=== PATIENT | female | born 1975 | race Hispanic/Latino ===

== ENCOUNTER → 2024-05-14 | Outpatient (CLI) | payer OTHER | END | disposition home or self-care (01) | LOC: RAH 09:39 | PROVIDERS: ATTEND Surgery | DX: C20 Malignant neoplasm of rectum (principal); Z93.2 Ileostomy status | CPT/HCPCS: 74270; Q9958 ==

== ENCOUNTER 2024-07-01 06:26 | Day surgery (SDC) | payer OTHER ==
[~2024-07-01] VITALS: Ht 154.9 cm; Wt 87.5 kg
[~2024-07-01 06:26] MED LIST: ACET-2247 PO; APIX5TAB PO; BUSP5TAB3 PO; DIPH1TAB PO; FOLI0.4T6 PO; INSU100C14 SQ; INSU100V37 SQ; MELA5CAP PO; MIDO10TA PO; MULT-1258 PO; ROSU5TAB43 PO; SODI650T PO; ZALE5CAP6 PO
[2024-07-01 07:13] VITALS: BP 98/67; PULSE 72; RESP 16; TEMP 96.5
[2024-07-01] MEDS ORDERED: MIDO10TA PO (07:20)
[2024-07-01] MEDS ORDERED: SERT50TA PO (07:28)
[2024-07-01] MEDS: 0.9%NACL 1000ML 1,000 ML IV ONE (07:41)
[2024-07-01] MEDS ORDERED: proPOFol 10 MG/ML 20ML VIAL IV ONE (07:57)
[2024-07-01] MEDS ORDERED: LIDOCAINE PF 100MG/5ML (2%) SYRINGE 5ML ONE (08:49)
[2024-07-01 09:56] VITALS: BP 108/56; PULSE 62; RESP 16; TEMP 97.9
[2024-07-01 10:11] VITALS: BP 103/54; PULSE 62; RESP 16
[2024-07-01 10:26] VITALS: BP 106/56; PULSE 60; RESP 16; TEMP 97.9
== END 2024-07-01 10:30 | disposition home or self-care (01) ==
LOC: DAH 06:26 → ENDO 06:26
PROVIDERS: ATTEND Surgery
DX: C20 Malignant neoplasm of rectum (principal); K62.4 Stenosis of anus and rectum; R93.3 Abnormal findings on diagnostic imaging of other parts of digestive tract; F41.9 Anxiety disorder, unspecified; F32.A Depression, unspecified; E11.22 Type 2 diabetes mellitus with diabetic chronic kidney disease; N18.9 Chronic kidney disease, unspecified; E78.5 Hyperlipidemia, unspecified; R19.7 Diarrhea, unspecified; Z86.718 Personal history of other venous thrombosis and embolism; Z98.0 Intestinal bypass and anastomosis status; Z79.899 Other long term (current) drug therapy
CPT/HCPCS: 45378; 84132; 82948; 81025; 36415; J7030; J2001; J2704; A4615; A4215 ×2; A4223; A4222; A4221; A4663; A4606; J3490

== ENCOUNTER 2024-10-12 10:00 | Inpatient (IN) | payer OTHER ==
[2024-10-09 13:03] LABS: BASOPHILS # (AUTO) 0.03 K/uL (0.00-0.20); BASOPHILS % (AUTO) 0.4 % (0.0-5.0); EOSINOPHILS # (AUTO) 0.14 K/uL (0.00-0.70); EOSINOPHILS % (AUTO) 1.9 % (0.0-8.0); HEMATOCRIT 32.5 % (36-48); IMMATURE GRANULOCYTE ABSOLUTE 0.01 K/uL (0-1); LYMPHOCYTES # (AUTO) 1.8 K/uL (1.0-4.8); LYMPHOCYTES % (AUTO) 23.9 % (21.0-51.0); MEAN CORPUSCULAR HEMOGLOBIN 28.3 pg (27.0-33.0); MEAN CORPUSCULAR HGB CONC 30.5 g/dL (32.0-36.0); MEAN CORPUSCULAR VOLUME 92.9 fL (79-99); MONOCYTES # (AUTO) 0.3 K/uL (0.1-1.0); MONOCYTES % (AUTO) 4.1 % (3.0-13.0); NEUTROPHILS # (AUTO) 5.2 K/uL (1.8-7.7); NEUTROPHILS % (AUTO) 69.6 % (40.0-77.0); PLATELET COUNT (AUTO) 335 K/uL (130-400); RED CELL DISTRIBUTION WIDTH 17.2 % (11.0-15.5); WHITE BLOOD COUNT (AUTO) 7.5 K/uL (4.8-10.8)
[2024-10-09 13:14] LABS: INR 1.03 (0.85-1.15); PROTHROMBIN TIME 11.1 SEC (9.6-11.6)
[2024-10-09 13:15] LABS: PARTIAL THROMBOPLASTIN TIME 26.7 SEC (26.3-35.5)
[2024-10-09 13:19] LABS: ALBUMIN 3.5 g/dL (3.5-5.0); BILIRUBIN,TOTAL 0.3 mg/dL (0.2-1.0); CREATININE 2.3 mg/dL (0.5-1.0); POTASSIUM 3.9 mmol/L (3.5-5.1); TOTAL PROTEIN, SERUM 8.6 g/dL (6.0-8.3)
[2024-10-09 13:26] VITALS: BP 108/69; PULSE 72; RESP 16; TEMP 97
--- NOTE | 2024-10-10 06:38 | EKG ---
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
[~2024-10-12] VITALS: Ht 154.9 cm; Wt 89.4 kg
[~2024-10-12 10:00] MED LIST changes: -APIX5TAB PO; -DIPH1TAB PO; -FOLI0.4T6 PO; -INSU100C14 SQ; -INSU100V37 SQ; -MIDO10TA PO; +MIDO10TA3 PO; -ROSU5TAB43 PO; +ROSU5TAB51 PO; +SERT50TA PO
[2024-10-12] MEDS ORDERED: INSU100V37 SQ (13:48)
[2024-10-12] MEDS ORDERED: DIPH1TAB PO (13:48)
[2024-10-12] MEDS ORDERED: INSU200I SQ (13:48)
[2024-10-12] MEDS ORDERED: FERR236T3 PO (13:48)
[2024-10-12] MEDS ORDERED: APIX2.5T PO (13:48)
[2024-10-12] MEDS ORDERED: INSU12CA IH (13:50)
--- NOTE | 2024-10-13 16:43 | NUR ---
RE: LABS REPORTED BMP RESULTS TO DR MORENO (PATIENT HAS HX OF CKD STAGE III-IV). NO NEW ORDERS RECEIVED. CBC/BMP RESULTS SENT TO AREN/DR MOORE. PER MD AREN IS IN SURGERY. WILL ASSESS PATIENT ON DOS AND GIVE ANY NEW ORDERS THEN.
[2024-10-14] VITALS (29 sets, daily range): BP systolic 97–121; BP diastolic 51–61; PULSE 70–88; RESP 13–20; TEMP 97–98.6
[2024-10-14] MEDS: INVANZ 1GM+NS 50ML IVPB 50 ML IV ONE (06:30)
[2024-10-14] MEDS ORDERED: LIDOCAINE PF 100MG/5ML (2%) SYRINGE 5ML ONE (06:47)
[2024-10-14] MEDS ORDERED: proPOFol 10 MG/ML 20ML VIAL IV ONE (06:47)
[2024-10-14] MEDS ORDERED: MIDAZOLAM HCL 1 MG/ML 2ML VIAL ONE (06:48)
[2024-10-14] MEDS ORDERED: FENTanyl CITRate PF 50 MCG/1 ML 2ML VIAL ONE ×2 (06:48→11:02)
[2024-10-14] MEDS ORDERED: rocuRONium bROMide 10MG/1ML 5ML VL ONE ×2 (06:48→09:05)
[2024-10-14] MEDS ORDERED: dexmedeTOMIDine HCL 200 MCG/2 ML VIAL IV ONE (07:11)
[2024-10-14] MEDS ORDERED: ketaMINE HCL 100 MG/ML 5ML VIAL IJ ONE (07:12)
[2024-10-14] MEDS ORDERED: phenylEPHRINE HCL 10 MG/ML 1ML VIAL IV ONE ×3 (08:36→09:38)
[2024-10-14] MEDS ORDERED: dexaMETHasone SOD PHOSPHATE 10MG/ML 1ML VIAL ONE (08:50)
[2024-10-14] MEDS ORDERED: ondanSETRON 4MG INJ ONE (08:50)
[2024-10-14] MEDS ORDERED: DiphenhydrAMINE HCL 50 MG/ML VIAL ONE (08:52)
[2024-10-14] MEDS ORDERED: ketOROlac 30MG VIAL (30MG/ML) ONE (08:52)
[2024-10-14] MEDS: 0.9%NACL 1000ML 1,000 ML IV ONE (09:00)
[2024-10-14] MEDS: LIDOCAINE 1%-EPI 1:100,000 20 ML VIAL ONE (09:08)
[2024-10-14] MEDS: BUPIvacaine/PF 0.5% 30ML VIAL ONE (09:08)
[2024-10-14] MEDS ORDERED: ePHEDrine SULFate 50 MG/ML AMPULE ONE (09:12)
[2024-10-14] MEDS ORDERED: GLYCOPYRROLATE 0.2 MG/ML 5 ML VIAL ONE (11:47)
[2024-10-14] MEDS ORDERED: NEOSTIGMINE METHYLSULFATE 1MG/ML IV ONE (11:48)
[2024-10-14] MEDS: INSULIN humuLIN R 100 UNIT/ML 3ML ONE (12:30)
[2024-10-14] MEDS: MEPERIDINE-PF 25 MG/ML SYG ONE (12:38)
[2024-10-14] MEDS ORDERED: D5W-1/2 NS/20MEQ KCL 1,000 ML IV SCH (13:00)
[2024-10-14] MEDS ORDERED: INSULIN humuLIN R 100 UNIT/ML 3ML SQ PRN (13:00)
--- NOTE | 2024-10-14 13:08 | OP ---
Operative Note: DATE OF PROCEDURE: 10/14/24 SURGEON: BECKY MOORE MD STATISTICAL REPORTING ANALYST: [None] ANESTHESIA: [General endotracheal anesthesia] ANESTHESIOLOGIST/CADDIE SUPERVISOR: [] PREOPERATIVE DIAGNOSIS: [Ileostomy status. Chronic kidney injury. Morbid obesity. History of rectal cancer. Rectal vaginal fistula.] POSTOPERATIVE DIAGNOSIS: [Ileostomy status. Chronic kidney injury. Morbid obesity. History of rectal cancer. Rectal vaginal fistula.] SYNOPSIS: [Loop transverse colostomy creation.] PROCEDURE: [1. Robotic assisted closure of ileostomy with small bowel resection. 2. Robotic creation of transverse colostomy. ] ESTIMATED BLOOD LOSS: [30 mL] INDICATIONS: [The patient is a very pleasant 49-year-old female who presents to the office with an ileostomy. She has a rectal vaginal fistula that has not healed. She had a colo-anal anastomosis performed in the past. She also now comes in with chronic kidney injury. She was offered closure of ileostomy with creation of colostomy. This is in the attempt of helping her with her kidney injury. The complications, risks, alternatives and benefits were discussed with the patient and family in detail. Risks include infection, bleeding, injury to surrounding structures, need for further surgery, leak from anastomosis, poor bowel function and need for further procedures. Her and her family's questions were answered to their satisfaction and they all wished to proceed with the operation.] DESCRIPTION OF PROCEDURE: [The patient brought to the operating theater and placed supine on the operating table. After appropriate general endotracheal anesthesia administered and IV antibiotics given the patient was placed in the low lithotomy position. Abdomen was prepped and draped in appropriate sterile surgical fashion. Local anesthetic was injected around the ileostomy. A dissection was created between the skin of the ileostomy in a circular fashion. This was taken all the way down to the fascia. The ileostomy was dissected free from the surrounding soft tissue and fascia. The ileostomy was then amputated with small bowel using a REYES 75 stapler. The mesentery was ligated using ties. A [id number] anastomosis was created between the small bowel using a REYES 75 stapler. The entero enterotomy was closed using a tl 60 stapler. The edges were reinforced with 3-0 Vicryl suture. Excellent hemostasis was achieved. The bowel was returned to the abdominal cavity and the David protractor was placed. A camera was then placed with this after insufflation of the abdomen. Five of the trocars were placed under direct visualization. The robot was docked in the sterile usual fashion. Attention was drawn to the pelvis were the colon was dissected free from surrounding tissues in the pelvis. It was noted to be densely adhered in the pelvis and there was concern for bleeding. The patient is a [employer] and so the decision was made to not continue with the pelvic dissection out of concern for pelvic bleeding. Given this a transverse colostomy was created in the left upper quadrant. This was a loop colostomy. The colon could not be brought up for an end colostomy given the shortened and thickened mesentery. The patient has morbid obesity which precludes an end stoma and this area. This was matured using chromic suture. The skin incisions were closed before maturation. The fascia for the site of the ileostomy closure was closed using 1. PDS in a running fashion. The skin was closed in this area with a pursestring and a wick was placed. All the wounds were irrigated. Local anesthetic was injected. The patient tolerated the procedure very well. There were no complications after the end of the procedure. Instrument, sponge and needle count were reported as correct x2 by nursing staff. Excellent hemostasis was achieved and there were no complications.] BECKY MOORE MD Oct 14, 2024 13:08
[2024-10-14] MEDS: INDOCYANINE GREEN 25 MG VIAL IJ ONE (15:17)
[2024-10-14] MEDS: SCOPOLAMINE HYDROBROMIDE 1 EACH ADH..PATCH TD ONE (15:17)
[2024-10-14] MEDS: acetaMINOPHEN 100 ML ONE (15:17)
[2024-10-14] MEDS: SUGAMMADEX SODIUM 200 MG/2 ML VIAL IV ONE (15:17)
--- NOTE | 2024-10-14 16:41 | CONS ---
[facility] CONSULTATION NOTE Date of Service: Oct 14, 2024 Reason for Consultation: [ Medical management ] HISTORY OF PRESENT ILLNESS: Date of service: 10/14/2024 This is a 49-year-old female with past medical history of hypertension, hype rlipidemia, diabetes mellitus type 2, obesity, CKD stage 4 who presented to the hospital secondary to ileostomy status. 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 She had a colo anal anastomosis performed in the past. She was evaluated by colorectal surgeon and offered closure of ileostomy with creation of colostomy. Patient agreed to the procedure. Patient underwent robotic assisted closure of ileostomy with small bowel resection and robotic creation of transverse colostomy. Postprocedure patient is currently sleeping at bedside. She does open her eyes and follow questions. Patient's family is present at bedside. Patient is unable to recall the medications she takes at home and family we will be trying to obtain her home medications. She currently denies any chest pain, shortness of breath, nausea, vomiting. She complains of mild discomfort in the abdominal wall postprocedure. Patient follows with Nephrology in [place]. REVIEW OF SYSTEMS CONSTITUTIONAL: Denies fevers, chills, or night sweats. No unintentional weight loss reported. NEUROLOGICAL: Denies headache, amaurosis fugax, motor weakness, sensory deficit, vertigo/spinning sensation, gait abnormalities, or tremors. ENT: No hearing loss, otalgia, otorrhea, rhinitis, rhinorrhea, hoarseness, or sore throat. CARDIOVASCULAR: Denies any exertional angina, dyspnea on exertion, orthopnea, paroxysmal nocturnal dyspnea, palpitations, life-threatening arrhythmias, claudication. PULMONARY: Denies any shortness of breath, cough, phlegm/sputum, hemoptysis, pleuritic chest pain. SLEEP: Denies morning headaches, daytime somnolence or napping. Denies difficulty falling asleep, staying asleep, waking from sleep. Denies knowledge of snoring. GASTROINTESTINAL: Denies any type of dysphagia to either liquids or solids. Denies nausea, vomiting, pyrosis, early satiety, abdominal pain, diarrhea, constipation, or changes in stool consistency or caliber. Denies coffee-ground emesis, hematemesis, hematochezia, or melanotic stools. GENITOURINARY: Denies frequency, urgency, nocturia, hematuria or incontinence (Storage/Irritative symptoms.) Low urinary stream, straining to void, urinary intermittency or hesitancy, splitting of the voiding stream, terminal dribbling. ENDOCRINOLOGIC: Denies polyuria, polydipsia, polyphagia or heat/cold intolerances. HEMATOLOGIC: Denies thrombophilia/previous clots, or coagulopathy/bleeding disorders. ONCOLOGIC: Denies personal history of malignancy. DERMATOLOGIC: Denies rashes or pruritus. PSYCHIATRIC: Denies any suicidal or homicidal ideation. Denies hallucinations. PAST MEDICAL HISTORY: Hypertension, hyperlipidemia, diabetes mellitus type 2, obesity, CKD stage 4 PAST SURGICAL HISTORY: History of ileostomy, history of colo anal anastomosis PAST SOCIAL HISTORY: Denied smoking, alcohol, drug FAMILY HISTORY: Denied any pertinent family history Coded Allergies: Penicillins (Unverified Allergy, Unknown, hives, 06/30/24) PHYSICAL EXAM GENERAL APPEARANCE: The patient is awake, alert, and oriented, in no acute cardiopulmonary distress. Patient sleeping at bedside but is able to follow conversations. Patient is obese NEUROLOGICAL: Cranial nerves II-XII grossly intact. Motor is 5/5 in bilateral upper and lower extremities proximal to distal. No sensory deficits. HEENT: Face is symmetric. Pupils are equal and reactive. Extraocular movements are intact. NECK: Supple. No JVD. No thyromegaly. No submental, submandibular, pre- /postauricular, occipital or supraclavicular lymphadenopathy. CHEST: Normal chest expansion. No Telemetry. LUNGS: Absence of any rales, rhonchi or any wheezing. CARDIOVASCULAR: Regular. S1 and S2 normal. No appreciable rubs, murmurs or gallops. ABDOMEN: Soft, nontender, and nondistended. There is no rebound, voluntary guarding, or rigidity. : Deferred. No Armijo. EXTREMITIES: Non-edematous and not cyanotic. No clubbing. Good capillary re fill. SKIN: No skin breakdown. Vital Sign (Last 24 Hours) 10/14/24 10/14/24 13:02 14:30 Temp 97.3 Pulse 75 Resp 18 B/P (MAP) 105/51 Pulse Ox 98 O2 Delivery Room Air O2 Flow Rate 2.0 LABS: Laboratory: Test 10/14/24 16:04 10/14/24 06:54 Range/Units Whole Blood Glucose 362 H 70-110 MG/DL Urine HCG, Qualitative NEGATIVE NEGATIVE DIAGNOSTICS / RADIOLOGY: [ ] ASSESSMENT: Ileostomy status status post robotic assisted ileostomy closure with small bowel resection and robotic creation of transverse colostomy History of CKD stage 4 Diabetes mellitus type 2 with associated hyperglycemia Hypertension Obesity BMI 37.0 Hyperlipidemia PLAN: - continue with admission and medical-surgical unit -we will switch patient from D5 half NS secondary to hyperglycemia to normal saline. Patient will be started on Lantus 14 units at bedside and sliding scale insulin. Have requested nursing to obtain patient's accurate list of medications so it can be reconciled -continue with postoperative recommendations per surgery. -we will defer to surgery regarding pain management. -closely monitor creatinine. -further orders per hospitalization course. MIRANDA Kingsley MD, MD Oct 14, 2024 16:41
[2024-10-14] MEDS ORDERED: DEXTROSE 50%-WATER 50 ML DISP.SYRIN IV PRN (17:00)
[2024-10-14] MEDS: 0.9%NACL 1000ML 1,000 ML IV SCH (17:00)
[2024-10-14] MEDS ORDERED: GLUCAGON 1MG KIT 1 MG ML IM PRN (17:00)
[2024-10-14] MEDS: FAMOTIDINE 20MG VIAL IV SCH (20:55)
[2024-10-14] MEDS: morPHINE 4 MG SYG IV PRN (20:55)
[2024-10-14] MEDS: INSULIN humuLIN R 100 UNIT/ML 3ML SQ SCH (20:58)
[2024-10-14] MEDS: INSULIN GLARgine 100 UNITS/ML 10 ML VIAL SQ SCH (20:59)
[2024-10-15] VITALS (8 sets, daily range): BP systolic 95–135; BP diastolic 51–65; PULSE 75–99; RESP 18–20; TEMP 97.7–98.7; O2SAT 97–98
--- NOTE | 2024-10-15 05:00 | NUR ---
BLADDER TRAINING STARTS AT THIS TIME, CALL LIGHT WITHIN REACH WILL CONT TO MONITOR
[2024-10-15 05:26] LABS: BASOPHILS # (AUTO) 0.02 K/uL (0.00-0.20); BASOPHILS % (AUTO) 0.2 % (0.0-5.0); HEMATOCRIT 27.9 % (36-48); IMMATURE GRANULOCYTE ABSOLUTE 0.04 K/uL (0-1); LYMPHOCYTES # (AUTO) 1.2 K/uL (1.0-4.8); LYMPHOCYTES % (AUTO) 10.9 % (21.0-51.0); MEAN CORPUSCULAR HEMOGLOBIN 28.8 pg (27.0-33.0); MEAN CORPUSCULAR HGB CONC 30.5 g/dL (32.0-36.0); MEAN CORPUSCULAR VOLUME 94.6 fL (79-99); MONOCYTES # (AUTO) 0.6 K/uL (0.1-1.0); MONOCYTES % (AUTO) 5.6 % (3.0-13.0); NEUTROPHILS # (AUTO) 8.8 K/uL (1.8-7.7); NEUTROPHILS % (AUTO) 82.9 % (40.0-77.0); PLATELET COUNT (AUTO) 295 K/uL (130-400); RED BLOOD CELL COUNT(AUTO) 2.95 MIL/uL (4.00-5.50); RED CELL DISTRIBUTION WIDTH 17.5 % (11.0-15.5); WHITE BLOOD COUNT (AUTO) 10.6 K/uL (4.8-10.8)
[2024-10-15 05:39] LABS: CREATININE 2.4 mg/dL (0.5-1.0)
[2024-10-15 05:52] LABS: HEMOGLOBIN A1C 8.6 % (4.0-6.0)
--- NOTE | 2024-10-15 07:04 | PN ---
[facility] PROGRESS NOTE Date of Visit: Oct 15, 2024 Time of Visit: 07:02 Events / Notes: [49 YO with hx of rectal cancer s/p lar with diverting ileostomy and rectovaginal fistula who underwent a closure of ileostomy with small bowel resection and creation of colostomy. She is doing well this morning. VSS. She has tolerated small amount of clear fluids. BBS clear. Abdomen is soft and not distended. Mild tenderness present. Active BS. Ileostomy incision dressing D& I. Colostomy with small amount of serous watery output. Armijo cath with cyu. Oriented to poc. Encouraged ambulation and I/s exercises. Patient agreed. ] Review of Systems: CONSTITUTIONAL: No malaise or change in sensation of wellbeing. ENMT: No rhinorrhea, otorrhea, sinus pain, ear ache. CARDIOVASCULAR: No angina, palpitations, orthopnea or paroxysmal dyspnea. RESPIRATORY: No SOB. GASTROINTESTINAL: No abdominal pain, nausea, vomiting, diarrhea, hematemesis, melena or change in the patient's habitual bowel movements consistency/number. GENITOURINARY: No dysuria, hematuria or change in bladder continence. MUSCULOSKELETAL: No new muscle pain or decrease in muscular strength. No new joint swelling, redness or tenderness. SKIN: No new rash. Physical Exam: GEN: Awake, alert, oriented in person, time and place, and in no acute distress. HEENT: No rhinorrhea. Oral pharyngeal mucosa is pink, moist and within normal limits. CHEST: Inspection, palpation of the chest were unremarkable. Lung auscultation revealed normal breath sounds bilaterally. CARDIAC: Heart sounds are regular. ABD: Soft, non-tender and not distended. No peritoneal signs on palpation. No organomegaly. Normal bowel sounds. Colostomy with small amount of serous output. Ileostomy incision dressing D&I EXT: No cyanosis or clubbing. No edema. SKIN: Intact. No rashes. JOINTS: No evidence of synovitis or acute arthritis. NEURO: Alert and oriented to name, place and person. Cranial nerve examination is unremarkable. No focal motor deficits. Normal speech.Strength is normal. Vital Signs (last 8hr) Date Time Temp Pulse Resp B/P (MAP) Pulse Ox O2 Delivery O2 Flow Rate FiO2 10/15/24 04:00 98.8 80 18 100/57 95 Room Air 10/15/24 00:00 98.4 83 18 102/58 96 Room Air Laboratory: [ ] Laboratory: Test 10/15/24 05:37 10/15/24 04:54 10/14/24 20:27 10/14/24 06:54 Range/Units Whole Blood Glucose 208 H 70-110 MG/DL White Blood Count 10.6 4.8-10.8 K/uL Red Blood Count 2.95 L 4.00-5.50 MIL/uL Hemoglobin 8.5 L 12.0-16.0 g/dL Hematocrit 27.9 L 36-48 % Mean Corpuscular Volume 94.6 79-99 fL Mean Corpuscular Hemoglobin 28.8 27.0-33.0 pg Mean Corpuscular Hemoglobin Concent 30.5 L 32.0-36.0 g/dL Red Cell Distribution Width 17.5 H 11.0-15.5 % Platelet Count 295 130-400 K/uL Mean Platelet Volume 9.4 7.5-10.5 fL Immature Granulocyte % (Auto) 0.4 0-1 % Neutrophils (%) (Auto) 82.9 H 40.0-77.0 % Lymphocytes (%) (Auto) 10.9 L 21.0-51.0 % Monocytes (%) (Auto) 5.6 3.0-13.0 % Eosinophils (%) (Auto) 0.0 0.0-8.0 % Basophils (%) (Auto) 0.2 0.0-5.0 % Neutrophils # (Auto) 8.8 H 1.8-7.7 K/uL Lymphocytes # (Auto) 1.2 1.0-4.8 K/uL Monocytes # (Auto) 0.6 0.1-1.0 K/uL Eosinophils # (Auto) 0.00 0.00-0.70 K/uL Basophils # (Auto) 0.02 0.00-0.20 K/uL Absolute Immature Granulocyte (auto 0.04 0-1 K/uL Nucleated Red Blood Cells 0.0 0.0-0.19 % Sodium Level 146 H 136-145 mmol/L Potassium Level 4.0 3.5-5.1 mmol/L Chloride Level 116 H 101-111 mmol/L Carbon Dioxide Level 17 L 21-32 mmol/L Blood Urea Nitrogen 28 H 7-18 mg/dL Creatinine 2.4 H 0.5-1.0 mg/dL Glomerular Filtration Rate Calc 24 >90 mL/min Random Glucose 219 H 70-105 mg/dL Hemoglobin A1c 8.6 H 4.0-6.0 % Estimated Average Glucose (eAG) 200 H 70-126 mg/dL Total Calcium 8.6 8.5-10.1 mg/dL Bedside Glucose Comment Notified Nurse Urine HCG, Qualitative NEGATIVE NEGATIVE Current Medications Medications (Trade) Dose Ordered Sig/Chan Route PRN Reason Start Time Stop Time Status Last Admin Dose Admin Acetaminophen (TYLenol 325MG TAB) 650 mg Q4H PRN PO TEMPERATURE GREATER THAN 101 10/14/24 13:00 11/13/24 12:59 Acetaminophen/ Hydrocodone Bitart (NORco 5/325MG) 1 tab Q4H PRN PO MODERATE PAIN (4-6) 10/14/24 13:00 10/19/24 12:59 Dextrose (D50w) 50 ml AD PRN IV HYPOGLYCEMIA PROTOCOL 10/14/24 17:00 11/13/24 16:59 Famotidine (Pepcid 20mg Vial) 20 mg Q24H IV 10/14/24 21:00 11/13/24 20:59 10/14/24 20:55 20 MG Glucagon (Glucagon 1mg Kit) 1 mg AD PRN IM HYPOGLYCEMIA PROTOCOL 10/14/24 17:00 11/13/24 16:59 Insulin Glargine (LANtus 100 UNITS/ML 10 ML VIAL) 14 units HS SQ 10/14/24 21:00 11/13/24 20:59 10/14/24 20:59 14 UNITS Insulin Human Regular (humuLIN R 100 UNIT/ML 3ML) AD PRN SQ SLIDING SCALE COVERAGE 10/14/24 13:00 10/14/24 16:43 DC Insulin Human Regular (humuLIN R 100 UNIT/ML 3ML) INSULIN SLIDING SCAL... ACHS SQ 10/14/24 21:00 11/13/24 20:59 10/15/24 06:36 6 UNIT Morphine Sulfate (morPHINE 2MG SYG) 2 mg Q3H PRN IV MODERATE PAIN (4-6) IF NPO 10/14/24 13:00 10/21/24 12:59 Morphine Sulfate (morPHINE 4MG SYG) 4 mg Q3H PRN IV SEVERE PAIN (7-10) 10/14/24 13:00 10/21/24 12:59 12/18/24 20:55 4 MG Ondansetron HCl (zoFRAN 4MG INJ) 4 mg Q4H PRN IVP NAUSEA 10/14/24 13:00 11/13/24 12:59 Potassium Chloride/Dextrose/ Sod Cl 1,000 ml @ 75 mls/hr [id number] IV 10/14/24 13:00 10/14/24 16:43 DC Sodium Chloride 1,000 ml @ 75 mls/hr [id number] IV 10/14/24 17:00 11/13/24 16:59 10/14/24 20:59 75 MLS/HR ] Assessment: [[Ileostomy status. Chronic kidney injury. Morbid obesity. History of rectal cancer. Rectal vaginal fistula.] ] Plan: [Advance diet Encourage I/S exercises Encourage ambulation Pain meds as needed Antiemetics prn Plan for disposition in the next 24-48 hours Please call with questions, concerns, and change in clinical status Appreciate hospitalist's assistance in our patient care. ] LALITA LAWS NP Oct 15, 2024 07:04
[2024-10-15] MEDS: INSULIN GLARgine 100 UNITS/ML 10 ML VIAL SQ SCH (09:00)
[2024-10-15] MEDS: INSULIN humuLIN R 100 UNIT/ML 3ML SQ SCH (11:30)
[2024-10-15 11:41] LABS: ABG OXYGEN SATURATION 95.5 % (94.0-98.0); BASE EXCESS,VENOUS BLOOD GAS -10.4 (-2.0-3.0); DEVICE COMMENT LILIA RN V; HCO3,VENOUS BLOOD GAS 14.4 (22.0-29.0); PCO2,VENOUS BLOOD GAS 30 (38-54); PH,VENOUS BLOOD GAS 7.306 (7.320-7.430); PO2,VENOUS BLOOD GAS 83.2 mmHg (23.0-48.0); VENT MODE, BG RA (ROOM AIR)
--- NOTE | 2024-10-15 12:28 | CONS ---
CONSULT NOTE: endocrinology consult Date of Service: Oct 15, 2024 Reason for Consultation: uncontrolled dm-2 chief complaint: s/p ileostomy HISTORY OF PRESENT ILLNESS: This is a 49-year-old female with past medical history of hypertension, hyperlipidemia, diabetes mellitus type 2, obesity, CKD stage 4 who presented to the hospital secondary to ileostomy status. 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 She had a colo anal anastomosis performed in the past. She was evaluated by colorectal surgeon and offered closure of ileostomy with creation of colostomy. Patient underwent robotic assisted closure of ileostomy with small bowel resection and robotic creation of transverse colostomy. Postprocedure patient is currently sleeping at bedside. She does open her eyes and follow questions. Patient's family is present at bedside. She currently denies any chest pain, shortness of breath, nausea, vomiting. She complains of mild discomfort in the abdominal wall postprocedure. Patient follows with Nephrology in [place]. patient has dm-2 for many years and use toujeo 10 units daily, humalog 30 units bid and afrezza insulin 20 units before lunch. hba1c 8.6% and she follows for dm-2 with endocrinology in [place]. REVIEW OF SYSTEMS CONSTITUTIONAL: Denies fevers, chills, or night sweats. No unintentional weight loss reported. NEUROLOGICAL: Denies headache, amaurosis fugax, motor weakness, sensory def icit, vertigo/spinning sensation, gait abnormalities, or tremors. ENT: No hearing loss, otalgia, otorrhea, rhinitis, rhinorrhea, hoarseness, or sore throat. CARDIOVASCULAR: Denies any exertional angina, dyspnea on exertion, orthopnea, paroxysmal nocturnal dyspnea, palpitations, life-threatening arrhythmias, claudication. PULMONARY: Denies any shortness of breath, cough, phlegm/sputum, hemoptysis, pleuritic chest pain. SLEEP: Denies morning headaches, daytime somnolence or napping. Denies difficulty falling asleep, staying asleep, waking from sleep. Denies knowledge of snoring. GASTROINTESTINAL: Denies any type of dysphagia to either liquids or solids. Denies nausea, vomiting, pyrosis, early satiety, abdominal pain, diarrhea, constipation, or changes in stool consistency or caliber. Denies coffee-ground emesis, hematemesis, hematochezia, or melanotic stools. GENITOURINARY: Denies frequency, urgency, nocturia, hematuria or incontinence (Storage/Irritative symptoms.) Low urinary stream, straining to void, urinary intermittency or hesitancy, splitting of the voiding stream, terminal dribbling. ENDOCRINOLOGIC: Denies polyuria, polydipsia, polyphagia or heat/cold intolerances. HEMATOLOGIC: Denies thrombophilia/previous clots, or coagulopathy/bleeding disorders. ONCOLOGIC: Denies personal history of malignancy. DERMATOLOGIC: Denies rashes or pruritus. PSYCHIATRIC: Denies any suicidal or homicidal ideation. Denies hallucinations. PAST MEDICAL HISTORY: Hypertension, hyperlipidemia, diabetes mellitus type 2, obesity, CKD stage 4 PAST SURGICAL HISTORY: History of ileostomy, history of colo anal anastomosis PAST SOCIAL HISTORY: Denied smoking, alcohol, drug FAMILY HISTORY: Denied any pertinent family history Coded Allergies: Penicillins (Unverified Allergy, Unknown, hives, 06/30/24) PHYSICAL EXAM GENERAL APPEARANCE: The patient is awake, alert, and oriented, in no acute cardiopulmonary distress. Patient sleeping at bedside but is able to follow conversations. Patient is obese NEUROLOGICAL: Cranial nerves II-XII grossly intact. Motor is 5/5 in bilateral upper and lower extremities proximal to distal. No sensory deficits. HEENT: Face is symmetric. Pupils are equal and reactive. Extraocular movements are intact. NECK: Supple. No JVD. No thyromegaly. No submental, submandibular, pre- /postauricular, occipital or supraclavicular lymphadenopathy. CHEST: Normal chest expansion. No Telemetry. LUNGS: Absence of any rales, rhonchi or any wheezing. CARDIOVASCULAR: Regular. S1 and S2 normal. No appreciable rubs, murmurs or gallops. ABDOMEN: Soft, nontender, and nondistended. There is no rebound, voluntary guarding, or rigidity. : Deferred. No Armijo. EXTREMITIES: Non-edematous and not cyanotic. No clubbing. Good capillary refill. SKIN: No skin breakdown. ASSESSMENT: Diabetes mellitus type 2 with associated hyperglycemia patient has dm-2 for many years and use toujeo 10 units daily, humalog 30 units bid and afrezza insulin 20 units before lunch. hba1c 8.6% and she follows for dm-2 with endocrinology in [place]. Ileostomy status status post robotic assisted ileostomy closure with small bowel resection and robotic creation of transverse colostomy History of CKD stage 4 Hypertension Obesity BMI 37.0 Hyperlipidemia PLAN: - increase lantus to 25 units tid before meals -start regular insulin 10 units qac before meals continue medium dose ssi check glucose q x 6 hourly follows with endocrinology in [place] thanks for allowing me to participate in patient care and will continue to follow up. Vital Signs 10/14/24 10/14/24 10/15/24 16:00 18:50 11:59 Temp 97.7 Pulse 75 Resp 18 B/P (MAP) 97/51 Pulse Ox 98 O2 Delivery Room Air O2 Flow Rate 0 FiO2 21 Hematology Labs: Test 10/15/24 04:54 Range/Units White Blood Count 10.6 4.8-10.8 K/uL Red Blood Count 2.95 L 4.00-5.50 MIL/uL Hemoglobin 8.5 L 12.0-16.0 g/dL Hematocrit 27.9 L 36-48 % Mean Corpuscular Volume 94.6 79-99 fL Mean Corpuscular Hemoglobin 28.8 27.0-33.0 pg Mean Corpuscular Hemoglobin Concent 30.5 L 32.0-36.0 g/dL Red Cell Distribution Width 17.5 H 11.0-15.5 % Platelet Count 295 130-400 K/uL Mean Platelet Volume 9.4 7.5-10.5 fL Immature Granulocyte % (Auto) 0.4 0-1 % Neutrophils (%) (Auto) 82.9 H 40.0-77.0 % Lymphocytes (%) (Auto) 10.9 L 21.0-51.0 % Monocytes (%) (Auto) 5.6 3.0-13.0 % Eosinophils (%) (Auto) 0.0 0.0-8.0 % Basophils (%) (Auto) 0.2 0.0-5.0 % Neutrophils # (Auto) 8.8 H 1.8-7.7 K/uL Lymphocytes # (Auto) 1.2 1.0-4.8 K/uL Monocytes # (Auto) 0.6 0.1-1.0 K/uL Eosinophils # (Auto) 0.00 0.00-0.70 K/uL Basophils # (Auto) 0.02 0.00-0.20 K/uL Absolute Immature Granulocyte (auto 0.04 0-1 K/uL Nucleated Red Blood Cells 0.0 0.0-0.19 % Chemistry Labs: Test 10/15/24 05:37 10/15/24 04:54 10/14/24 20:27 Range/Units Whole Blood Glucose 208 H 70-110 MG/DL Sodium Level 146 H 136-145 mmol/L Potassium Level 4.0 3.5-5.1 mmol/L Chloride Level 116 H 101-111 mmol/L Carbon Dioxide Level 17 L 21-32 mmol/L Blood Urea Nitrogen 28 H 7-18 mg/dL Creatinine 2.4 H 0.5-1.0 mg/dL Glomerular Filtration Rate Calc 24 >90 mL/min Random Glucose 219 H 70-105 mg/dL Hemoglobin A1c 8.6 H 4.0-6.0 % Estimated Average Glucose (eAG) 200 H 70-126 mg/dL Total Calcium 8.6 8.5-10.1 mg/dL Bedside Glucose Comment Notified Nurse Current Medications Medications (Trade) Dose Ordered Sig/Chan Route Start Time Stop Time Status Last Admin Dose Admin Famotidine (Pepcid 20mg Vial) 20 mg Q24H IV 10/14/24 21:00 11/13/24 20:59 10/14/24 20:55 20 MG Insulin Glargine (LANtus 100 UNITS/ML 10 ML VIAL) 14 units HS SQ 10/14/24 21:00 10/15/24 07:31 DC 10/14/24 20:59 14 UNITS Insulin Glargine (LANtus 100 UNITS/ML 10 ML VIAL) 20 units DAILY SQ 10/15/24 09:00 11/13/24 20:59 Insulin Human Regular (humuLIN R 100 UNIT/ML 3ML) 5 unit TIDAC SQ 10/15/24 11:30 11/14/24 11:29 Insulin Human Regular (humuLIN R 100 UNIT/ML 3ML) INSULIN SLIDING SCAL... ACHS SQ 10/14/24 21:00 11/13/24 20:59 10/15/24 06:36 6 UNIT Potassium Chloride/Dextrose/ Sod Cl 1,000 ml @ 75 mls/hr [id number] IV 10/14/24 13:00 10/14/24 16:43 DC Sodium Bicarbonate (Sodium Bicarbonate) 650 mg TID PO 10/15/24 14:00 11/14/24 13:59 Sodium Chloride 1,000 ml @ 75 mls/hr [id number] IV 10/14/24 17:00 11/13/24 16:59 10/14/24 20:59 75 MLS/HR RUBIO FARRIS MD Oct 15, 2024 12:28
[2024-10-15] MEDS: SODIUM BICARBONATE 650 MG TAB PO SCH (13:12)
[2024-10-15] MEDS: HYDROcodone/APAP 5/325 1 TAB TABLET PO PRN (13:12)
--- NOTE | 2024-10-15 13:19 | PN ---
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 She had coli annual anastomosis perform the past, she was evaluated colorectal surgeon and offered closure of ileostomy with creation of colostomy. She was evaluated this morning and she is in a lot of pain reporting 10/10 from the pain scale. Patient was also looking weak, patient was acidotic and we started her with ampule of bicarb and she will receive p.o. sodium bicarb starting tomorrow.] REVIEW OF SYSTEMS CONSTITUTIONAL: Denies fevers, chills, or night sweats. No unintentional weight loss reported. NEUROLOGICAL: Denies headache, amaurosis fugax, motor weakness, sensory deficit, vertigo/spinning sensation, gait abnormalities, or tremors. ENT: No hearing loss, otalgia, otorrhea, rhinitis, rhinorrhea, hoarseness, or sore throat. CARDIOVASCULAR: Denies any exertional angina, dyspnea on exertion, orthopnea, paroxysmal nocturnal dyspnea, palpitations, life-threatening arrhythmias, claudication. PULMONARY: Denies any shortness of breath, cough, phlegm/sputum, hemoptysis, pleuritic chest pain. SLEEP: Denies morning headaches, daytime somnolence or napping. Denies difficulty falling asleep, staying asleep, waking from sleep. Denies knowledge of snoring. GASTROINTESTINAL: Denies any type of dysphagia to either liquids or solids. Denies nausea, vomiting, pyrosis, early satiety, abdominal pain, diarrhea, constipation, or changes in stool consistency or caliber. Denies coffee-ground emesis, hematemesis, hematochezia, or melanotic stools. GENITOURINARY: Denies frequency, urgency, nocturia, hematuria or incontinence (Storage/Irritative symptoms.) Low urinary stream, straining to void, urinary intermittency or hesitancy, splitting of the voiding stream, terminal dribbling. ENDOCRINOLOGIC: Denies polyuria, polydipsia, polyphagia or heat/cold intolerances. HEMATOLOGIC: Denies thrombophilia/previous clots, or coagulopathy/bleeding disorders. ONCOLOGIC: Denies personal history of malignancy. DERMATOLOGIC: Denies rashes or pruritus. PSYCHIATRIC: Denies any suicidal or homicidal ideation. Denies hallucinations. PHYSICAL EXAM GENERAL APPEARANCE: The patient is awake, alert, and oriented, in no acute cardiopulmonary distress. Patient sleeping at bedside but is able to follow conversations. Patient is obese NEUROLOGICAL: Cranial nerves II-XII grossly intact. Motor is 5/5 in bilateral upper and lower extremities proximal to distal. No sensory deficits. HEENT: Face is symmetric. Pupils are equal and reactive. Extraocular movements are intact. NECK: Supple. No JVD. No thyromegaly. No submental, submandibular, pre- /postauricular, occipital or supraclavicular lymphadenopathy. CHEST: Normal chest expansion. No Telemetry. LUNGS: Absence of any rales, rhonchi or any wheezing. CARDIOVASCULAR: Regular. S1 and S2 normal. No appreciable rubs, murmurs or gallops. ABDOMEN: Soft, nontender, and nondistended. There is no rebound, voluntary guarding, or rigidity. : Deferred. No Armijo. EXTREMITIES: Non-edematous and not cyanotic. No clubbing. Good capillary refill. SKIN: No skin breakdown. Vital Signs (last 8hr) Date Time Temp Pulse Resp B/P (MAP) Pulse Ox O2 Delivery O2 Flow Rate FiO2 10/15/24 11:59 97.7 75 18 97/51 98 Room Air 10/15/24 08:40 98.6 77 18 95/54 98 Room Air LABS: Laboratory: Test 10/15/24 11:39 10/15/24 05:37 10/15/24 04:54 10/14/24 20:27 Range/Units Blood Gas Specimen Type Venous Arterial Blood Oxygen Saturation 95.5 94.0-98.0 % Venous Blood pH 7.306 L 7.320-7.430 Venous Blood pCO2 at Patient Temp 30 L 38-54 Venous Blood pO2 at Patient Temp 83.2 H 23.0-48.0 mmHg Venous Blood HCO3 14.4 L 22.0-29.0 Venous Blood Base Excess -10.4 L -2.0-3.0 Blood Gas Temperature 37.0 35.5-37.0 CELSIUS Blood Gas Vent Mode RA ROOM AIR FiO2 21.0 % Blood Gas Specimen Comment RAQUEL RN V Whole Blood Glucose 208 H 70-110 MG/DL White Blood Count 10.6 4.8-10.8 K/uL Red Blood Count 2.95 L 4.00-5.50 MIL/uL Hemoglobin 8.5 L 12.0-16.0 g/dL Hematocrit 27.9 L 36-48 % Mean Corpuscular Volume 94.6 79-99 fL Mean Corpuscular Hemoglobin 28.8 27.0-33.0 pg Mean Corpuscular Hemoglobin Concent 30.5 L 32.0-36.0 g/dL Red Cell Distribution Width 17.5 H 11.0-15.5 % Platelet Count 295 130-400 K/uL Mean Platelet Volume 9.4 7.5-10.5 fL Immature Granulocyte % (Auto) 0.4 0-1 % Neutrophils (%) (Auto) 82.9 H 40.0-77.0 % Lymphocytes (%) (Auto) 10.9 L 21.0-51.0 % Monocytes (%) (Auto) 5.6 3.0-13.0 % Eosinophils (%) (Auto) 0.0 0.0-8.0 % Basophils (%) (Auto) 0.2 0.0-5.0 % Neutrophils # (Auto) 8.8 H 1.8-7.7 K/uL Lymphocytes # (Auto) 1.2 1.0-4.8 K/uL Monocytes # (Auto) 0.6 0.1-1.0 K/uL Eosinophils # (Auto) 0.00 0.00-0.70 K/uL Basophils # (Auto) 0.02 0.00-0.20 K/uL Absolute Immature Granulocyte (auto 0.04 0-1 K/uL Nucleated Red Blood Cells 0.0 0.0-0.19 % Sodium Level 146 H 136-145 mmol/L Potassium Level 4.0 3.5-5.1 mmol/L Chloride Level 116 H 101-111 mmol/L Carbon Dioxide Level 17 L 21-32 mmol/L Blood Urea Nitrogen 28 H 7-18 mg/dL Creatinine 2.4 H 0.5-1.0 mg/dL Glomerular Filtration Rate Calc 24 >90 mL/min Random Glucose 219 H 70-105 mg/dL Hemoglobin A1c 8.6 H 4.0-6.0 % Estimated Average Glucose (eAG) 200 H 70-126 mg/dL Total Calcium 8.6 8.5-10.1 mg/dL Bedside Glucose Comment Notified Nurse Test 10/14/24 06:54 Range/Units Urine HCG, Qualitative NEGATIVE NEGATIVE Current Medications Medications (Trade) Dose Ordered Sig/Chan Route PRN Reason Start Time Stop Time Status Last Admin Dose Admin Acetaminophen (TYLenol 325MG TAB) 650 mg Q4H PRN PO TEMPERATURE GREATER THAN 101 10/14/24 13:00 11/13/24 12:59 Acetaminophen/ Hydrocodone Bitart (NORco 5/325MG) 1 tab Q4H PRN PO MODERATE PAIN (4-6) 10/14/24 13:00 10/19/24 12:59 10/15/24 13:12 1 TAB Dextrose (D50w) 50 ml AD PRN IV HYPOGLYCEMIA PROTOCOL 10/14/24 17:00 11/13/24 16:59 Famotidine (Pepcid 20mg Vial) 20 mg Q24H IV 10/14/24 21:00 11/13/24 20:59 10/14/24 20:55 20 MG Glucagon (Glucagon 1mg Kit) 1 mg AD PRN IM HYPOGLYCEMIA PROTOCOL 10/14/24 17:00 11/13/24 16:59 Insulin Glargine (LANtus 100 UNITS/ML 10 ML VIAL) 14 units HS SQ 10/14/24 21:00 10/15/24 07:31 DC 10/14/24 20:59 14 UNITS Insulin Glargine (LANtus 100 UNITS/ML 10 ML VIAL) 20 units DAILY SQ 10/15/24 09:00 11/13/24 20:59 Insulin Human Regular (humuLIN R 100 UNIT/ML 3ML) AD PRN SQ SLIDING SCALE COVERAGE 10/14/24 13:00 10/14/24 16:43 DC Insulin Human Regular (humuLIN R 100 UNIT/ML 3ML) 5 unit TIDAC SQ 10/15/24 11:30 11/14/24 11:29 Insulin Human Regular (humuLIN R 100 UNIT/ML 3ML) INSULIN SLIDING SCAL... ACHS SQ 10/14/24 21:00 11/13/24 20:59 10/15/24 06:36 6 UNIT Morphine Sulfate (morPHINE 2MG SYG) 2 mg Q3H PRN IV MODERATE PAIN (4-6) IF NPO 10/14/24 13:00 10/21/24 12:59 Morphine Sulfate (morPHINE 4MG SYG) 4 mg Q3H PRN IV SEVERE PAIN (7-10) 10/14/24 13:00 10/21/24 12:59 10/14/24 20:55 4 MG Ondansetron HCl (zoFRAN 4MG INJ) 4 mg Q4H PRN IVP NAUSEA 10/14/24 13:00 11/13/24 12:59 Potassium Chloride/Dextrose/ Sod Cl 1,000 ml @ 75 mls/hr [id number] IV 10/14/24 13:00 10/14/24 16:43 DC Sodium Bicarbonate (Sodium Bicarbonate) 650 mg TID PO 10/15/24 14:00 11/14/24 13:59 10/15/24 13:12 650 MG Sodium Chloride 1,000 ml @ 75 mls/hr [id number] IV 10/14/24 17:00 11/13/24 16:59 10/14/24 20:59 75 MLS/HR DIAGNOSTICS / RADIOLOGY: [ ] ASSESSMENT: Metabolic acidosis, POA Ileostomy status status post robotic assisted ileostomy closure with small bowel resection and robotic creation of transverse colostomy History of CKD stage 4 Diabetes mellitus type 2 with associated hyperglycemia Hypertension Obesity BMI 37.0 Hyperlipidemia PLAN: - continue with admission and medical-surgical unit -we will switch patient from D5 half NS secondary to hyperglycemia to normal saline. Patient will be started on Lantus 14 units at bedside and sliding scale insulin. Have requested nursing to obtain patient's accurate list of medications so it can be reconciled -continue with postoperative recommendations per surgery. -we will defer to surgery regarding pain management. -closely monitor creatinine. -venous blood gas stat, noted metabolic acidosis. Patient was given ampulla of bicarb and we will start p.o. bicarb in the morning We will repeat labs in the morning Continue with GI and DVT prophylaxis Case was seen and examined with Dr. Elizondo, above plan was formulated ATTESTATION BY PHYSICIAN I have seen and examined the patient. I reviewed the documentation, medical decision making, and treatment plan as noted by the mid-level provider above. I agree with the findings and plan of care. YAS ELIZONDO MD, [facility] Oct 15, 2024 13:19
[2024-10-15] MEDS: SODIUM BICARB 50MEQ 50ML VIAL IV ONE (13:37)
--- NOTE | 2024-10-15 14:53 | NUR ---
Discharge Planning: Pt. states she lives with her spouse Josef Martell. Contact number is . PCP is Dr. Mik Logan and preferred pharmacy is [facility] in [place], [place]. Pt. is employed at [employer]. Independent with all ADL's. No home health, provider services, or DME. DCP is for home. Addendum: 10/15/24 at 1455 by SAKINA BROWN RN Amended: Links added.
--- NOTE | 2024-10-15 21:20 | NUR ---
MEDS SHIFT ASSESSMENT DONE, PLEASE REFER TO CHART. PT CLAIMS OF POST OP ABDOMINAL PAINS. MEDICATED WITH MORPHINE IV FOR PAIN AND DUE MEDS ADMINISTERED, TOLERATED WELL. KEPT RESTED AND COMFORTABLE IN BED. CALL LIGHT WITHIN REACH. FAMILY AT BEDSIDE. WILL RE-ASSESS PT.
[2024-10-16] VITALS (8 sets, daily range): BP systolic 106–116; BP diastolic 56–64; PULSE 61–81; RESP 16–20; TEMP 98.2–99.7; O2SAT 97
[2024-10-16 05:51] LABS: BASOPHILS # (AUTO) 0.02 K/uL (0.00-0.20); BASOPHILS % (AUTO) 0.2 % (0.0-5.0); EOSINOPHILS # (AUTO) 0.04 K/uL (0.00-0.70); EOSINOPHILS % (AUTO) 0.4 % (0.0-8.0); HEMATOCRIT 26.4 % (36-48); IMMATURE GRANULOCYTE ABSOLUTE 0.03 K/uL (0-1); LYMPHOCYTES # (AUTO) 1.4 K/uL (1.0-4.8); LYMPHOCYTES % (AUTO) 15.5 % (21.0-51.0); MEAN CORPUSCULAR HEMOGLOBIN 29.1 pg (27.0-33.0); MEAN CORPUSCULAR HGB CONC 30.3 g/dL (32.0-36.0); MONOCYTES # (AUTO) 0.6 K/uL (0.1-1.0); MONOCYTES % (AUTO) 6.4 % (3.0-13.0); NEUTROPHILS % (AUTO) 77.2 % (40.0-77.0); PLATELET COUNT (AUTO) 262 K/uL (130-400); RED BLOOD CELL COUNT(AUTO) 2.75 MIL/uL (4.00-5.50); RED CELL DISTRIBUTION WIDTH 17.7 % (11.0-15.5); WHITE BLOOD COUNT (AUTO) 9.1 K/uL (4.8-10.8)
[2024-10-16 06:03] LABS: CREATININE 2.2 mg/dL (0.5-1.0); POTASSIUM 3.4 mmol/L (3.5-5.1)
[2024-10-16] MEDS: INSULIN humuLIN R 100 UNIT/ML 3ML SQ SCH (06:20)
--- NOTE | 2024-10-16 06:20 | NUR ---
INSULIN PT WANTED INSULIN BY S/S BUT REFUSED SCHEDULED REGULAR INSULIN DOSE. MEDICATED PT. KEPT RESTED AND COMFORTABLE. FOR MORE CARE.
--- NOTE | 2024-10-16 08:39 | DS ---
Discharge Summary Hospital Course No acute events overnight. Patient tolerating full liquid diet well. Reports a decrease in nausea. BBS are clear. Abdomen is soft and not distended today. She is passing flatus and watery stool via colostomy. She is voiding well and has ambulated. She reports feeling better. Plan for discharge this aftenoon. Home ca re instructions with ER warnings given. Instructions on wound care for ileostomy incision given. She is to f/u at [facility] on 11/06/[address] De La Paz at 10:00am at [facility]. She verbalized understanding and agreement. LALITA LAWS NP Oct 16, 2024 08:39
[2024-10-16] MEDS ORDERED: INSULIN GLARgine 100 UNITS/ML 10 ML VIAL SQ SCH (09:00)
[2024-10-16] MEDS: metoCLOPRAmide 10 MG/2 ML VIAL IVP ONE (09:13)
[2024-10-16] MEDS: dexaMETHasone 4 MG TAB PO ONE (09:13)
[2024-10-16] MEDS: INSULIN GLARgine 100 UNITS/ML 10 ML VIAL SQ SCH (09:25)
--- NOTE | 2024-10-16 11:02 | PN ---
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 She had coli annual anastomosis perform the past, she was evaluated colorectal surgeon and offered closure of ileostomy with creation of colostomy, postop day 2. Patient was evaluated in the room, she is still continues to look weak. We will request venous blood gas, her labs reviewed, hemoglobin is downtrending. We will consult Hematology and Gastroenterology. We will continue to follow. REVIEW OF SYSTEMS CONSTITUTIONAL: Denies fevers, chills, or night sweats. No unintentional weight loss reported. NEUROLOGICAL: Denies headache, amaurosis fugax, motor weakness, sensory deficit, vertigo/spinning sensation, gait abnormalities, or tremors. ENT: No hearing loss, otalgia, otorrhea, rhinitis, rhinorrhea, hoarseness, or sore throat. CARDIOVASCULAR: Denies any exertional angina, dyspnea on exertion, orthopnea, paroxysmal nocturnal dyspnea, palpitations, life-threatening arrhythmias, claudication. PULMONARY: Denies any shortness of breath, cough, phlegm/sputum, hemoptysis, pleuritic chest pain. SLEEP: Denies morning headaches, daytime somnolence or napping. Denies difficulty falling asleep, staying asleep, waking from sleep. Denies knowledge of snoring. GASTROINTESTINAL: Denies any type of dysphagia to either liquids or solids. Denies nausea, vomiting, pyrosis, early satiety, abdominal pain, diarrhea, constipation, or changes in stool consistency or caliber. Denies coffee-ground emesis, hematemesis, hematochezia, or melanotic stools. GENITOURINARY: Denies frequency, urgency, nocturia, hematuria or incontinence (Storage/Irritative symptoms.) Low urinary stream, straining to void, urinary intermittency or hesitancy, splitting of the voiding stream, terminal dribbling. ENDOCRINOLOGIC: Denies polyuria, polydipsia, polyphagia or heat/cold intolerances. HEMATOLOGIC: Denies thrombophilia/previous clots, or coagulopathy/bleeding disorders. ONCOLOGIC: Denies personal history of malignancy. DERMATOLOGIC: Denies rashes or pruritus. PSYCHIATRIC: Denies any suicidal or homicidal ideation. Denies hallucinations. PHYSICAL EXAM GENERAL APPEARANCE: The patient is awake, alert, and oriented, in no acute cardiopulmonary distress. Patient sleeping at bedside but is able to follow conversations. Patient is obese NEUROLOGICAL: Cranial nerves II-XII grossly intact. Motor is 5/5 in bilateral upper and lower extremities proximal to distal. No sensory deficits. HEENT: Face is symmetric. Pupils are equal and reactive. Extraocular movements are intact. NECK: Supple. No JVD. No thyromegaly. No submental, submandibular, pre- /postauricular, occipital or supraclavicular lymphadenopathy. CHEST: Normal chest expansion. No Telemetry. LUNGS: Absence of any rales, rhonchi or any wheezing. CARDIOVASCULAR: Regular. S1 and S2 normal. No appreciable rubs, murmurs or gallops. ABDOMEN: Soft, nontender, and nondistended. There is no rebound, voluntary guarding, or rigidity. : Deferred. No Armijo. EXTREMITIES: Non-edematous and not cyanotic. No clubbing. Good capillary refill. SKIN: No skin breakdown. Vital Signs (last 8hr) Date Time Temp Pulse Resp B/P (MAP) Pulse Ox O2 Delivery O2 Flow Rate FiO2 10/16/24 08:00 98.6 81 18 106/64 96 Room Air 10/16/24 04:00 99.0 78 20 116/62 94 Room Air LABS: Laboratory: Test 10/16/24 05:25 10/15/24 11:39 10/15/24 05:37 10/15/24 04:54 Range/Units White Blood Count 9.1 4.8-10.8 K/uL Red Blood Count 2.75 L 4.00-5.50 MIL/uL Hemoglobin 8.0 L 12.0-16.0 g/dL Hematocrit 26.4 L 36-48 % Mean Corpuscular Volume 96.0 79-99 fL Mean Corpuscular Hemoglobin 29.1 27.0-33.0 pg Mean Corpuscular Hemoglobin Concent 30.3 L 32.0-36.0 g/dL Red Cell Distribution Width 17.7 H 11.0-15.5 % Platelet Count 262 130-400 K/uL Mean Platelet Volume 9.3 7.5-10.5 fL Immature Granulocyte % (Auto) 0.3 0-1 % Neutrophils (%) (Auto) 77.2 H 40.0-77.0 % Lymphocytes (%) (Auto) 15.5 L 21.0-51.0 % Monocytes (%) (Auto) 6.4 3.0-13.0 % Eosinophils (%) (Auto) 0.4 0.0-8.0 % Basophils (%) (Auto) 0.2 0.0-5.0 % Neutrophils # (Auto) 7.0 1.8-7.7 K/uL Lymphocytes # (Auto) 1.4 1.0-4.8 K/uL Monocytes # (Auto) 0.6 0.1-1.0 K/uL Eosinophils # (Auto) 0.04 0.00-0.70 K/uL Basophils # (Auto) 0.02 0.00-0.20 K/uL Absolute Immature Granulocyte (auto 0.03 0-1 K/uL Nucleated Red Blood Cells 0.0 0.0-0.19 % Sodium Level 141 136-145 mmol/L Potassium Level 3.4 L 3.5-5.1 mmol/L Chloride Level 112 H 101-111 mmol/L Carbon Dioxide Level 19 L 21-32 mmol/L Blood Urea Nitrogen 25 H 7-18 mg/dL Creatinine 2.2 H 0.5-1.0 mg/dL Glomerular Filtration Rate Calc 27 >90 mL/min Random Glucose 232 H 70-105 mg/dL Total Calcium 7.9 L 8.5-10.1 mg/dL Blood Gas Specimen Type Venous Arterial Blood Oxygen Saturation 95.5 94.0-98.0 % Venous Blood pH 7.306 L 7.320-7.430 Venous Blood pCO2 at Patient Temp 30 L 38-54 Venous Blood pO2 at Patient Temp 83.2 H 23.0-48.0 mmHg Venous Blood HCO3 14.4 L 22.0-29.0 Venous Blood Base Excess -10.4 L -2.0-3.0 Blood Gas Temperature 37.0 35.5-37.0 CELSIUS Blood Gas Vent Mode RA ROOM AIR FiO2 21.0 % Blood Gas Specimen Comment RAQUEL RN V Whole Blood Glucose 208 H 70-110 MG/DL Hemoglobin A1c 8.6 H 4.0-6.0 % Estimated Average Glucose (eAG) 200 H 70-126 mg/dL Test 10/14/24 20:27 Range/Units Bedside Glucose Comment Notified Nurse Current Medications Medications (Trade) Dose Ordered Sig/Chan Route PRN Reason Start Time Stop Time Status Last Admin Dose Admin Acetaminophen (TYLenol 325MG TAB) 650 mg Q4H PRN PO TEMPERATURE GREATER THAN 101 10/14/24 13:00 11/13/24 12:59 Acetaminophen/ Hydrocodone Bitart (NORco 5/325MG) 1 tab Q4H PRN PO MODERATE PAIN (4-6) 10/14/24 13:00 10/19/24 12:59 10/15/24 13:12 1 TAB Dextrose (D50w) 50 ml AD PRN IV HYPOGLYCEMIA PROTOCOL 10/14/24 17:00 11/13/24 16:59 Famotidine (Pepcid 20mg Vial) 20 mg Q24H IV 10/14/24 21:00 11/13/24 20:59 10/15/24 21:13 20 MG Glucagon (Glucagon 1mg Kit) 1 mg AD PRN IM HYPOGLYCEMIA PROTOCOL 10/14/24 17:00 11/13/24 16:59 Insulin Glargine (LANtus 100 UNITS/ML 10 ML VIAL) 14 units HS SQ 10/14/24 21:00 10/15/24 07:31 DC 10/14/24 20:59 14 UNITS Insulin Glargine (LANtus 100 UNITS/ML 10 ML VIAL) 20 units DAILY SQ 10/15/24 09:00 10/15/24 21:45 DC Insulin Glargine (LANtus 100 UNITS/ML 10 ML VIAL) 25 units DAILY SQ 10/16/24 09:00 10/16/24 06:23 DC Insulin Glargine (LANtus 100 UNITS/ML 10 ML VIAL) 35 units DAILY SQ 10/16/24 09:00 11/15/24 08:59 10/16/24 09:25 35 UNITS Insulin Human Regular (humuLIN R 100 UNIT/ML 3ML) AD PRN SQ SLIDING SCALE COVERAGE 10/14/24 13:00 10/14/24 16:43 DC Insulin Human Regular (humuLIN R 100 UNIT/ML 3ML) 5 unit TIDAC SQ 10/15/24 11:30 10/15/24 21:45 DC 10/15/24 17:23 5 UNIT Insulin Human Regular (humuLIN R 100 UNIT/ML 3ML) 8 unit TIDAC SQ 10/16/24 07:30 11/15/24 07:29 Insulin Human Regular (humuLIN R 100 UNIT/ML 3ML) INSULIN SLIDING SCAL... ACHS SQ 10/14/24 21:00 11/13/24 20:59 10/16/24 06:20 8 UNIT Morphine Sulfate (morPHINE 2MG SYG) 2 mg Q3H PRN IV MODERATE PAIN (4-6) IF NPO 10/14/24 13:00 10/21/24 12:59 Morphine Sulfate (morPHINE 4MG SYG) 4 mg Q3H PRN IV SEVERE PAIN (7-10) 10/14/24 13:00 10/21/24 12:59 10/16/24 05:11 4 MG Ondansetron HCl (zoFRAN 4MG INJ) 4 mg Q4H PRN IVP NAUSEA 10/14/24 13:00 11/13/24 12:59 Potassium Chloride/Dextrose/ Sod Cl 1,000 ml @ 75 mls/hr [id number] IV 10/14/24 13:00 10/14/24 16:43 DC Sodium Bicarbonate (Sodium Bicarbonate) 650 mg TID PO 10/15/24 14:00 11/14/24 13:59 10/16/24 09:13 650 MG Sodium Chloride 1,000 ml @ 75 mls/hr [id number] IV 10/14/24 17:00 11/13/24 16:59 10/16/24 09:25 75 MLS/HR DIAGNOSTICS / RADIOLOGY: [ ] ASSESSMENT: Metabolic acidosis, POA Ileostomy status status post robotic assisted ileostomy closure with small bowel resection and robotic creation of transverse colostomy History of CKD stage 4 Diabetes mellitus type 2 with associated hyperglycemia Hypertension Obesity BMI 37.0 Hyperlipidemia PLAN: - continue with admission and medical-surgical unit -patient continues to look acidotic, we will order stat venous blood gas -her hemoglobin is downtrending, we will continue to monitor, we will do serial CBC -we will consult GI and Hematology for anemia -continue with postoperative recommendations per surgery. -we will defer to surgery regarding pain management. -closely monitor creatinine. We will repeat labs in the morning Continue with GI and DVT prophylaxis Case was seen and examined with Dr. Elizondo, above plan was formulated. Patient was cleared by surgeon. From hospitalist standpoint, patient is not medically clear for discharge. ATTESTATION BY PHYSICIAN I have seen and examined the patient. I reviewed the documentation, medical decision making, and treatment plan as noted by the mid-level provider above. I agree with the findings and plan of care. YAS ELIZONDO MD, [facility] Oct 16, 2024 11:02
[2024-10-16 11:20] LABS: HEMATOCRIT 25.6 % (36-48); MEAN CORPUSCULAR HEMOGLOBIN 28.9 pg (27.0-33.0); MEAN CORPUSCULAR HGB CONC 30.9 g/dL (32.0-36.0); MEAN CORPUSCULAR VOLUME 93.8 fL (79-99); RED BLOOD CELL COUNT(AUTO) 2.73 MIL/uL (4.00-5.50); RED CELL DISTRIBUTION WIDTH 17.9 % (11.0-15.5); WHITE BLOOD COUNT (AUTO) 8.8 K/uL (4.8-10.8)
[2024-10-16 11:21] LABS: ABG OXYGEN SATURATION 52.6 % (94.0-98.0); BASE EXCESS,VENOUS BLOOD GAS -7.2 (-2.0-3.0); HCO3,VENOUS BLOOD GAS 18.4 (22.0-29.0); PCO2,VENOUS BLOOD GAS 38 (38-54); PH,VENOUS BLOOD GAS 7.309 (7.320-7.430); PO2,VENOUS BLOOD GAS 26.5 mmHg (23.0-48.0); VENT MODE, BG RA (ROOM AIR)
[2024-10-16] MEDS: PoTASSium chloRIDE 20MEQ/100ML 100 ML IV ONE (11:23)
[2024-10-16] MEDS: PoTASSium chloRIDE 20MEQ ER 20 MEQ ERTAB PO ONE (12:45)
--- NOTE | 2024-10-16 14:43 | CONS ---
NEPHROLOGY CONSULTATION NOTE Date/Time Patient Seen: Oct 16, 2024 [id number] Reason for Consultation: Renal failure HISTORY OF PRESENT ILLNESS: This is a 49-year-old female with past medical history of hypertension, hyperlipidemia, diabetes mellitus type 2, obesity, CKD stage 4 She presented to the hospital secondary to ileostomy status. 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 She had a colo anal anastomosis performed in the past. She was evaluated by colorectal surgeon and offered closure of ileostomy with creation of colostomy. Patient agreed to the procedure. Patient underwent robotic assisted closure of ileostomy with small bowel resection and robotic creation of transverse colostomy. She was noted with elevated BUN/creatinine. Has been consulted for renal failure. Renal function remains elevated Electrolytes are stable. She was seen in the medical floor REVIEW OF SYSTEMS: GENERAL: Negative for any nausea, vomiting, fevers, chills, or weight loss. NEUROLOGIC: Negative for any blurry vision, blind spots, double vision, facial asymmetry, dysphagia, dysarthria, hemiparesis, hemisensory deficits, vertigo, ataxia. HEENT: Negative for any head trauma, neck trauma, neck stiffness, photophobia, phonophobia, sinusitis, rhinitis. CARDIAC: Negative for any chest pain, dyspnea on exertion, paroxysmal nocturnal dyspnea, peripheral edema. PULMONARY: Negative for any shortness of breath, wheezing, COPD, or TB exposure. GASTROINTESTINAL: Negative for any abdominal pain, nausea, vomiting, bright red blood per rectum, melena. GENITOURINARY: Negative for any dysuria, hematuria, incontinence. INTEGUMENTARY: Negative for any rashes, cuts, insect bites. RHEUMATOLOGIC: Negative for any joint pains, photosensitive rashes, history of vasculitis or kidney problems. HEMATOLOGIC: Negative for any abnormal bruising, frequent infections or bleeding. PAST MEDICAL HISTORY: Hypertension, hyperlipidemia, diabetes mellitus type 2, obesity, CKD stage 4 PAST SURGICAL HISTORY: History of ileostomy, history of colo anal anastomosis PAST SOCIAL HISTORY: Denied smoking, alcohol, drug FAMILY HISTORY: Noncontributory PHYSICAL EXAM: GENERAL: Alert and oriented x 3. No acute distress. Well-nourished. EYES: EOMI. Anicteric. HENT: Moist mucous membranes. No scleral icterus. No cervical lymphadenopathy. LUNGS: Clear to auscultation bilaterally. No accessory muscle use. CARDIOVASCULAR: Regular rate and rhythm. No murmur. No JVD. ABDOMEN: Soft, non-tender and non-distended. No palpable masses. EXTREMITIES: No edema. Non-tender.?SKIN: No rashes or lesions. Warm. NEUROLOGIC: No focal neurological deficits. CN II-XII grossly intact, but not individually tested. PSYCHIATRIC: Cooperative. Appropriate mood and affect. MEDICATIONS: [ ] Current Medications Medications (Trade) Dose Ordered Sig/Chan Route PRN Reason Start Time Stop Time Status Last Admin Dose Admin Acetaminophen (TYLenol 325MG TAB) 650 mg Q4H PRN PO TEMPERATURE GREATER THAN 101 10/14/24 13:00 11/13/24 12:59 Acetaminophen/ Hydrocodone Bitart (NORco 5/325MG) 1 tab Q4H PRN PO MODERATE PAIN (4-6) 10/14/24 13:00 10/19/24 12:59 10/16/24 12:59 1 TAB Dextrose (D50w) 50 ml AD PRN IV HYPOGLYCEMIA PROTOCOL 10/14/24 17:00 11/13/24 16:59 Famotidine (Pepcid 20mg Vial) 20 mg Q24H IV 10/14/24 21:00 11/13/24 20:59 10/15/24 21:13 20 MG Glucagon (Glucagon 1mg Kit) 1 mg AD PRN IM HYPOGLYCEMIA PROTOCOL 10/14/24 17:00 11/13/24 16:59 Insulin Glargine (LANtus 100 UNITS/ML 10 ML VIAL) 14 units HS SQ 10/14/24 21:00 10/15/24 07:31 DC 10/14/24 20:59 14 UNITS Insulin Glargine (LANtus 100 UNITS/ML 10 ML VIAL) 20 units DAILY SQ 10/15/24 09:00 10/15/24 21:45 DC Insulin Glargine (LANtus 100 UNITS/ML 10 ML VIAL) 25 units DAILY SQ 10/16/24 09:00 10/16/24 06:23 DC Insulin Glargine (LANtus 100 UNITS/ML 10 ML VIAL) 35 units DAILY SQ 10/16/24 09:00 11/15/24 08:59 10/16/24 09:25 35 UNITS Insulin Human Regular (humuLIN R 100 UNIT/ML 3ML) AD PRN SQ SLIDING SCALE COVERAGE 10/14/24 13:00 10/14/24 16:43 DC Insulin Human Regular (humuLIN R 100 UNIT/ML 3ML) 5 unit TIDAC SQ 10/15/24 11:30 10/15/24 21:45 DC 10/15/24 17:23 5 UNIT Insulin Human Regular (humuLIN R 100 UNIT/ML 3ML) 8 unit TIDAC SQ 10/16/24 07:30 11/15/24 07:29 10/16/24 12:54 8 UNIT Insulin Human Regular (humuLIN R 100 UNIT/ML 3ML) INSULIN SLIDING SCAL... ACHS SQ 10/14/24 21:00 11/13/24 20:59 10/16/24 12:45 14 UNIT Morphine Sulfate (morPHINE 2MG SYG) 2 mg Q3H PRN IV MODERATE PAIN (4-6) IF NPO 10/14/24 13:00 10/21/24 12:59 Morphine Sulfate (morPHINE 4MG SYG) 4 mg Q3H PRN IV SEVERE PAIN (7-10) 10/14/24 13:00 10/21/24 12:59 10/16/24 05:11 4 MG Ondansetron HCl (zoFRAN 4MG INJ) 4 mg Q4H PRN IVP NAUSEA 10/14/24 13:00 11/13/24 12:59 Potassium Chloride/Dextrose/ Sod Cl 1,000 ml @ 75 mls/hr [id number] IV 10/14/24 13:00 10/14/24 16:43 DC Sodium Bicarbonate (Sodium Bicarbonate) 650 mg TID PO 10/15/24 14:00 11/14/24 13:59 10/16/24 09:13 650 MG Sodium Chloride 1,000 ml @ 75 mls/hr [id number] IV 10/14/24 17:00 11/13/24 16:59 10/16/24 09:25 75 MLS/HR Vital Signs (last 8hr) Date Time Temp Pulse Resp B/P (MAP) Pulse Ox O2 Delivery O2 Flow Rate FiO2 10/16/24 08:00 98.6 81 18 106/64 96 Room Air DIAGNOSTICS / RADIOLOGY: LABORATORY: [ ] Hematology Labs: Test 10/16/24 11:10 10/16/24 05:25 Range/Units White Blood Count 8.8 4.8-10.8 K/uL Red Blood Count 2.73 L 4.00-5.50 MIL/uL Hemoglobin 7.9 L 12.0-16.0 g/dL Hematocrit 25.6 L 36-48 % Mean Corpuscular Volume 93.8 79-99 fL Mean Corpuscular Hemoglobin 28.9 27.0-33.0 pg Mean Corpuscular Hemoglobin Concent 30.9 L 32.0-36.0 g/dL Red Cell Distribution Width 17.9 H 11.0-15.5 % Platelet Count 251 130-400 K/uL Mean Platelet Volume 9.2 7.5-10.5 fL Nucleated Red Blood Cells 0.0 0.0-0.19 % Immature Granulocyte % (Auto) 0.3 0-1 % Neutrophils (%) (Auto) 77.2 H 40.0-77.0 % Lymphocytes (%) (Auto) 15.5 L 21.0-51.0 % Monocytes (%) (Auto) 6.4 3.0-13.0 % Eosinophils (%) (Auto) 0.4 0.0-8.0 % Basophils (%) (Auto) 0.2 0.0-5.0 % Neutrophils # (Auto) 7.0 1.8-7.7 K/uL Lymphocytes # (Auto) 1.4 1.0-4.8 K/uL Monocytes # (Auto) 0.6 0.1-1.0 K/uL Eosinophils # (Auto) 0.04 0.00-0.70 K/uL Basophils # (Auto) 0.02 0.00-0.20 K/uL Absolute Immature Granulocyte (auto 0.03 0-1 K/uL Chemistry Labs: Test 10/16/24 11:10 10/16/24 05:25 10/15/24 05:37 10/15/24 04:54 Range/Units Magnesium Level 1.90 1.80-2.40 mg/dL Sodium Level 141 136-145 mmol/L Potassium Level 3.4 L 3.5-5.1 mmol/L Chloride Level 112 H 101-111 mmol/L Carbon Dioxide Level 19 L 21-32 mmol/L Blood Urea Nitrogen 25 H 7-18 mg/dL Creatinine 2.2 H 0.5-1.0 mg/dL Glomerular Filtration Rate Calc 27 >90 mL/min Random Glucose 232 H 70-105 mg/dL Total Calcium 7.9 L 8.5-10.1 mg/dL Whole Blood Glucose 208 H 70-110 MG/DL Hemoglobin A1c 8.6 H 4.0-6.0 % Estimated Average Glucose (eAG) 200 H 70-126 mg/dL Test 10/14/24 20:27 Range/Units Bedside Glucose Comment Notified Nurse ASSESSMENT: Renal failure Metabolic acidosis Ileostomy status status post robotic assisted ileostomy closure with small bowel resection and robotic creation of transverse colostomy Diabetes mellitus type 2 Hypertension Obesity BMI 37.0 Hyperlipidemia PLAN: Labs, diagnostic, radiologic exams reviewed and interpreted by myself and supervising physician. We have reviewed external records in detail Obtain UA, urine electrolytes, urine creatinine, urine osmolality and complete renal ultrasound Start Nephro-Ramana daily Require close monitoring of renal function and electrolytes Order CBC, CMP, uric acid, TSH, complete iron panel, ferritin and electrolytes in am Continue with antibiotics Renal diabetic diet BiPAP as necessary, for respiratory distress IV pressors as needed Monitor blood pressure adjust medication doses as needed Avoid hypotensive episodes May use Dilaudid 0.5 mg IV every 6 hours as needed for severe pain Monitor blood sugars Strict intake, output, and daily weight should be monitored Please renally adjust medications Avoid nephrotoxic and nonsteroidal drugs Avoid contrast if possible Will continue to monitor renal function, anemia, electrolytes Treatment plan discussed with patient Questions were answered We have discussed with the other team physicians in detail about the care plan We will continue to monitor the patient closely Thank you for allowing us to participate in the care of this patient ATTESTATION BY PHYSICIAN I have seen and examined the patient. I reviewed the documentation, medical decision making, and treatment plan as noted by the mid-level provider above. I agree with the findings and plan of care. JOYCE SANTOS MD, [facility] Oct 16, 2024 14:43
--- NOTE | 2024-10-16 14:48 | HMCIMG ---
US RENAL SONOGRAM HISTORY: Renal failure COMPARISON: None TECHNIQUE: Renal and bladder ultrasound study was performed. FINDINGS: The right kidney measures 9.5 x 4.4 x 4.2 cm. The left kidney measures 8 x 4 x 5.1 cm. There is left renal pelvis fullness. No evidence of hydronephrosis is seen of either kidney. Both kidneys are seen. Bladder is moderately distended. Bladder wall measures 5 mm. Prevoid bladder volume is 702 cc. IMPRESSION: 1. No hydronephrosis is seen. Left renal pelvis fullness is seen.
[2024-10-16] MEDS: SODIUM BICARB 50MEQ 50ML VIAL IV ONE (14:50)
--- NOTE | 2024-10-16 17:07 | NUR ---
note dressing change preformed at this time, pt tolerated dressing change, 2 inches of packing removed, covered by 4x4 and tapped down
[2024-10-16 20:19] LABS: HEMATOCRIT 25.7 % (36-48); MEAN CORPUSCULAR HEMOGLOBIN 28.7 pg (27.0-33.0); MEAN CORPUSCULAR HGB CONC 30.4 g/dL (32.0-36.0); MEAN CORPUSCULAR VOLUME 94.5 fL (79-99); PLATELET COUNT (AUTO) 267 K/uL (130-400); RED BLOOD CELL COUNT(AUTO) 2.72 MIL/uL (4.00-5.50); RED CELL DISTRIBUTION WIDTH 17.4 % (11.0-15.5); WHITE BLOOD COUNT (AUTO) 8.3 K/uL (4.8-10.8)
[2024-10-16 20:52] LABS: APPEARANCE,URINE CLEAR (CLEAR); BILIRUBIN,URINE NEGATIVE (NEGATIVE); COLOR,URINE LIGHT-YELLOW (YELLOW); GLUCOSE, URINE (UA) 150 mg/dL (NEGATIVE); KETONES,URINE NEGATIVE (NEGATIVE); LEUKOCYTE ESTERASE ,URINE 75 Leu/uL (NEGATIVE); NITRATE,URINE NEGATIVE (NEGATIVE); PH,URINE 5.5 (5.0-8.0); PROTEIN,URINE 30 mg/dL (NEGATIVE); UROBILINOGEN,URINE 0.2 mg/dL (0.2-1.0)
[2024-10-16 20:55] LABS: ADD UA MICROSCOPIC YES
[2024-10-16 20:56] LABS: BACTERIA,URINE RARE /HPF (None Seen); CHLORIDE,URINE RANDOM 136 mmol/L (110-250); CREATININE,URINE RANDOM 61.63 mg/dL (30-135); MUCUS,URINE RARE LPF (None Seen); POTASSIUM,URINE RANDOM 17 mmol/L (25-125); SODIUM,URINE RANDOM 98 mmol/l (40-220); SQUAMOUS EPITHELIAL CELL,UR RARE /HPF (0-2); UNCLASSIFIED CRYSTAL 1 /HPF (None Seen)
--- NOTE | 2024-10-16 21:00 | NUR ---
MEDS SHIFT ASSESSMENT DONE, PLEASE REFER TO CHART. DUE MEDS ADMINISTERED, TOLERATED WELL. KEPT RESTED AND COMFORTABLE IN BED. CALL LIGHT WITHIN REACH.
--- NOTE | 2024-10-16 21:09 | CONS ---
HISTORY OF PRESENT ILLNESS: This is a 49-year-old female patient with history of rectal carcinoma, status post neoadjuvant chemotherapy followed by anterior resection on 2019, followed by concurrent chemoradiation therapy. This is a 49-year-old female patient with history of rectal carcinoma diagnosed in 2019. She is status post concurrent chemoradiation therapy followed by surgery. She had developed rectovaginal fistula, requiring to have ileostomy. She had a graft surgery with correction, but developed perforation later. She now has underwent a colostomy, has intermittent rectal bleeding after she was placed on Eliquis due to lower extremity deep venous thrombosis. She also had episodes of UTI and sepsis, requiring to be on dialysis last year. At this point, she does not have any evidence of bleeding. She continues to be off Eliquis after the surgery. PHYSICAL EXAMINATION: VITAL SIGNS: Stable, afebrile. GENERAL: The patient is alert, in no acute distress. HEART: Regular and rhythmic. LUNGS: With diminished breathing sounds in both bases. No crackles. ABDOMEN: Soft, distended with a colostomy bag in place. EXTREMITIES: Mild pedal edema at the ankles bilaterally. LABORATORY DATA: WBC 8.8, hemoglobin 7.9, platelet count 251, MCV 93. Sodium 141, potassium 3.4, BUN 25, creatinine 2.2. ASSESSMENT: * History of rectal carcinoma. * Status post diverting colostomy. * History of vaginal, rectal fistula. * History of gastric bypass surgery. * Chronic renal disease. PLAN: The patient presents with significant anemia secondary to surgical procedure and chronic renal disease. I will give a dose of Ferrlecit IV daily for 3 days. Continue to monitor for any active bleeding. Continue to hold Eliquis until cleared by surgery. Continue to monitor with lab work daily. TID: [id number] RECEIPT: [id number]
--- NOTE | 2024-10-16 21:54 | PN ---
endocrinology progress note Date of Service: Oct 16, 2024 , subjective: glucose are elevated, so insulin adjusted. patient has dm-2 for many years and use toujeo 10 units daily, humalog 30 units bid and afrezza insulin 20 units before lunch. hba1c 8.6% and she follows for dm-2 with endocrinology in [place]. REVIEW OF SYSTEMS CONSTITUTIONAL: Denies fevers, chills, or night sweats. No unintentional weight loss reported. NEUROLOGICAL: Denies headache, amaurosis fugax, motor weakness, sensory deficit, vertigo/spinning sensation, gait abnormalities, or tremors. ENT: No hearing loss, otalgia, otorrhea, rhinitis, rhinorrhea, hoarseness, or sore throat. CARDIOVASCULAR: Denies any exertional angina, dyspnea on exertion, orthopnea, paroxysmal nocturnal dyspnea, palpitations, life-threatening arrhythmias, claudication. PULMONARY: Denies any shortness of breath, cough, phlegm/sputum, hemoptysis, pleuritic chest pain. SLEEP: Denies morning headaches, daytime somnolence or napping. Denies difficulty falling asleep, staying asleep, waking from sleep. Denies knowledge of snoring. GASTROINTESTINAL: Denies any type of dysphagia to either liquids or solids. Denies nausea, vomiting, pyrosis, early satiety, abdominal pain, diarrhea, constipation, or changes in stool consistency or caliber. Denies coffee-ground emesis, hematemesis, hematochezia, or melanotic stools. GENITOURINARY: Denies frequency, urgency, nocturia, hematuria or incontinence (Storage/Irritative symptoms.) Low urinary stream, straining to void, urinary intermittency or hesitancy, splitting of the voiding stream, terminal dribbling. ENDOCRINOLOGIC: Denies polyuria, polydipsia, polyphagia or heat/cold intolerances. HEMATOLOGIC: Denies thrombophilia/previous clots, or coagulopathy/bleeding disorders. ONCOLOGIC: Denies personal history of malignancy. DERMATOLOGIC: Denies rashes or pruritus. PSYCHIATRIC: Denies any suicidal or homicidal ideation. Denies hallucinations. PAST MEDICAL HISTORY: Hypertension, hyperlipidemia, diabetes mellitus type 2, obesity, CKD stage 4 PAST SURGICAL HISTORY: History of ileostomy, history of colo anal anastomosis PAST SOCIAL HISTORY: Denied smoking, alcohol, drug FAMILY HISTORY: Denied any pertinent family history Coded Allergies: Penicillins (Unverified Allergy, Unknown, hives, 06/30/24) ASSESSMENT: Diabetes mellitus type 2 with associated hyperglycemia patient has dm-2 for many years and use toujeo 10 units daily, humalog 30 units bid and afrezza insulin 20 units before lunch. hba1c 8.6% and she follows for dm-2 with endocrinology in [place]. glucose are elevated, so insulin adjusted. Ileostomy status status post robotic assisted ileostomy closure with small bowel resection and robotic creation of transverse colostomy History of CKD stage 4 Hypertension Obesity BMI 37.0 Hyperlipidemia PLAN: - increase lantus to 35 units tid before meals -increase regular insulin to 14 units qac before meals continue medium dose ssi check glucose q x 6 hourly follows with endocrinology in [place] Vitals/Labs Vital Signs Date Time Temp Pulse Resp B/P (MAP) Pulse Ox O2 Delivery O2 Flow Rate FiO2 10/16/24 20:00 98.2 61 20 107/56 97 Room Air 10/16/24 08:00 0 21 Laboratory Tests 10/16/24 05:25 10/16/24 11:10 10/16/24 20:15 Medications Current Medications Ertapenem 50 ml @ 100 mls/hr ONCE ONCE IV; Start 10/14/24 at 06:30; Stop 10/14/24 at 06:59; Status DC Lidocaine HCl 100 mg STK-MED ONCE .ROUTE; Start 10/14/24 at 06:47; Stop 10/14/24 at 06:47; Status DC Propofol 200 mg STK-MED ONCE IV; Start 10/14/24 at 06:47; Stop 10/14/24 at 06:47; Status DC Midazolam HCl 2 mg STK-MED ONCE .ROUTE; Start 10/14/24 at 06:48; Stop 10/14/24 at 06:48; Status DC Rocuronium [place] 50 mg STK-MED ONCE .ROUTE; Start 10/14/24 at 06:48; Stop 10/14/24 at 06:48; Status DC Fentanyl Citrate 100 mcg STK-MED ONCE .ROUTE; Start 10/14/24 at 06:48; Stop 10/14/24 at 06:48; Status DC Sodium Chloride 1,000 ml @ As Directed STK-MED ONCE IV Last administered on 10/14/24at 09:00; Start 10/14/24 at 06:53; Stop 10/14/24 at 06:53; Status DC Dexmedetomidine HCl 200 mcg STK-MED ONCE IV; Start 10/14/24 at 07:11; Stop 10/14/24 at 07:12; Status DC Ketamine HCl 500 mg STK-MED ONCE IJ; Start 10/14/24 at 07:12; Stop 10/14/24 at 07:12; Status DC Scopolamine HBr 1 patch STK-MED ONCE TD; Start 10/14/24 at 07:19; Stop 10/14/24 at 07:19; Status DC Acetaminophen 100 ml @ As Directed STK-MED ONCE .ROUTE; Start 10/14/24 at 07:19; Stop 10/14/24 at 07:20; Status DC Lidocaine/ Epinephrine 20 ml STK-MED ONCE .ROUTE Last administered on 10/14/24at 09:08; Start 10/14/24 at 07:29; Stop 10/14/24 at 07:29; Status DC Bupivacaine HCl 5 mg STK-MED ONCE .ROUTE Last administered on 10/14/24at 09:08; Start 10/14/24 at 07:30; Stop 10/14/24 at 07:30; Status DC Phenylephrine HCl 10 mg STK-MED ONCE IV; Start 10/14/24 at 08:36; Stop 10/14/24 at 08:37; Status DC Dexamethasone Sodium Phosphate 10 mg STK-MED ONCE .ROUTE; Start 10/14/24 at 08:50; Stop 10/14/24 at 08:50; Status DC Ondansetron HCl 4 mg STK-MED ONCE .ROUTE; Start 10/14/24 at 08:50; Stop 10/14/24 at 08:51; Status DC Diphenhydramine HCl 50 mg STK-MED ONCE .ROUTE; Start 10/14/24 at 08:52; Stop 10/14/24 at 08:53; Status DC Ketorolac Tromethamine 30 mg STK-MED ONCE .ROUTE; Start 10/14/24 at 08:52; Stop 10/14/24 at 08:53; Status DC Rocuronium [place] 50 mg STK-MED ONCE .ROUTE; Start 10/14/24 at 09:05; Stop 10/14/24 at 09:05; Status DC Ephedrine Sulfate 50 mg STK-MED ONCE .ROUTE; Start 10/14/24 at 09:12; Stop 10/14/24 at 09:12; Status DC Indocyanine Green 25 mg STK-MED ONCE IJ; Start 10/14/24 at 09:19; Stop 10/14/24 at 09:20; Status DC Phenylephrine HCl 10 mg STK-MED ONCE IV; Start 10/14/24 at 09:36; Stop 10/14/24 at 09:37; Status DC Phenylephrine HCl 10 mg STK-MED ONCE IV; Start 10/14/24 at 09:38; Stop 10/14/24 at 09:38; Status DC Fentanyl Citrate 100 mcg STK-MED ONCE .ROUTE; Start 10/14/24 at 11:02; Stop 10/14/24 at 11:03; Status DC Glycopyrrolate 1 mg STK-MED ONCE .ROUTE; Start 10/14/24 at 11:47; Stop 10/14/24 at 11:48; Status DC Neostigmine Methylsulfate 10 mg STK-MED ONCE IV; Start 10/14/24 at 11:48; Stop 10/14/24 at 11:48; Status DC Insulin Human Regular 300 unit STK-MED ONCE .ROUTE Last administered on 10/14/24at 12:30; Start 10/14/24 at 12:25; Stop 10/14/24 at 12:25; Status DC Meperidine HCl 25 mg STK-MED ONCE .ROUTE Last administered on 10/14/24at 12:38; Start 10/14/24 at 12:35; Stop 10/14/24 at 12:35; Status DC Acetaminophen/ Hydrocodone Bitart 1 tab Q4H PRN PO Last administered on 10/16/24at 12:59; Start 10/14/24 at 13:00; Stop 10/19/24 at 12:59 Morphine Sulfate 2 mg Q3H PRN IV; Start 10/14/24 at 13:00; Stop 10/21/24 at 12:59 Morphine Sulfate 4 mg Q3H PRN IV Last administered on 10/16/24at 05:11; Start 10/14/24 at 13:00; Stop 10/21/24 at 12:59 Ondansetron HCl 4 mg Q4H PRN IVP; Start 10/14/24 at 13:00; Stop 11/13/24 at 12:59 Acetaminophen 650 mg Q4H PRN PO; Start 10/14/24 at 13:00; Stop 11/13/24 at 12:59 Famotidine 20 mg Q24H IV Last administered on 10/16/24at 20:56; Start 10/14/24 at 21:00; Stop 11/13/24 at 20:59 Insulin Human Regular AD PRN SQ; Start 10/14/24 at 13:00; Stop 10/14/24 at 16:43; Status DC Potassium Chloride/Dextrose/ Sod Cl 1,000 ml @ 75 mls/hr [id number] IV; Start 10/14/24 at 13:00; Stop 10/14/24 at 16:43; Status DC Sodium Chloride 1,000 ml @ 75 mls/hr [id number] IV Last administered on 10/16/24at 09:25; Start 10/14/24 at 17:00; Stop 11/13/24 at 16:59 Insulin Glargine 14 units HS SQ Last administered on 10/14/24at 20:59; Start 10/14/24 at 21:00; Stop 10/15/24 at 07:31; Status DC Insulin Human Regular INSULIN SLIDING SCAL... ACHS SQ Last administered on 10/16/24at 20:57; Start 10/14/24 at 21:00; Stop 11/13/24 at 20:59 Dextrose 50 ml AD PRN IV; Start 10/14/24 at 17:00; Stop 11/13/24 at 16:59 Glucagon 1 mg AD PRN IM; Start 10/14/24 at 17:00; Stop 11/13/24 at 16:59 Insulin Glargine 20 units DAILY SQ; Start 10/15/24 at 09:00; Stop 10/15/24 at 21:45; Status DC Insulin Human Regular 5 unit TIDAC SQ Last administered on 10/15/24at 17:23; Start 10/15/24 at 11:30; Stop 10/15/24 at 21:45; Status DC Sodium Bicarbonate 50 meq ONCE ONCE IV; Start 10/15/24 at 12:00; Stop 10/15/24 at 12:04; Status DC Sodium Bicarbonate 650 mg TID PO Last administered on 10/16/24at 20:56; Start 10/15/24 at 14:00; Stop 11/14/24 at 13:59 Insulin Glargine 25 units DAILY SQ; Start 10/16/24 at 09:00; Stop 10/16/24 at 06:23; Status DC Insulin Human Regular 8 unit TIDAC SQ Last administered on 10/16/24at 17:49; Start 10/16/24 at 07:30; Stop 11/15/24 at 07:29 Insulin Glargine 35 units DAILY SQ Last administered on 10/16/24at 09:25; Start 10/16/24 at 09:00; Stop 11/15/24 at 08:59 Metoclopramide HCl 10 mg ONCE ONCE IVP Last administered on 10/16/24at 09:13; Start 10/16/24 at 09:00; Stop 10/16/24 at 09:01; Status DC Dexamethasone 8 mg ONCE ONCE PO Last administered on 10/16/24at 09:13; Start 10/16/24 at 09:00; Stop 10/16/24 at 09:01; Status DC Potassium Chloride 100 ml @ 50 mls/hr ONCE ONCE IV Last administered on 10/16/24at 11:23; Start 10/16/24 at 11:00; Stop 10/16/24 at 12:59; Status DC Potassium Chloride 40 meq ONCE ONCE PO; Start 10/16/24 at 13:00; Stop 10/16/24 at 13:01; Status DC Sodium Bicarbonate 50 meq ONCE ONCE IV Last administered on 10/16/24at 14:50; Start 10/16/24 at 13:00; Stop 10/16/24 at 13:01; Status DC Ferric Sodium Gluconate Complex 125 mg/Sodium Chloride 110 ml @ 110 mls/hr DAILY IV; Start 10/17/24 at 09:00; Stop 10/19/24 at 20:00 RUBIO FARRIS MD Oct 16, 2024 21:54
[2024-10-17 04:00] VITALS: BP 95/56; PULSE 61; RESP 16; TEMP 98.1
[2024-10-17 04:36] LABS: BASOPHILS # (AUTO) 0.01 K/uL (0.00-0.20); BASOPHILS % (AUTO) 0.1 % (0.0-5.0); EOSINOPHILS # (AUTO) 0.01 K/uL (0.00-0.70); EOSINOPHILS % (AUTO) 0.1 % (0.0-8.0); HEMATOCRIT 26.3 % (36-48); IMMATURE GRANULOCYTE ABSOLUTE 0.05 K/uL (0-1); LYMPHOCYTES # (AUTO) 1.4 K/uL (1.0-4.8); LYMPHOCYTES % (AUTO) 14.7 % (21.0-51.0); MEAN CORPUSCULAR HEMOGLOBIN 28.5 pg (27.0-33.0); MEAN CORPUSCULAR VOLUME 94.9 fL (79-99); MONOCYTES # (AUTO) 0.5 K/uL (0.1-1.0); MONOCYTES % (AUTO) 5.3 % (3.0-13.0); NEUTROPHILS # (AUTO) 7.5 K/uL (1.8-7.7); NEUTROPHILS % (AUTO) 79.3 % (40.0-77.0); PLATELET COUNT (AUTO) 274 K/uL (130-400); RED BLOOD CELL COUNT(AUTO) 2.77 MIL/uL (4.00-5.50); RED CELL DISTRIBUTION WIDTH 17.2 % (11.0-15.5); WHITE BLOOD COUNT (AUTO) 9.5 K/uL (4.8-10.8)
[2024-10-17 04:55] LABS: % IRON SATURATION 5.9 % (22-44)
[2024-10-17 05:03] LABS: ALBUMIN 2.6 g/dL (3.5-5.0); BILIRUBIN,TOTAL 0.4 mg/dL (0.2-1.0); CREATININE 1.9 mg/dL (0.5-1.0); MAGNESIUM 1.8 mg/dL (1.80-2.40); PHOSPHORUS 2.3 mg/dL (2.5-4.9); POTASSIUM 3.3 mmol/L (3.5-5.1); THYROID STIMULATING HORMONE 1.19 uIU/mL (0.36-3.74); TOTAL PROTEIN, SERUM 7.2 g/dL (6.0-8.3); URIC ACID 4.7 mg/dL (2.6-7.2)
[2024-10-17] MEDS: INSULIN humuLIN R 100 UNIT/ML 3ML SQ SCH ×2 (06:12→19:51)
--- NOTE | 2024-10-17 06:12 | NUR ---
REFUSED PT'S BLOOD SUGAR BY PT'S [id number]. PT REFUSED SCHEDULED INSULIN DOSE AT THIS TIME. NO DISTRESS NOTED. NO CONCERNS VERBALIZED. KEPT RESTED. FOR MORE CARE.
[2024-10-17 08:00] VITALS: BP 98/53; PULSE 60; RESP 18; TEMP 98.2; O2SAT 97
[2024-10-17] MEDS: SOD FERRIC GLUC COMPLEX/SUC 125 MG in 0.9%NACL 100ML 100 ML IV SCH (08:35)
[2024-10-17] MEDS: PoTASSium chloRIDE 20MEQ ER 20 MEQ ERTAB PO ONE (10:47)
[2024-10-17 10:55] LABS: ABG OXYGEN SATURATION 50.7 % (94.0-98.0); BASE EXCESS,VENOUS BLOOD GAS -4.6 (-2.0-3.0); DEVICE COMMENT RARM JESUS; HCO3,VENOUS BLOOD GAS 20.8 (22.0-29.0); PCO2,VENOUS BLOOD GAS 40 (38-54); PH,VENOUS BLOOD GAS 7.337 (7.320-7.430); PO2,VENOUS BLOOD GAS 27.5 mmHg (23.0-48.0); VENT MODE, BG RA (ROOM AIR)
--- NOTE | 2024-10-17 11:56 | PN ---
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 She had coli annual anastomosis perform the past, she was evaluated colorectal surgeon and offered closure of ileostomy with creation of colostomy, postop day 3. Patient stated that she feels a lot better but due to her anemia, section housekeeper recommended Ferrlicit IV x3 days, she received, 1 out of 3. Patient stated that she has chronic acidosis she takes sodium bicarb twice a day at home she is being managed by a fiber heel piece shaper Dr. Najera in [place]. REVIEW OF SYSTEMS CONSTITUTIONAL: Denies fevers, chills, or night sweats. No unintentional weight loss reported. NEUROLOGICAL: Denies headache, amaurosis fugax, motor weakness, sensory deficit, vertigo/spinning sensation, gait abnormalities, or tremors. ENT: No hearing loss, otalgia, otorrhea, rhinitis, rhinorrhea, hoarseness, or sore throat. CARDIOVASCULAR: Denies any exertional angina, dyspnea on exertion, orthopnea, paroxysmal nocturnal dyspnea, palpitations, life-threatening arrhythmias, claudication. PULMONARY: Denies any shortness of breath, cough, phlegm/sputum, hemoptysis, pleuritic chest pain. SLEEP: Denies morning headaches, daytime somnolence or napping. Denies difficulty falling asleep, staying asleep, waking from sleep. Denies knowledge of snoring. GASTROINTESTINAL: Denies any type of dysphagia to either liquids or solids. Denies nausea, vomiting, pyrosis, early satiety, abdominal pain, diarrhea, constipation, or changes in stool consistency or caliber. Denies coffee-ground emesis, hematemesis, hematochezia, or melanotic stools. GENITOURINARY: Denies frequency, urgency, nocturia, hematuria or incontinence (Storage/Irritative symptoms.) Low urinary stream, straining to void, urinary intermittency or hesitancy, splitting of the voiding stream, terminal dribbling. ENDOCRINOLOGIC: Denies polyuria, polydipsia, polyphagia or heat/cold intolerances. HEMATOLOGIC: Denies thrombophilia/previous clots, or coagulopathy/bleeding disorders. ONCOLOGIC: Denies personal history of malignancy. DERMATOLOGIC: Denies rashes or pruritus. PSYCHIATRIC: Denies any suicidal or homicidal ideation. Denies hallucinations. PHYSICAL EXAM GENERAL APPEARANCE: The patient is awake, alert, and oriented, in no acute c ardiopulmonary distress. Patient sleeping at bedside but is able to follow conversations. Patient is obese NEUROLOGICAL: Cranial nerves II-XII grossly intact. Motor is 5/5 in bilateral upper and lower extremities proximal to distal. No sensory deficits. HEENT: Face is symmetric. Pupils are equal and reactive. Extraocular movements are intact. NECK: Supple. No JVD. No thyromegaly. No submental, submandibular, pre- /postauricular, occipital or supraclavicular lymphadenopathy. CHEST: Normal chest expansion. No Telemetry. LUNGS: Absence of any rales, rhonchi or any wheezing. CARDIOVASCULAR: Regular. S1 and S2 normal. No appreciable rubs, murmurs or gallops. ABDOMEN: Soft, nontender, and nondistended. There is no rebound, voluntary guarding, or rigidity. : Deferred. No Armijo. EXTREMITIES: Non-edematous and not cyanotic. No clubbing. Good capillary refill. SKIN: No skin breakdown. Vital Signs (last 8hr) Date Time Temp Pulse Resp B/P (MAP) Pulse Ox O2 Delivery O2 Flow Rate FiO2 10/17/24 08:00 98.2 60 18 98/53 97 Room Air 10/17/24 04:00 98.1 61 16 95/56 95 Room Air LABS: Laboratory: Test 10/17/24 10:54 10/17/24 00:40 10/16/24 20:39 10/16/24 20:15 Range/Units Blood Gas Specimen Type Venous Arterial Blood Oxygen Saturation 50.7 L 94.0-98.0 % Venous Blood pH 7.337 7.320-7.430 Venous Blood pCO2 at Patient Temp 40 38-54 Venous Blood pO2 at Patient Temp 27.5 23.0-48.0 mmHg Venous Blood HCO3 20.8 L 22.0-29.0 Venous Blood Base Excess -4.6 L -2.0-3.0 Venous Blood Total Hemoglobin 9.1 L 12.0-16.0 Sodium (Blood Gas) 139 136-145 MMOL/L Bedside Potassium (Blood Gas) 3.3 L 3.4-4.5 MMOL/L Bedside Chloride (Blood Gas) 112 H 98-107 MMOL/L Bedside Glucose (Blood Gas) 153 H 65-95 MG/DL Bedside Ionized Calcium (Blood Gas) 1.18 1.15-1.33 MMOL/L Bedside Lactic Acid (Blood Gas) 1.67 H 0.36-0.75 MMOL/L Blood Gas Temperature 37.0 35.5-37.0 CELSIUS Blood Gas Vent Mode RA ROOM AIR FiO2 21.0 % Blood Gas Specimen Comment CHEN ROMERO White Blood Count 9.5 4.8-10.8 K/uL Red Blood Count 2.77 L 4.00-5.50 MIL/uL Hemoglobin 7.9 L 12.0-16.0 g/dL Hematocrit 26.3 L 36-48 % Mean Corpuscular Volume 94.9 79-99 fL Mean Corpuscular Hemoglobin 28.5 27.0-33.0 pg Mean Corpuscular Hemoglobin Concent 30.0 L 32.0-36.0 g/dL Red Cell Distribution Width 17.2 H 11.0-15.5 % Platelet Count 274 130-400 K/uL Mean Platelet Volume 9.0 7.5-10.5 fL Immature Granulocyte % (Auto) 0.5 0-1 % Neutrophils (%) (Auto) 79.3 H 40.0-77.0 % Lymphocytes (%) (Auto) 14.7 L 21.0-51.0 % Monocytes (%) (Auto) 5.3 3.0-13.0 % Eosinophils (%) (Auto) 0.1 0.0-8.0 % Basophils (%) (Auto) 0.1 0.0-5.0 % Neutrophils # (Auto) 7.5 1.8-7.7 K/uL Lymphocytes # (Auto) 1.4 1.0-4.8 K/uL Monocytes # (Auto) 0.5 0.1-1.0 K/uL Eosinophils # (Auto) 0.01 0.00-0.70 K/uL Basophils # (Auto) 0.01 0.00-0.20 K/uL Absolute Immature Granulocyte (auto 0.05 0-1 K/uL Nucleated Red Blood Cells 0.0 0.0-0.19 % Sodium Level 142 136-145 mmol/L Potassium Level 3.3 L 3.5-5.1 mmol/L Chloride Level 112 H 101-111 mmol/L Carbon Dioxide Level 22 21-32 mmol/L Blood Urea Nitrogen 25 H 7-18 mg/dL Creatinine 1.9 H 0.5-1.0 mg/dL Glomerular Filtration Rate Calc 32 >90 mL/min Random Glucose 99 # 70-105 mg/dL Uric Acid 4.7 2.6-7.2 mg/dL Total Calcium 8.6 8.5-10.1 mg/dL Phosphorus Level 2.3 L 2.5-4.9 mg/dL Magnesium Level 1.80 1.80-2.40 mg/dL Iron Level 18 L 50-170 mcg/dL Total Iron Binding Capacity 305 250-450 mcg/dL Percent Iron Saturation 5.9 L 22-44 % Ferritin 80 15-150 ng/mL Total Bilirubin 0.4 0.2-1.0 mg/dL Aspartate Amino Transf (AST/SGOT) 17 10-37 U/L Alanine Aminotransferase (ALT/SGPT) 20 12-78 U/L Alkaline Phosphatase 79 50-136 U/L Total Protein 7.2 6.0-8.3 g/dL Albumin 2.6 L 3.5-5.0 g/dL Thyroid Stimulating Hormone (TSH) 1.19 0.36-3.74 uIU/mL Urine Color LIGHT-YELLOW YELLOW Urine Appearance CLEAR CLEAR Urine pH 5.5 5.0-8.0 Urine Specific [place] 1.012 1.001-1.031 Urine Protein 30 H NEGATIVE mg/dL Urine Glucose (UA) 150 H NEGATIVE mg/dL Urine Ketones NEGATIVE NEGATIVE mg/dL Urine Occult Blood +- (TRACE) H NEGATIVE Urine Nitrate NEGATIVE NEGATIVE Urine Bilirubin NEGATIVE NEGATIVE mg/dL Urine Urobilinogen 0.2 0.2-1.0 mg/dL Urine Leukocyte Esterase 75 H NEGATIVE Mj/uL Urine RBC 2-5 H 0-1 /HPF Urine WBC 11-25 H 0-1 /HPF Urine Squamous Epithelial Cells RARE 0-2 /HPF Urine Other Crystals (Auto) 1 None Seen /HPF Urine Bacteria RARE None Seen /HPF Urine Osmolality 472 50-1200 mOsm/kg Urine Random Creatinine 61.63 30-135 mg/dL Urine Random Sodium 98 40-220 mmol/l Urine Random Potassium 17 L 25-125 mmol/L Urine Random Chloride 136 110-250 mmol/L Red Blood Cell Morphology See comments Current Medications Medications (Trade) Dose Ordered Sig/Chan Route PRN Reason Start Time Stop Time Status Last Admin Dose Admin Acetaminophen (TYLenol 325MG TAB) 650 mg Q4H PRN PO TEMPERATURE GREATER THAN 101 10/14/24 13:00 11/13/24 12:59 Acetaminophen/ Hydrocodone Bitart (NORco 5/325MG) 1 tab Q4H PRN PO MODERATE PAIN (4-6) 10/14/24 13:00 10/19/24 12:59 10/17/24 03:23 1 TAB Dextrose (D50w) 50 ml AD PRN IV HYPOGLYCEMIA PROTOCOL 10/14/24 17:00 11/13/24 16:59 Famotidine (Pepcid 20mg Vial) 20 mg Q24H IV 10/14/24 21:00 11/13/24 20:59 10/16/24 20:56 20 MG Ferric Sodium Gluconate Complex 125 mg/Sodium Chloride 110 ml @ 110 mls/hr DAILY IV 10/17/24 09:00 10/19/24 20:00 10/17/24 08:35 110 MLS/HR Glucagon (Glucagon 1mg Kit) 1 mg AD PRN IM HYPOGLYCEMIA PROTOCOL 10/14/24 17:00 11/13/24 16:59 Insulin Glargine (LANtus 100 UNITS/ML 10 ML VIAL) 14 units HS SQ 10/14/24 21:00 10/15/24 07:31 DC 10/14/24 20:59 14 UNITS Insulin Glargine (LANtus 100 UNITS/ML 10 ML VIAL) 20 units DAILY SQ 10/15/24 09:00 10/15/24 21:45 DC Insulin Glargine (LANtus 100 UNITS/ML 10 ML VIAL) 25 units DAILY SQ 10/16/24 09:00 10/16/24 06:23 DC Insulin Glargine (LANtus 100 UNITS/ML 10 ML VIAL) 35 units DAILY SQ 10/16/24 09:00 11/15/24 08:59 10/17/24 08:46 35 UNITS Insulin Human Regular (humuLIN R 100 UNIT/ML 3ML) AD PRN SQ SLIDING SCALE COVERAGE 10/14/24 13:00 10/14/24 16:43 DC Insulin Human Regular (humuLIN R 100 UNIT/ML 3ML) 5 unit TIDAC SQ 10/15/24 11:30 10/15/24 21:45 DC 10/15/24 17:23 5 UNIT Insulin Human Regular (humuLIN R 100 UNIT/ML 3ML) 8 unit TIDAC SQ 10/16/24 07:30 10/16/24 21:52 DC 10/16/24 17:49 8 UNIT Insulin Human Regular (humuLIN R 100 UNIT/ML 3ML) 14 unit TIDAC SQ 10/17/24 07:30 11/16/24 07:29 Insulin Human Regular (humuLIN R 100 UNIT/ML 3ML) INSULIN SLIDING SCAL... ACHS SQ 10/14/24 21:00 11/13/24 20:59 10/16/24 20:57 16 UNIT Morphine Sulfate (morPHINE 2MG SYG) 2 mg Q3H PRN IV MODERATE PAIN (4-6) IF NPO 10/14/24 13:00 10/21/24 12:59 Morphine Sulfate (morPHINE 4MG SYG) 4 mg Q3H PRN IV SEVERE PAIN (7-10) 10/14/24 13:00 10/21/24 12:59 10/16/24 05:11 4 MG Ondansetron HCl (zoFRAN 4MG INJ) 4 mg Q4H PRN IVP NAUSEA 10/14/24 13:00 11/13/24 12:59 Potassium Chloride/Dextrose/ Sod Cl 1,000 ml @ 75 mls/hr [id number] IV 10/14/24 13:00 10/14/24 16:43 DC Sodium Bicarbonate (Sodium Bicarbonate) 650 mg TID PO 10/15/24 14:00 11/14/24 13:59 10/17/24 08:36 650 MG Sodium Chloride 1,000 ml @ 75 mls/hr [id number] IV 10/14/24 17:00 11/13/24 16:59 10/17/24 00:41 75 MLS/HR DIAGNOSTICS / RADIOLOGY: [ ] ASSESSMENT: Metabolic acidosis, POA Ileostomy status status post robotic assisted ileostomy closure with small bowel resection and robotic creation of transverse colostomy History of CKD stage 4 Diabetes mellitus type 2 with associated hyperglycemia Hypertension Obesity BMI 37.0 Hyperlipidemia PLAN: - continue with admission and medical-surgical unit -patient continues to look acidotic, we will continue to monitor venous blood ga s -continue with H&H monitoring, appreciate GI recommendation and Hematology recommendation -She will continue Ferrlicit IV x 3 days -continue with postoperative recommendations per surgery. -we will defer to surgery regarding pain management. -closely monitor creatinine. We will repeat labs in the morning Continue with GI and DVT prophylaxis Case was seen and examined with Dr. Lees, above plan was formulated. ATTESTATION BY PHYSICIAN I have seen and examined the patient. I reviewed the documentation, medical decision making, and treatment plan as noted by the mid-level provider above. I agree with the findings and plan of care. YAS LEES MD, [facility] Oct 17, 2024 11:56
[2024-10-17 12:00] VITALS: BP 107/62; PULSE 63; RESP 18; TEMP 98
[2024-10-17] MEDS ORDERED: COMPOUND IV REFRIGERATED 1 EACH IVSOLN MISC PRN (12:00)
--- NOTE | 2024-10-17 15:25 | PN ---
NEPHROLOGY PROGRESS NOTE Date/Time Patient Seen: Oct 17, 2024 SUBJECTIVE: This is a 49-year-old female with past medical history of hypertension, hyperlipidemia, diabetes mellitus type 2, obesity, CKD stage 4 She presented to the hospital secondary to ileostomy status. 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 She had a coloanal anastomosis performed in the past. She was evaluated by colorectal surgeon and offered closure of ileostomy with creation of colostomy. Patient underwent robotic assisted closure of ileostomy with small bowel resection and robotic creation of transverse colostomy. She was noted with elevated BUN/creatinine. We have been consulted for renal failure. Renal function is improving Electrolytes show potassium of 3.3, replacement has been ordered UA positive for proteinuria. Renal ultrasound showed no hydronephrosis. Hemoglobin is stable at 7.9. She continues to be followed by Hematology/Oncology Iron panel was noted. She was seen in the medical floor, in no acute distress REVIEW OF SYSTEMS: GENERAL: Negative for any nausea, vomiting, fevers, chills, or weight loss. NEUROLOGIC: Negative for any blurry vision, blind spots, double vision, facial asymmetry, dysphagia, dysarthria, hemiparesis, hemisensory deficits, vertigo, ataxia. HEENT: Negative for any head trauma, neck trauma, neck stiffness, photophobia, phonophobia, sinusitis, rhinitis. CARDIAC: Negative for any chest pain, dyspnea on exertion, paroxysmal nocturnal dyspnea, peripheral edema. PULMONARY: Negative for any shortness of breath, wheezing, COPD, or TB exposure. GASTROINTESTINAL: Negative for any abdominal pain, nausea, vomiting, bright red blood per rectum, melena. GENITOURINARY: Negative for any dysuria, hematuria, incontinence. INTEGUMENTARY: Negative for any rashes, cuts, insect bites. RHEUMATOLOGIC: Negative for any joint pains, photosensitive rashes, history of vasculitis or kidney problems. HEMATOLOGIC: Negative for any abnormal bruising, frequent infections or bleeding. PHYSICAL EXAM: GENERAL: Alert and oriented x 3. No acute distress. Well-nourished. EYES: EOMI. Anicteric. HENT: Moist mucous membranes. No scleral icterus. No cervical lymphadenopathy. LUNGS: Clear to auscultation bilaterally. No accessory muscle use. CARDIOVASCULAR: Regular rate and rhythm. No murmur. No JVD. ABDOMEN: Soft, non-tender and non-distended. No palpable masses. EXTREMITIES: No edema. Non-tender.?SKIN: No rashes or lesions. Warm. NEUROLOGIC: No focal neurological deficits. CN II-XII grossly intact, but not individually tested. PSYCHIATRIC: Cooperative. Appropriate mood and affect. LABORATORY: [ ] Hematology Labs: Test 10/17/24 00:40 10/16/24 20:15 Range/Units White Blood Count 9.5 4.8-10.8 K/uL Red Blood Count 2.77 L 4.00-5.50 MIL/uL Hemoglobin 7.9 L 12.0-16.0 g/dL Hematocrit 26.3 L 36-48 % Mean Corpuscular Volume 94.9 79-99 fL Mean Corpuscular Hemoglobin 28.5 27.0-33.0 pg Mean Corpuscular Hemoglobin Concent 30.0 L 32.0-36.0 g/dL Red Cell Distribution Width 17.2 H 11.0-15.5 % Platelet Count 274 130-400 K/uL Mean Platelet Volume 9.0 7.5-10.5 fL Immature Granulocyte % (Auto) 0.5 0-1 % Neutrophils (%) (Auto) 79.3 H 40.0-77.0 % Lymphocytes (%) (Auto) 14.7 L 21.0-51.0 % Monocytes (%) (Auto) 5.3 3.0-13.0 % Eosinophils (%) (Auto) 0.1 0.0-8.0 % Basophils (%) (Auto) 0.1 0.0-5.0 % Neutrophils # (Auto) 7.5 1.8-7.7 K/uL Lymphocytes # (Auto) 1.4 1.0-4.8 K/uL Monocytes # (Auto) 0.5 0.1-1.0 K/uL Eosinophils # (Auto) 0.01 0.00-0.70 K/uL Basophils # (Auto) 0.01 0.00-0.20 K/uL Absolute Immature Granulocyte (auto 0.05 0-1 K/uL Nucleated Red Blood Cells 0.0 0.0-0.19 % Red Blood Cell Morphology See comments Chemistry Labs: Test 10/17/24 00:40 Range/Units Sodium Level 142 136-145 mmol/L Potassium Level 3.3 L 3.5-5.1 mmol/L Chloride Level 112 H 101-111 mmol/L Carbon Dioxide Level 22 21-32 mmol/L Blood Urea Nitrogen 25 H 7-18 mg/dL Creatinine 1.9 H 0.5-1.0 mg/dL Glomerular Filtration Rate Calc 32 >90 mL/min Random Glucose 99 # 70-105 mg/dL Uric Acid 4.7 2.6-7.2 mg/dL Total Calcium 8.6 8.5-10.1 mg/dL Phosphorus Level 2.3 L 2.5-4.9 mg/dL Magnesium Level 1.80 1.80-2.40 mg/dL Iron Level 18 L 50-170 mcg/dL Total Iron Binding Capacity 305 250-450 mcg/dL Percent Iron Saturation 5.9 L 22-44 % Ferritin 80 15-150 ng/mL Total Bilirubin 0.4 0.2-1.0 mg/dL Aspartate Amino Transf (AST/SGOT) 17 10-37 U/L Alanine Aminotransferase (ALT/SGPT) 20 12-78 U/L Alkaline Phosphatase 79 50-136 U/L Total Protein 7.2 6.0-8.3 g/dL Albumin 2.6 L 3.5-5.0 g/dL Thyroid Stimulating Hormone (TSH) 1.19 0.36-3.74 uIU/mL DIAGNOSTICS / RADIOLOGY: REASON: renal failure ORDERING PHYSICIAN: YAS ELIZONDO MD PROCEDURE: RENAL - US RENAL SONOGRAM US RENAL SONOGRAM HISTORY: Renal failure COMPARISON: None TECHNIQUE: Renal and bladder ultrasound study was performed. FINDINGS: The right kidney measures 9.5 x 4.4 x 4.2 cm. The left kidney measures 8 x 4 x 5.1 cm. There is left renal pelvis fullness. No evidence of hydronephrosis is seen of either kidney. Both kidneys are seen. Bladder is moderately distended. Bladder wall measures 5 mm. Prevoid bladder volume is 702 cc. IMPRESSION: 1. No hydronephrosis is seen. Left renal pelvis fullness is seen. DICTATED BY: HERLINDA ALBERTS MD DATE: 10/16/24 5223 ASSESSMENT: Renal failure Metabolic acidosis Anemia Ileostomy status status post robotic assisted ileostomy closure with small bowel resection and robotic creation of transverse colostomy Diabetes mellitus type 2 Hypertension Obesity BMI 37.0 Hyperlipidemia PLAN: Labs, diagnostic, radiologic exams reviewed and interpreted by myself and supervising physician. We have reviewed external records in detail Defer anemia management to Hematology/Oncology Require close monitoring of renal function and electrolytes Order CBC, CMP, and electrolytes in am BiPAP as necessary, for respiratory distress Monitor blood pressure adjust medication doses as needed Avoid hypotensive episodes May use Dilaudid 0.5 mg IV every 6 hours as needed for severe pain Monitor blood sugars Strict intake, output, and daily weight should be monitored Please renally adjust medications Avoid nephrotoxic and nonsteroidal drugs Avoid contrast if possible Will continue to monitor renal function, anemia, electrolytes Treatment plan discussed with patient Questions were answered We have discussed with the other team physicians in detail about the care plan We will continue to monitor the patient closely ATTESTATION BY PHYSICIAN I have seen and examined the patient. I reviewed the documentation, medical decision making, and treatment plan as noted by the mid-level provider above. I agree with the findings and plan of care. JOYCE SANTOS MD, [facility] Oct 17, 2024 15:25
[2024-10-17 16:00] VITALS: BP 107/63; PULSE 68; RESP 20; TEMP 97.8
--- NOTE | 2024-10-17 18:07 | PN ---
[facility] PROGRESS NOTE Date of Visit: Oct 17, 2024 Time of Visit: 18:05 Events / Notes: Pt with no n.v.] Review of Systems: CONSTITUTIONAL: No malaise or change in sensation of wellbeing. ENMT: No rhinorrhea, otorrhea, sinus pain, ear ache. CARDIOVASCULAR: No angina, palpitations, orthopnea or paroxysmal dyspnea. RESPIRATORY: No SOB. GASTROINTESTINAL: No abdominal pain, nausea, vomiting, diarrhea, hematemesis, melena or change in the patient's habitual bowel movements consistency/number. GENITOURINARY: No dysuria, hematuria or change in bladder continence. MUSCULOSKELETAL: No new muscle pain or decrease in muscular strength. No new joint swelling, redness or tenderness. SKIN: No new rash. Physical Exam: GEN: Awake, alert, oriented in person, time and place, and in no acute distress. HEENT: No rhinorrhea. Oral pharyngeal mucosa is pink, moist and within normal limits. CHEST: Inspection, palpation of the chest were unremarkable. Lung auscultation revealed normal breath sounds bilaterally. CARDIAC: Heart sounds are regular. ABD: Soft, non-tender and not distended. No peritoneal signs on palpation. No organomegaly. Normal bowel sounds. stoma viable EXT: No cyanosis or clubbing. No edema. SKIN: Intact. No rashes. JOINTS: No evidence of synovitis or acute arthritis. NEURO: Alert and oriented to name, place and person. Cranial nerve examination is unremarkable. No focal motor deficits. Normal speech.Strength is normal. Vital Signs (last 8hr) Date Time Temp Pulse Resp B/P (MAP) Pulse Ox O2 Delivery O2 Flow Rate FiO2 10/17/24 16:00 97.9 68 20 107/63 97 Room Air 10/17/24 12:00 98.1 63 18 107/62 98 Room Air Laboratory: [ ] Laboratory: Test 10/17/24 10:54 10/17/24 00:40 10/16/24 20:39 10/16/24 20:15 Range/Units Blood Gas Specimen Type Venous Arterial Blood Oxygen Saturation 50.7 L 94.0-98.0 % Venous Blood pH 7.337 7.320-7.430 Venous Blood pCO2 at Patient Temp 40 38-54 Venous Blood pO2 at Patient Temp 27.5 23.0-48.0 mmHg Venous Blood HCO3 20.8 L 22.0-29.0 Venous Blood Base Excess -4.6 L -2.0-3.0 Venous Blood Total Hemoglobin 9.1 L 12.0-16.0 Sodium (Blood Gas) 139 136-145 MMOL/L Bedside Potassium (Blood Gas) 3.3 L 3.4-4.5 MMOL/L Bedside Chloride (Blood Gas) 112 H 98-107 MMOL/L Bedside Glucose (Blood Gas) 153 H 65-95 MG/DL Bedside Ionized Calcium (Blood Gas) 1.18 1.15-1.33 MMOL/L Bedside Lactic Acid (Blood Gas) 1.67 H 0.36-0.75 MMOL/L Blood Gas Temperature 37.0 35.5-37.0 CELSIUS Blood Gas Vent Mode RA ROOM AIR FiO2 21.0 % Blood Gas Specimen Comment [facility] White Blood Count 9.5 4.8-10.8 K/uL Red Blood Count 2.77 L 4.00-5.50 MIL/uL Hemoglobin 7.9 L 12.0-16.0 g/dL Hematocrit 26.3 L 36-48 % Mean Corpuscular Volume 94.9 79-99 fL Mean Corpuscular Hemoglobin 28.5 27.0-33.0 pg Mean Corpuscular Hemoglobin Concent 30.0 L 32.0-36.0 g/dL Red Cell Distribution Width 17.2 H 11.0-15.5 % Platelet Count 274 130-400 K/uL Mean Platelet Volume 9.0 7.5-10.5 fL Immature Granulocyte % (Auto) 0.5 0-1 % Neutrophils (%) (Auto) 79.3 H 40.0-77.0 % Lymphocytes (%) (Auto) 14.7 L 21.0-51.0 % Monocytes (%) (Auto) 5.3 3.0-13.0 % Eosinophils (%) (Auto) 0.1 0.0-8.0 % Basophils (%) (Auto) 0.1 0.0-5.0 % Neutrophils # (Auto) 7.5 1.8-7.7 K/uL Lymphocytes # (Auto) 1.4 1.0-4.8 K/uL Monocytes # (Auto) 0.5 0.1-1.0 K/uL Eosinophils # (Auto) 0.01 0.00-0.70 K/uL Basophils # (Auto) 0.01 0.00-0.20 K/uL Absolute Immature Granulocyte (auto 0.05 0-1 K/uL Nucleated Red Blood Cells 0.0 0.0-0.19 % Sodium Level 142 136-145 mmol/L Potassium Level 3.3 L 3.5-5.1 mmol/L Chloride Level 112 H 101-111 mmol/L Carbon Dioxide Level 22 21-32 mmol/L Blood Urea Nitrogen 25 H 7-18 mg/dL Creatinine 1.9 H 0.5-1.0 mg/dL Glomerular Filtration Rate Calc 32 >90 mL/min Random Glucose 99 # 70-105 mg/dL Uric Acid 4.7 2.6-7.2 mg/dL Total Calcium 8.6 8.5-10.1 mg/dL Phosphorus Level 2.3 L 2.5-4.9 mg/dL Magnesium Level 1.80 1.80-2.40 mg/dL Iron Level 18 L 50-170 mcg/dL Total Iron Binding Capacity 305 250-450 mcg/dL Percent Iron Saturation 5.9 L 22-44 % Ferritin 80 15-150 ng/mL Total Bilirubin 0.4 0.2-1.0 mg/dL Aspartate Amino Transf (AST/SGOT) 17 10-37 U/L Alanine Aminotransferase (ALT/SGPT) 20 12-78 U/L Alkaline Phosphatase 79 50-136 U/L Total Protein 7.2 6.0-8.3 g/dL Albumin 2.6 L 3.5-5.0 g/dL Thyroid Stimulating Hormone (TSH) 1.19 0.36-3.74 uIU/mL Urine Color LIGHT-YELLOW YELLOW Urine Appearance CLEAR CLEAR Urine pH 5.5 5.0-8.0 Urine Specific [place] 1.012 1.001-1.031 Urine Protein 30 H NEGATIVE mg/dL Urine Glucose (UA) 150 H NEGATIVE mg/dL Urine Ketones NEGATIVE NEGATIVE mg/dL Urine Occult Blood +- (TRACE) H NEGATIVE Urine Nitrate NEGATIVE NEGATIVE Urine Bilirubin NEGATIVE NEGATIVE mg/dL Urine Urobilinogen 0.2 0.2-1.0 mg/dL Urine Leukocyte Esterase 75 H NEGATIVE Mj/uL Urine RBC 2-5 H 0-1 /HPF Urine WBC 11-25 H 0-1 /HPF Urine Squamous Epithelial Cells RARE 0-2 /HPF Urine Other Crystals (Auto) 1 None Seen /HPF Urine Bacteria RARE None Seen /HPF Urine Osmolality 472 50-1200 mOsm/kg Urine Random Creatinine 61.63 30-135 mg/dL Urine Random Sodium 98 40-220 mmol/l Urine Random Potassium 17 L 25-125 mmol/L Urine Random Chloride 136 110-250 mmol/L Red Blood Cell Morphology See comments Current Medications Medications (Trade) Dose Ordered Sig/Chan Route PRN Reason Start Time Stop Time Status Last Admin Dose Admin Acetaminophen (TYLenol 325MG TAB) 650 mg Q4H PRN PO TEMPERATURE GREATER THAN 101 10/14/24 13:00 11/13/24 12:59 Acetaminophen/ Hydrocodone Bitart (NORco 5/325MG) 1 tab Q4H PRN PO MODERATE PAIN (4-6) 10/14/24 13:00 10/19/24 12:59 10/17/24 13:12 1 TAB Dextrose (D50w) 50 ml AD PRN IV HYPOGLYCEMIA PROTOCOL 10/14/24 17:00 11/13/24 16:59 Famotidine (Pepcid 20mg Vial) 20 mg Q24H IV 10/14/24 21:00 11/13/24 20:59 10/16/24 20:56 20 MG Ferric Sodium Gluconate Complex 125 mg/Sodium Chloride 110 ml @ 110 mls/hr DAILY IV 10/17/24 09:00 10/19/24 20:00 10/17/24 08:35 110 MLS/HR Glucagon (Glucagon 1mg Kit) 1 mg AD PRN IM HYPOGLYCEMIA PROTOCOL 10/14/24 17:00 11/13/24 16:59 Insulin Glargine (LANtus 100 UNITS/ML 10 ML VIAL) 14 units HS SQ 10/14/24 21:00 10/15/24 07:31 DC 10/14/24 20:59 14 UNITS Insulin Glargine (LANtus 100 UNITS/ML 10 ML VIAL) 20 units DAILY SQ 10/15/24 09:00 10/15/24 21:45 DC Insulin Glargine (LANtus 100 UNITS/ML 10 ML VIAL) 25 units DAILY SQ 10/16/24 09:00 10/16/24 06:23 DC Insulin Glargine (LANtus 100 UNITS/ML 10 ML VIAL) 35 units DAILY SQ 10/16/24 09:00 11/15/24 08:59 10/17/24 08:46 35 UNITS Insulin Human Regular (humuLIN R 100 UNIT/ML 3ML) AD PRN SQ SLIDING SCALE COVERAGE 10/14/24 13:00 10/14/24 16:43 DC Insulin Human Regular (humuLIN R 100 UNIT/ML 3ML) 5 unit TIDAC SQ 10/15/24 11:30 10/15/24 21:45 DC 10/15/24 17:23 5 UNIT Insulin Human Regular (humuLIN R 100 UNIT/ML 3ML) 8 unit TIDAC SQ 10/16/24 07:30 10/16/24 21:52 DC 10/16/24 17:49 8 UNIT Insulin Human Regular (humuLIN R 100 UNIT/ML 3ML) 14 unit TIDAC SQ 10/17/24 07:30 11/16/24 07:29 10/17/24 17:18 14 UNIT Insulin Human Regular (humuLIN R 100 UNIT/ML 3ML) INSULIN SLIDING SCAL... ACHS SQ 10/14/24 21:00 10/17/24 17:18 DC 10/16/24 20:57 16 UNIT Insulin Human Regular (humuLIN R 100 UNIT/ML 3ML) INSULIN SLIDING SCAL... ACHS SQ 10/17/24 21:00 11/16/24 20:59 Morphine Sulfate (morPHINE 2MG SYG) 2 mg Q3H PRN IV MODERATE PAIN (4-6) IF NPO 10/14/24 13:00 10/21/24 12:59 Morphine Sulfate (morPHINE 4MG SYG) 4 mg Q3H PRN IV SEVERE PAIN (7-10) 10/14/24 13:00 10/21/24 12:59 10/16/24 05:11 4 MG Ondansetron HCl (zoFRAN 4MG INJ) 4 mg Q4H PRN IVP NAUSEA 10/14/24 13:00 11/13/24 12:59 Potassium Chloride/Dextrose/ Sod Cl 1,000 ml @ 75 mls/hr [id number] IV 10/14/24 13:00 10/14/24 16:43 DC Sodium Bicarbonate (Sodium Bicarbonate) 650 mg TID PO 10/15/24 14:00 11/14/24 13:59 10/17/24 14:06 650 MG Sodium Chloride 1,000 ml @ 75 mls/hr [id number] IV 10/14/24 17:00 11/13/24 16:59 10/17/24 12:07 75 MLS/HR ] Pt stable. Care plan per medicine team. Pt clear for discharge from surgical standpoint. BECKY MOORE MD Oct 17, 2024 18:07
--- NOTE | 2024-10-17 18:57 | HMCIMG ---
US VENOUS DOPPLER BILATERAL REASON: history of left leg DVT COMPARISON: None Technique: Bilateral venous doppler ultrasound was performed with spectral analysis and color flow imaging technique. FINDINGS: There is occlusive thrombus in the midportion of the left superficial femoral vein, there is some nonocclusive thrombus in the distal femoral vein. Common femoral vein appears patent as do the greater saphenous, profunda femoris and popliteal veins. Proximal calf veins. Unremarkable. Right-sided you have shows normal findings throughout. There is no deep venous thrombosis in the right lower extremity. IMPRESSION: 1. Deep venous thrombosis in the mid and distal left superficial femoral vein. 2. Normal findings on the right.
[2024-10-17 19:25] VITALS: O2SAT 96
[2024-10-17 19:53] VITALS: BP 113/64; PULSE 70; RESP 20; TEMP 98.3
[2024-10-18] VITALS (7 sets, daily range): BP systolic 103–118; BP diastolic 58–67; PULSE 68–82; RESP 16–20; TEMP 97.9–98.4; O2SAT 97–98
[2024-10-18 04:06] LABS: ABG OXYGEN SATURATION 63.9 % (94.0-98.0); BASE EXCESS,VENOUS BLOOD GAS -5.2 (-2.0-3.0); DEVICE COMMENT RN MARISSA; HCO3,VENOUS BLOOD GAS 19.9 (22.0-29.0); PCO2,VENOUS BLOOD GAS 37 (38-54); PH,VENOUS BLOOD GAS 7.348 (7.320-7.430); PO2,VENOUS BLOOD GAS 34.3 mmHg (23.0-48.0); VENT MODE, BG RA (ROOM AIR)
[2024-10-18] MEDS: morPHINE 2 MG SYG IV PRN (04:10)
[2024-10-18 04:27] LABS: HEMATOCRIT 28.4 % (36-48); MEAN CORPUSCULAR HEMOGLOBIN 28.3 pg (27.0-33.0); MEAN CORPUSCULAR HGB CONC 29.9 g/dL (32.0-36.0); MEAN CORPUSCULAR VOLUME 94.7 fL (79-99); NUCLEATED RED BLOOD CELLS 0.3 % (0.0-0.19); RED CELL DISTRIBUTION WIDTH 17.1 % (11.0-15.5); WHITE BLOOD COUNT (AUTO) 11.8 K/uL (4.8-10.8)
[2024-10-18 04:50] LABS: CREATININE 1.9 mg/dL (0.5-1.0); MAGNESIUM 1.9 mg/dL (1.80-2.40); POTASSIUM 3.6 mmol/L (3.5-5.1)
--- NOTE | 2024-10-18 11:06 | PN ---
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 She had coli annual anastomosis perform the past, she was evaluated colorectal surgeon and offered closure of ileostomy with creation of colostomy, postop day 4. Patient was evaluated in the room, discussed Doppler study results, remarkable for DVT in the mid and distal left superficial femoral vein. As per patient this has been ongoing a she is currently on anticoagulation with Eliquis 2.5 mg p.o. b.i.d. but currently on hold at this time. Plan is for IVCF via IR for tomorrow. Patient verbalized understanding. She will continue current management, c/w IV iron per hematology. REVIEW OF SYSTEMS CONSTITUTIONAL: Denies fevers, chills, or night sweats. No unintentional weight loss reported. NEUROLOGICAL: Denies headache, amaurosis fugax, motor weakness, sensory deficit, vertigo/spinning sensation, gait abnormalities, or tremors. ENT: No hearing loss, otalgia, otorrhea, rhinitis, rhinorrhea, hoarseness, or sore throat. CARDIOVASCULAR: Denies any exertional angina, dyspnea on exertion, orthopnea, paroxysmal nocturnal dyspnea, palpitations, life-threatening arrhythmias, claudication. PULMONARY: Denies any shortness of breath, cough, phlegm/sputum, hemoptysis, pleuritic chest pain. SLEEP: Denies morning headaches, daytime somnolence or napping. Denies difficulty falling asleep, staying asleep, waking from sleep. Denies knowledge of snoring. GASTROINTESTINAL: Denies any type of dysphagia to either liquids or solids. Denies nausea, vomiting, pyrosis, early satiety, abdominal pain, diarrhea, constipation, or changes in stool consistency or caliber. Denies coffee-ground emesis, hematemesis, hematochezia, or melanotic stools. GENITOURINARY: Denies frequency, urgency, nocturia, hematuria or incontinence (Storage/Irritative symptoms.) Low urinary stream, straining to void, urinary intermittency or hesitancy, splitting of the voiding stream, terminal dribbling. ENDOCRINOLOGIC: Denies polyuria, polydipsia, polyphagia or heat/cold intoleranc es. HEMATOLOGIC: Denies thrombophilia/previous clots, or coagulopathy/bleeding disorders. ONCOLOGIC: Denies personal history of malignancy. DERMATOLOGIC: Denies rashes or pruritus. PSYCHIATRIC: Denies any suicidal or homicidal ideation. Denies hallucinations. PHYSICAL EXAM GENERAL APPEARANCE: The patient is awake, alert, and oriented, in no acute cardiopulmonary distress. Patient sleeping at bedside but is able to follow conversations. Patient is obese NEUROLOGICAL: Cranial nerves II-XII grossly intact. Motor is 5/5 in bilateral upper and lower extremities proximal to distal. No sensory deficits. HEENT: Face is symmetric. Pupils are equal and reactive. Extraocular movements are intact. NECK: Supple. No JVD. No thyromegaly. No submental, submandibular, pre- /postauricular, occipital or supraclavicular lymphadenopathy. CHEST: Normal chest expansion. No Telemetry. LUNGS: Absence of any rales, rhonchi or any wheezing. CARDIOVASCULAR: Regular. S1 and S2 normal. No appreciable rubs, murmurs or gallops. ABDOMEN: Soft, nontender, and nondistended. There is no rebound, voluntary guarding, or rigidity. : Deferred. No [place]. EXTREMITIES: Non-edematous and not cyanotic. No clubbing. Good capillary refill. SKIN: No skin breakdown. Vital Signs (last 8hr) Date Time Temp Pulse Resp B/P (MAP) Pulse Ox O2 Delivery O2 Flow Rate FiO2 10/18/24 08:00 98.4 75 16 104/62 96 Room Air 21 10/18/24 04:00 98.4 72 20 118/63 94 Room Air LABS: Laboratory: Test 10/18/24 04:04 10/18/24 04:02 10/17/24 00:40 10/16/24 20:39 Range/Units Blood Gas Specimen Type Venous Arterial Blood Oxygen Saturation 63.9 L 94.0-98.0 % Venous Blood pH 7.348 7.320-7.430 Venous Blood pCO2 at Patient Temp 37 L 38-54 Venous Blood pO2 at Patient Temp 34.3 23.0-48.0 mmHg Venous Blood HCO3 19.9 L 22.0-29.0 Venous Blood Base Excess -5.2 L -2.0-3.0 Venous Blood Total Hemoglobin 9.8 L 12.0-16.0 Sodium (Blood Gas) 143 136-145 MMOL/L Bedside Potassium (Blood Gas) 3.5 3.4-4.5 MMOL/L Bedside Chloride (Blood Gas) 112 H 98-107 MMOL/L Bedside Glucose (Blood Gas) 73 65-95 MG/DL Bedside Ionized Calcium (Blood Gas) 1.20 1.15-1.33 MMOL/L Bedside Lactic Acid (Blood Gas) 2.45 H 0.36-0.75 MMOL/L Blood Gas Temperature 37.0 35.5-37.0 CELSIUS Blood Gas Vent Mode RA ROOM AIR FiO2 21.0 % Blood Gas Specimen Comment RN JESSICA White Blood Count 11.8 H 4.8-10.8 K/uL Red Blood Count 3.00 L 4.00-5.50 MIL/uL Hemoglobin 8.5 L 12.0-16.0 g/dL Hematocrit 28.4 L 36-48 % Mean Corpuscular Volume 94.7 79-99 fL Mean Corpuscular Hemoglobin 28.3 27.0-33.0 pg Mean Corpuscular Hemoglobin Concent 29.9 L 32.0-36.0 g/dL Red Cell Distribution Width 17.1 H 11.0-15.5 % Platelet Count 321 130-400 K/uL Mean Platelet Volume 9.3 7.5-10.5 fL Nucleated Red Blood Cells 0.3 H 0.0-0.19 % Sodium Level 145 136-145 mmol/L Potassium Level 3.6 3.5-5.1 mmol/L Chloride Level 112 H 101-111 mmol/L Carbon Dioxide Level 22 21-32 mmol/L Blood Urea Nitrogen 27 H 7-18 mg/dL Creatinine 1.9 H 0.5-1.0 mg/dL Glomerular Filtration Rate Calc 32 >90 mL/min Random Glucose 80 70-105 mg/dL Total Calcium 9.1 8.5-10.1 mg/dL Magnesium Level 1.90 1.80-2.40 mg/dL Immature Granulocyte % (Auto) 0.5 0-1 % Neutrophils (%) (Auto) 79.3 H 40.0-77.0 % Lymphocytes (%) (Auto) 14.7 L 21.0-51.0 % Monocytes (%) (Auto) 5.3 3.0-13.0 % Eosinophils (%) (Auto) 0.1 0.0-8.0 % Basophils (%) (Auto) 0.1 0.0-5.0 % Neutrophils # (Auto) 7.5 1.8-7.7 K/uL Lymphocytes # (Auto) 1.4 1.0-4.8 K/uL Monocytes # (Auto) 0.5 0.1-1.0 K/uL Eosinophils # (Auto) 0.01 0.00-0.70 K/uL Basophils # (Auto) 0.01 0.00-0.20 K/uL Absolute Immature Granulocyte (auto 0.05 0-1 K/uL Uric Acid 4.7 2.6-7.2 mg/dL Phosphorus Level 2.3 L 2.5-4.9 mg/dL Iron Level 18 L 50-170 mcg/dL Total Iron Binding Capacity 305 250-450 mcg/dL Percent Iron Saturation 5.9 L 22-44 % Ferritin 80 15-150 ng/mL Total Bilirubin 0.4 0.2-1.0 mg/dL Aspartate Amino Transf (AST/SGOT) 17 10-37 U/L Alanine Aminotransferase (ALT/SGPT) 20 12-78 U/L Alkaline Phosphatase 79 50-136 U/L Total Protein 7.2 6.0-8.3 g/dL Albumin 2.6 L 3.5-5.0 g/dL Thyroid Stimulating Hormone (TSH) 1.19 0.36-3.74 uIU/mL Urine Color LIGHT-YELLOW YELLOW Urine Appearance CLEAR CLEAR Urine pH 5.5 5.0-8.0 Urine Specific [place] 1.012 1.001-1.031 Urine Protein 30 H NEGATIVE mg/dL Urine Glucose (UA) 150 H NEGATIVE mg/dL Urine Ketones NEGATIVE NEGATIVE mg/dL Urine Occult Blood +- (TRACE) H NEGATIVE Urine Nitrate NEGATIVE NEGATIVE Urine Bilirubin NEGATIVE NEGATIVE mg/dL Urine Urobilinogen 0.2 0.2-1.0 mg/dL Urine Leukocyte Esterase 75 H NEGATIVE Mj/uL Urine RBC 2-5 H 0-1 /HPF Urine WBC 11-25 H 0-1 /HPF Urine Squamous Epithelial Cells RARE 0-2 /HPF Urine Other Crystals (Auto) 1 None Seen /HPF Urine Bacteria RARE None Seen /HPF Urine Osmolality 472 50-1200 mOsm/kg Urine Random Creatinine 61.63 30-135 mg/dL Urine Random Sodium 98 40-220 mmol/l Urine Random Potassium 17 L 25-125 mmol/L Urine Random Chloride 136 110-250 mmol/L Test 10/16/24 20:15 Range/Units Red Blood Cell Morphology See comments Current Medications Medications (Trade) Dose Ordered Sig/Chan Route PRN Reason Start Time Stop Time Status Last Admin Dose Admin Acetaminophen (TYLenol 325MG TAB) 650 mg Q4H PRN PO TEMPERATURE GREATER THAN 101 10/14/24 13:00 11/13/24 12:59 Acetaminophen/ Hydrocodone Bitart (NORco 5/325MG) 1 tab Q4H PRN PO MODERATE PAIN (4-6) 10/14/24 13:00 10/19/24 12:59 10/18/24 08:22 1 TAB Dextrose (D50w) 50 ml AD PRN IV HYPOGLYCEMIA PROTOCOL 10/14/24 17:00 11/13/24 16:59 Famotidine (Pepcid 20mg Vial) 20 mg Q24H IV 10/14/24 21:00 11/13/24 20:59 10/17/24 19:50 20 MG Ferric Sodium Gluconate Complex 125 mg/Sodium Chloride 110 ml @ 110 mls/hr DAILY IV 10/17/24 09:00 10/19/24 20:00 10/18/24 08:22 110 MLS/HR Glucagon (Glucagon 1mg Kit) 1 mg AD PRN IM HYPOGLYCEMIA PROTOCOL 10/14/24 17:00 11/13/24 16:59 Insulin Glargine (LANtus 100 UNITS/ML 10 ML VIAL) 14 units HS SQ 10/14/24 21:00 10/15/24 07:31 DC 10/14/24 20:59 14 UNITS Insulin Glargine (LANtus 100 UNITS/ML 10 ML VIAL) 20 units DAILY SQ 10/15/24 09:00 10/15/24 21:45 DC Insulin Glargine (LANtus 100 UNITS/ML 10 ML VIAL) 25 units DAILY SQ 10/16/24 09:00 10/16/24 06:23 DC Insulin Glargine (LANtus 100 UNITS/ML 10 ML VIAL) 35 units DAILY SQ 10/16/24 09:00 11/15/24 08:59 10/18/24 08:30 35 UNITS Insulin Human Regular (humuLIN R 100 UNIT/ML 3ML) AD PRN SQ SLIDING SCALE COVERAGE 10/14/24 13:00 10/14/24 16:43 DC Insulin Human Regular (humuLIN R 100 UNIT/ML 3ML) 5 unit TIDAC SQ 10/15/24 11:30 10/15/24 21:45 DC 10/15/24 17:23 5 UNIT Insulin Human Regular (humuLIN R 100 UNIT/ML 3ML) 8 unit TIDAC SQ 10/16/24 07:30 10/16/24 21:52 DC 10/16/24 17:49 8 UNIT Insulin Human Regular (humuLIN R 100 UNIT/ML 3ML) 10 unit TIDAC SQ 10/18/24 11:30 11/17/24 11:29 Insulin Human Regular (humuLIN R 100 UNIT/ML 3ML) 14 unit TIDAC SQ 10/17/24 07:30 10/18/24 06:50 DC 10/17/24 17:18 14 UNIT Insulin Human Regular (humuLIN R 100 UNIT/ML 3ML) INSULIN SLIDING SCAL... ACHS SQ 10/14/24 21:00 10/17/24 17:18 DC 10/16/24 20:57 16 UNIT Insulin Human Regular (humuLIN R 100 UNIT/ML 3ML) INSULIN SLIDING SCAL... ACHS SQ 10/17/24 21:00 11/16/24 20:59 Morphine Sulfate (morPHINE 2MG SYG) 2 mg Q3H PRN IV MODERATE PAIN (4-6) IF NPO 10/14/24 13:00 10/21/24 12:59 10/18/24 04:10 2 MG Morphine Sulfate (morPHINE 4MG SYG) 4 mg Q3H PRN IV SEVERE PAIN (7-10) 10/14/24 13:00 10/21/24 12:59 10/16/24 05:11 4 MG Ondansetron HCl (zoFRAN 4MG INJ) 4 mg Q4H PRN IVP NAUSEA 10/14/24 13:00 11/13/24 12:59 Potassium Chloride/Dextrose/ Sod Cl 1,000 ml @ 75 mls/hr [id number] IV 10/14/24 13:00 10/14/24 16:43 DC Sodium Bicarbonate (Sodium Bicarbonate) 650 mg TID PO 10/15/24 14:00 11/14/24 13:59 10/18/24 08:22 650 MG Sodium Chloride 1,000 ml @ 75 mls/hr [id number] IV 10/14/24 17:00 11/13/24 16:59 10/18/24 05:12 75 MLS/HR DIAGNOSTICS / RADIOLOGY: [ ] ASSESSMENT: + DVT to right mid distal femoral vein, POA Metabolic acidosis, POA Ileostomy status status post robotic assisted ileostomy closure with small bowel resection and robotic creation of transverse colostomy History of CKD stage 4 Diabetes mellitus type 2 with associated hyperglycemia Hypertension Obesity BMI 37.0 Hyperlipidemia PLAN: - continue with admission and medical-surgical unit -plan is for IVCF via IR, once placed, she will continue to resume Eliquis 2.5 mg PO BID once cleared from surgeon, follow up with PCP for adjustment -continue with H&H monitoring, appreciate GI recommendation and Hematology recommendation -She will continue Ferrlicit IV x 3 days (last day tomorrow) -continue with postoperative recommendations per surgery. -C/w pain management -closely monitor creatinine. We will repeat labs in the morning Continue with GI and DVT prophylaxis (currently on SCD) Dr. Elizondo spoke with patient at length regarding DVT to right leg. She is in agreeable for IVCF to be placed by IR in am. Patient needs her AC to be resumed once cleared by surgeon, AC to be adjusted by PCP as the current dose is subtherapeutic. Patient verbalized understanding and is in agreement with the plan Case was seen and examined with Dr. Elizondo, above plan was formulated. ADDENDUM: CONTINUE SODIUM BICARBONATE TABLET, FOLLOW VENOUS BLOOD GAS TOMORROW IN A.M. ATTESTATION BY PHYSICIAN I have seen and examined the patient. I reviewed the documentation, medical decision making, and treatment plan as noted by the mid-level provider above. I agree with the findings and plan of care. YAS ELIZONDO MD, JANICE B AGPCNP Oct 18, 2024 11:06 YAS ELIZONDO MD Oct 18, 2024 11:33
[2024-10-18 11:31] LABS: ABG OXYGEN SATURATION 87.3 % (94.0-98.0); BASE EXCESS,VENOUS BLOOD GAS -2.4 (-2.0-3.0); DEVICE COMMENT VEN; HCO3,VENOUS BLOOD GAS 21.8 (22.0-29.0); PCO2,VENOUS BLOOD GAS 35 (38-54); PH,VENOUS BLOOD GAS 7.415 (7.320-7.430); PO2,VENOUS BLOOD GAS 52.7 mmHg (23.0-48.0); VENT MODE, BG RA (ROOM AIR)
[2024-10-18] MEDS: INSULIN humuLIN R 100 UNIT/ML 3ML SQ SCH (13:20)
[2024-10-18] MEDS: acetaMINOPHEN 325 MG TAB PO PRN (13:32)
--- NOTE | 2024-10-18 13:48 | PN ---
COLORECTAL PROGRESS NOTE Date of Visit: Oct 18, 2024 Time of Visit: 13:46 Events / Notes: Pt with no n.v. Tolerating diet. passing flatus in appliance. some stool. Review of Systems: CONSTITUTIONAL: No malaise or change in sensation of wellbeing. ENMT: No rhinorrhea, otorrhea, sinus pain, ear ache. CARDIOVASCULAR: No angina, palpitations, orthopnea or paroxysmal dyspnea. RESPIRATORY: No SOB. GASTROINTESTINAL: No abdominal pain, nausea, vomiting, diarrhea, hematemesis, melena or change in the patient's habitual bowel movements consistency/number. GENITOURINARY: No dysuria, hematuria or change in bladder continence. MUSCULOSKELETAL: No new muscle pain or decrease in muscular strength. No new joint swelling, redness or tenderness. SKIN: No new rash. Physical Exam: GEN: Awake, alert, oriented in person, time and place, and in no acute distress. HEENT: No rhinorrhea. Oral pharyngeal mucosa is pink, moist and within normal limits. CHEST: Inspection, palpation of the chest were unremarkable. Lung auscultation revealed normal breath sounds bilaterally. CARDIAC: Heart sounds are regular. ABD: Soft, non-tender and not distended. No peritoneal signs on palpation. No organomegaly. Normal bowel sounds. stoma viable. wounds clean EXT: No cyanosis or clubbing. No edema. SKIN: Intact. No rashes. JOINTS: No evidence of synovitis or acute arthritis. NEURO: Alert and oriented to name, place and person. Cranial nerve examination is unremarkable. No focal motor deficits. Normal speech.Strength is normal. Vital Signs (last 8hr) Date Time Temp Pulse Resp B/P (MAP) Pulse Ox O2 Delivery O2 Flow Rate FiO2 10/18/24 12:57 98.4 75 16 103/62 96 Room Air 21 10/18/24 08:00 98.4 75 16 104/62 96 Room Air 21 10/18/24 08:00 97 Room Air* 0 21 Laboratory: [ ] Laboratory: Test 10/18/24 11:29 10/18/24 04:02 10/17/24 00:40 10/16/24 20:39 Range/Units Blood Gas Specimen Type Venous Arterial Blood Oxygen Saturation 87.3 L 94.0-98.0 % Venous Blood pH 7.415 7.320-7.430 Venous Blood pCO2 at Patient Temp 35 L 38-54 Venous Blood pO2 at Patient Temp 52.7 H 23.0-48.0 mmHg Venous Blood HCO3 21.8 L 22.0-29.0 Venous Blood Base Excess -2.4 L -2.0-3.0 Venous Blood Total Hemoglobin 8.4 L 12.0-16.0 Sodium (Blood Gas) 140 136-145 MMOL/L Bedside Potassium (Blood Gas) 3.5 3.4-4.5 MMOL/L Bedside Chloride (Blood Gas) 113 H 98-107 MMOL/L Bedside Glucose (Blood Gas) 101 H 65-95 MG/DL Bedside Ionized Calcium (Blood Gas) 1.18 1.15-1.33 MMOL/L Bedside Lactic Acid (Blood Gas) 1.22 H 0.36-0.75 MMOL/L Blood Gas Temperature 37.0 35.5-37.0 CELSIUS Blood Gas Vent Mode RA ROOM AIR FiO2 21.0 % Blood Gas Specimen Comment ALONZO White Blood Count 11.8 H 4.8-10.8 K/uL Red Blood Count 3.00 L 4.00-5.50 MIL/uL Hemoglobin 8.5 L 12.0-16.0 g/dL Hematocrit 28.4 L 36-48 % Mean Corpuscular Volume 94.7 79-99 fL Mean Corpuscular Hemoglobin 28.3 27.0-33.0 pg Mean Corpuscular Hemoglobin Concent 29.9 L 32.0-36.0 g/dL Red Cell Distribution Width 17.1 H 11.0-15.5 % Platelet Count 321 130-400 K/uL Mean Platelet Volume 9.3 7.5-10.5 fL Nucleated Red Blood Cells 0.3 H 0.0-0.19 % Sodium Level 145 136-145 mmol/L Potassium Level 3.6 3.5-5.1 mmol/L Chloride Level 112 H 101-111 mmol/L Carbon Dioxide Level 22 21-32 mmol/L Blood Urea Nitrogen 27 H 7-18 mg/dL Creatinine 1.9 H 0.5-1.0 mg/dL Glomerular Filtration Rate Calc 32 >90 mL/min Random Glucose 80 70-105 mg/dL Total Calcium 9.1 8.5-10.1 mg/dL Magnesium Level 1.90 1.80-2.40 mg/dL Immature Granulocyte % (Auto) 0.5 0-1 % Neutrophils (%) (Auto) 79.3 H 40.0-77.0 % Lymphocytes (%) (Auto) 14.7 L 21.0-51.0 % Monocytes (%) (Auto) 5.3 3.0-13.0 % Eosinophils (%) (Auto) 0.1 0.0-8.0 % Basophils (%) (Auto) 0.1 0.0-5.0 % Neutrophils # (Auto) 7.5 1.8-7.7 K/uL Lymphocytes # (Auto) 1.4 1.0-4.8 K/uL Monocytes # (Auto) 0.5 0.1-1.0 K/uL Eosinophils # (Auto) 0.01 0.00-0.70 K/uL Basophils # (Auto) 0.01 0.00-0.20 K/uL Absolute Immature Granulocyte (auto 0.05 0-1 K/uL Uric Acid 4.7 2.6-7.2 mg/dL Phosphorus Level 2.3 L 2.5-4.9 mg/dL Iron Level 18 L 50-170 mcg/dL Total Iron Binding Capacity 305 250-450 mcg/dL Percent Iron Saturation 5.9 L 22-44 % Ferritin 80 15-150 ng/mL Total Bilirubin 0.4 0.2-1.0 mg/dL Aspartate Amino Transf (AST/SGOT) 17 10-37 U/L Alanine Aminotransferase (ALT/SGPT) 20 12-78 U/L Alkaline Phosphatase 79 50-136 U/L Total Protein 7.2 6.0-8.3 g/dL Albumin 2.6 L 3.5-5.0 g/dL Thyroid Stimulating Hormone (TSH) 1.19 0.36-3.74 uIU/mL Urine Color LIGHT-YELLOW YELLOW Urine Appearance CLEAR CLEAR Urine pH 5.5 5.0-8.0 Urine Specific [place] 1.012 1.001-1.031 Urine Protein 30 H NEGATIVE mg/dL Urine Glucose (UA) 150 H NEGATIVE mg/dL Urine Ketones NEGATIVE NEGATIVE mg/dL Urine Occult Blood +- (TRACE) H NEGATIVE Urine Nitrate NEGATIVE NEGATIVE Urine Bilirubin NEGATIVE NEGATIVE mg/dL Urine Urobilinogen 0.2 0.2-1.0 mg/dL Urine Leukocyte Esterase 75 H NEGATIVE Mj/uL Urine RBC 2-5 H 0-1 /HPF Urine WBC 11-25 H 0-1 /HPF Urine Squamous Epithelial Cells RARE 0-2 /HPF Urine Other Crystals (Auto) 1 None Seen /HPF Urine Bacteria RARE None Seen /HPF Urine Osmolality 472 50-1200 mOsm/kg Urine Random Creatinine 61.63 30-135 mg/dL Urine Random Sodium 98 40-220 mmol/l Urine Random Potassium 17 L 25-125 mmol/L Urine Random Chloride 136 110-250 mmol/L Test 10/16/24 20:15 Range/Units Red Blood Cell Morphology See comments Current Medications Medications (Trade) Dose Ordered Sig/Chan Route PRN Reason Start Time Stop Time Status Last Admin Dose Admin Acetaminophen (TYLenol 325MG TAB) 650 mg Q4H PRN PO TEMPERATURE GREATER THAN 101 10/14/24 13:00 11/13/24 12:59 10/18/24 13:32 650 MG Acetaminophen/ Hydrocodone Bitart (NORco 5/325MG) 1 tab Q4H PRN PO MODERATE PAIN (4-6) 10/14/24 13:00 10/19/24 12:59 10/18/24 08:22 1 TAB Dextrose (D50w) 50 ml AD PRN IV HYPOGLYCEMIA PROTOCOL 10/14/24 17:00 11/13/24 16:59 Famotidine (Pepcid 20mg Vial) 20 mg Q24H IV 10/14/24 21:00 11/13/24 20:59 10/17/24 19:50 20 MG Ferric Sodium Gluconate Complex 125 mg/Sodium Chloride 110 ml @ 110 mls/hr DAILY IV 10/17/24 09:00 10/19/24 20:00 10/18/24 08:22 110 MLS/HR Glucagon (Glucagon 1mg Kit) 1 mg AD PRN IM HYPOGLYCEMIA PROTOCOL 10/14/24 17:00 11/13/24 16:59 Insulin Glargine (LANtus 100 UNITS/ML 10 ML VIAL) 14 units HS SQ 10/14/24 21:00 10/15/24 07:31 DC 10/14/24 20:59 14 UNITS Insulin Glargine (LANtus 100 UNITS/ML 10 ML VIAL) 20 units DAILY SQ 10/15/24 09:00 10/15/24 21:45 DC Insulin Glargine (LANtus 100 UNITS/ML 10 ML VIAL) 25 units DAILY SQ 10/16/24 09:00 10/16/24 06:23 DC Insulin Glargine (LANtus 100 UNITS/ML 10 ML VIAL) 35 units DAILY SQ 10/16/24 09:00 11/15/24 08:59 10/18/24 08:30 35 UNITS Insulin Human Regular (humuLIN R 100 UNIT/ML 3ML) AD PRN SQ SLIDING SCALE COVERAGE 10/14/24 13:00 10/14/24 16:43 DC Insulin Human Regular (humuLIN R 100 UNIT/ML 3ML) 5 unit TIDAC SQ 10/15/24 11:30 10/15/24 21:45 DC 10/15/24 17:23 5 UNIT Insulin Human Regular (humuLIN R 100 UNIT/ML 3ML) 8 unit TIDAC SQ 10/16/24 07:30 10/16/24 21:52 DC 10/16/24 17:49 8 UNIT Insulin Human Regular (humuLIN R 100 UNIT/ML 3ML) 10 unit TIDAC SQ 10/18/24 11:30 11/17/24 11:29 10/18/24 13:20 10 UNIT Insulin Human Regular (humuLIN R 100 UNIT/ML 3ML) 14 unit TIDAC SQ 10/17/24 07:30 10/18/24 06:50 DC 10/17/24 17:18 14 UNIT Insulin Human Regular (humuLIN R 100 UNIT/ML 3ML) INSULIN SLIDING SCAL... ACHS SQ 10/14/24 21:00 10/17/24 17:18 DC 10/16/24 20:57 16 UNIT Insulin Human Regular (humuLIN R 100 UNIT/ML 3ML) INSULIN SLIDING SCAL... ACHS SQ 10/17/24 21:00 11/16/24 20:59 Morphine Sulfate (morPHINE 2MG SYG) 2 mg Q3H PRN IV MODERATE PAIN (4-6) IF NPO 10/14/24 13:00 10/21/24 12:59 10/18/24 04:10 2 MG Morphine Sulfate (morPHINE 4MG SYG) 4 mg Q3H PRN IV SEVERE PAIN (7-10) 10/14/24 13:00 10/21/24 12:59 10/16/24 05:11 4 MG Ondansetron HCl (zoFRAN 4MG INJ) 4 mg Q4H PRN IVP NAUSEA 10/14/24 13:00 11/13/24 12:59 Potassium Chloride/Dextrose/ Sod Cl 1,000 ml @ 75 mls/hr [id number] IV 10/14/24 13:00 10/14/24 16:43 DC Sodium Bicarbonate (Sodium Bicarbonate) 650 mg TID PO 10/15/24 14:00 11/14/24 13:59 10/18/24 13:18 650 MG Sodium Chloride 1,000 ml @ 75 mls/hr [id number] IV 10/14/24 17:00 11/13/24 16:59 10/18/24 05:12 75 MLS/HR ] Pt stable. Care plan per medicine team. Pt clear for discharge from surgical standpoint. Agree with IVC filter after discussion with Dr. Lees. BECKY MOORE MD Oct 18, 2024 13:48
[2024-10-18] MEDS: doCUSate SODIUM 100 MG CAP PO ONE (14:20)
--- NOTE | 2024-10-18 15:27 | PN ---
NEPHROLOGY PROGRESS NOTE Date/Time Patient Seen: Oct 18, 2024 Reason for Consultation: 15:23 SUBJECTIVE: This is a 49-year-old female with past medical history of hypertension, hyperlipidemia, diabetes mellitus type 2, obesity, CKD stage 4 She presented to the hospital secondary to ileostomy status. 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 She had a coloanal anastomosis performed in the past. She was evaluated by colorectal surgeon and offered closure of ileostomy with creation of colostomy. Patient underwent robotic assisted closure of ileostomy with small bowel resection and robotic creation of transverse colostomy. She was noted with elevated BUN/creatinine. We have been consulted for renal failure. Renal function and electrolytes are stable UA positive for proteinuria. Renal ultrasound showed no hydronephrosis. Hemoglobin is stable at 7.9. She continues to be followed by Hematology/Oncology Doppler study results, remarkable for DVT in the mid and distal left superficial femoral vein IVC filter is planned for tomorrow by IR. She was seen in the medical floor, in no acute distress Family at bedside REVIEW OF SYSTEMS: GENERAL: Negative for any nausea, vomiting, fevers, chills, or weight loss. NEUROLOGIC: Negative for any blurry vision, blind spots, double vision, facial asymmetry, dysphagia, dysarthria, hemiparesis, hemisensory deficits, vertigo, ataxia. HEENT: Negative for any head trauma, neck trauma, neck stiffness, photophobia, phonophobia, sinusitis, rhinitis. CARDIAC: Negative for any chest pain, dyspnea on exertion, paroxysmal nocturnal dyspnea, peripheral edema. PULMONARY: Negative for any shortness of breath, wheezing, COPD, or TB exposure. GASTROINTESTINAL: Negative for any abdominal pain, nausea, vomiting, bright red blood per rectum, melena. GENITOURINARY: Negative for any dysuria, hematuria, incontinence. INTEGUMENTARY: Negative for any rashes, cuts, insect bites. RHEUMATOLOGIC: Negative for any joint pains, photosensitive rashes, history of vasculitis or kidney problems. HEMATOLOGIC: Negative for any abnormal bruising, frequent infections or bleeding. PHYSICAL EXAM: GENERAL: Alert and oriented x 3. No acute distress. Well-nourished. EYES: EOMI. Anicteric. HENT: Moist mucous membranes. No scleral icterus. No cervical lymphadenopathy. LUNGS: Clear to auscultation bilaterally. No accessory muscle use. CARDIOVASCULAR: Regular rate and rhythm. No murmur. No JVD. ABDOMEN: Soft, non-tender and non-distended. No palpable masses. EXTREMITIES: No edema. Non-tender.?SKIN: No rashes or lesions. Warm. NEUROLOGIC: No focal neurological deficits. CN II-XII grossly intact, but not individually tested. PSYCHIATRIC: Cooperative. Appropriate mood and affect. LABORATORY: [ ] Hematology Labs: Test 10/18/24 04:02 10/17/24 00:40 10/16/24 20:15 Range/Units White Blood Count 11.8 H 4.8-10.8 K/uL Red Blood Count 3.00 L 4.00-5.50 MIL/uL Hemoglobin 8.5 L 12.0-16.0 g/dL Hematocrit 28.4 L 36-48 % Mean Corpuscular Volume 94.7 79-99 fL Mean Corpuscular Hemoglobin 28.3 27.0-33.0 pg Mean Corpuscular Hemoglobin Concent 29.9 L 32.0-36.0 g/dL Red Cell Distribution Width 17.1 H 11.0-15.5 % Platelet Count 321 130-400 K/uL Mean Platelet Volume 9.3 7.5-10.5 fL Nucleated Red Blood Cells 0.3 H 0.0-0.19 % Immature Granulocyte % (Auto) 0.5 0-1 % Neutrophils (%) (Auto) 79.3 H 40.0-77.0 % Lymphocytes (%) (Auto) 14.7 L 21.0-51.0 % Monocytes (%) (Auto) 5.3 3.0-13.0 % Eosinophils (%) (Auto) 0.1 0.0-8.0 % Basophils (%) (Auto) 0.1 0.0-5.0 % Neutrophils # (Auto) 7.5 1.8-7.7 K/uL Lymphocytes # (Auto) 1.4 1.0-4.8 K/uL Monocytes # (Auto) 0.5 0.1-1.0 K/uL Eosinophils # (Auto) 0.01 0.00-0.70 K/uL Basophils # (Auto) 0.01 0.00-0.20 K/uL Absolute Immature Granulocyte (auto 0.05 0-1 K/uL Red Blood Cell Morphology See comments Chemistry Labs: Test 10/18/24 04:02 10/17/24 00:40 Range/Units Sodium Level 145 136-145 mmol/L Potassium Level 3.6 3.5-5.1 mmol/L Chloride Level 112 H 101-111 mmol/L Carbon Dioxide Level 22 21-32 mmol/L Blood Urea Nitrogen 27 H 7-18 mg/dL Creatinine 1.9 H 0.5-1.0 mg/dL Glomerular Filtration Rate Calc 32 >90 mL/min Random Glucose 80 70-105 mg/dL Total Calcium 9.1 8.5-10.1 mg/dL Magnesium Level 1.90 1.80-2.40 mg/dL Uric Acid 4.7 2.6-7.2 mg/dL Phosphorus Level 2.3 L 2.5-4.9 mg/dL Iron Level 18 L 50-170 mcg/dL Total Iron Binding Capacity 305 250-450 mcg/dL Percent Iron Saturation 5.9 L 22-44 % Ferritin 80 15-150 ng/mL Total Bilirubin 0.4 0.2-1.0 mg/dL Aspartate Amino Transf (AST/SGOT) 17 10-37 U/L Alanine Aminotransferase (ALT/SGPT) 20 12-78 U/L Alkaline Phosphatase 79 50-136 U/L Total Protein 7.2 6.0-8.3 g/dL Albumin 2.6 L 3.5-5.0 g/dL Thyroid Stimulating Hormone (TSH) 1.19 0.36-3.74 uIU/mL DIAGNOSTICS / RADIOLOGY: REASON: history of left leg DVT ORDERING PHYSICIAN: YAS ELIZONDO MD PROCEDURE: VENOUS ALPA - US VENOUS DOPPLER BILATERAL US VENOUS DOPPLER BILATERAL REASON: history of left leg DVT COMPARISON: None Technique: Bilateral venous doppler ultrasound was performed with spectral analysis and color flow imaging technique. FINDINGS: There is occlusive thrombus in the midportion of the left superficial femoral vein, there is some nonocclusive thrombus in the distal femoral vein. Common femoral vein appears patent as do the greater saphenous, profunda femoris and popliteal veins. Proximal calf veins. Unremarkable. Right-sided you have shows normal findings throughout. There is no deep venous thrombosis in the right lower extremity. IMPRESSION: 1. Deep venous thrombosis in the mid and distal left superficial femoral vein. 2. Normal findings on the right. DICTATED BY: CARLO FRANK MD DATE: 10/17/24 1853 REASON: renal failure ORDERING PHYSICIAN: YAS ELIZONDO MD PROCEDURE: RENAL - US RENAL SONOGRAM US RENAL SONOGRAM HISTORY: Renal failure COMPARISON: None TECHNIQUE: Renal and bladder ultrasound study was performed. FINDINGS: The right kidney measures 9.5 x 4.4 x 4.2 cm. The left kidney measures 8 x 4 x 5.1 cm. There is left renal pelvis fullness. No evidence of hydronephrosis is seen of either kidney. Both kidneys are seen. Bladder is moderately distended. Bladder wall measures 5 mm. Prevoid bladder volume is 702 cc. IMPRESSION: 1. No hydronephrosis is seen. Left renal pelvis fullness is seen. DICTATED BY: HERLINDA ALBERTS MD DATE: 10/16/24 1441 ASSESSMENT: Renal failure Metabolic acidosis Anemia Ileostomy status status post robotic assisted ileostomy closure with small bowel resection and robotic creation of transverse colostomy Diabetes mellitus type 2 Hypertension Obesity BMI 37.0 Hyperlipidemia PLAN: Labs, diagnostic, radiologic exams reviewed and interpreted by myself and supervising physician. We have reviewed external records in detail There is no need for renal replacement therapy at this time. Defer anemia management to Hematology/Oncology Require close monitoring of renal function and electrolytes Order CBC, CMP, and electrolytes in am BiPAP as necessary, for respiratory distress Monitor blood pressure adjust medication doses as needed Avoid hypotensive episodes May use Dilaudid 0.5 mg IV every 6 hours as needed for severe pain Monitor blood sugars Strict intake, output, and daily weight should be monitored Please renally adjust medications Avoid nephrotoxic and nonsteroidal drugs Avoid contrast if possible Will continue to monitor renal function, anemia, electrolytes Treatment plan discussed with patient Questions were answered We have discussed with the other team physicians in detail about the care plan We will continue to monitor the patient closely ATTESTATION BY PHYSICIAN I have seen and examined the patient. I reviewed the documentation, medical decision making, and treatment plan as noted by the mid-level provider above. I agree with the findings and plan of care. JOYCE SANTOS MD, [facility] Oct 18, 2024 15:27
--- NOTE | 2024-10-18 17:13 | NUR ---
NOTE 1700 SCHEDULED INSULIN HELD, PT STATED SHE WILL NOT BE EATING DINNER AND REQUESTED INSULIN BE HELD
--- NOTE | 2024-10-18 19:25 | PN ---
endocrinology progress note Date of Service: Oct 18, 2024 , subjective: glucose are stable running low normal, so insulin decreased patient has dm-2 for many years and use toujeo 10 units daily, humalog 30 units bid and afrezza insulin 20 units before lunch. hba1c 8.6% and she follows for dm-2 with endocrinology in [place]. REVIEW OF SYSTEMS CONSTITUTIONAL: Denies fevers, chills, or night sweats. No unintentional weight loss reported. NEUROLOGICAL: Denies headache, amaurosis fugax, motor weakness, sensory deficit, vertigo/spinning sensation, gait abnormalities, or tremors. ENT: No hearing loss, otalgia, otorrhea, rhinitis, rhinorrhea, hoarseness, or sore throat. CARDIOVASCULAR: Denies any exertional angina, dyspnea on exertion, orthopnea, paroxysmal nocturnal dyspnea, palpitations, life-threatening arrhythmias, claudication. PULMONARY: Denies any shortness of breath, cough, phlegm/sputum, hemoptysis, pleuritic chest pain. SLEEP: Denies morning headaches, daytime somnolence or napping. Denies difficulty falling asleep, staying asleep, waking from sleep. Denies knowledge of snoring. GASTROINTESTINAL: Denies any type of dysphagia to either liquids or solids. Denies nausea, vomiting, pyrosis, early satiety, abdominal pain, diarrhea, constipation, or changes in stool consistency or caliber. Denies coffee-ground emesis, hematemesis, hematochezia, or melanotic stools. GENITOURINARY: Denies frequency, urgency, nocturia, hematuria or incontinence (Storage/Irritative symptoms.) Low urinary stream, straining to void, urinary intermittency or hesitancy, splitting of the voiding stream, terminal dribbling. ENDOCRINOLOGIC: Denies polyuria, polydipsia, polyphagia or heat/cold intolerances. HEMATOLOGIC: Denies thrombophilia/previous clots, or coagulopathy/bleeding disorders. ONCOLOGIC: Denies personal history of malignancy. DERMATOLOGIC: Denies rashes or pruritus. PSYCHIATRIC: Denies any suicidal or homicidal ideation. Denies hallucinations. PAST MEDICAL HISTORY: Hypertension, hyperlipidemia, diabetes mellitus type 2, obesity, CKD stage 4 PAST SURGICAL HISTORY: History of ileostomy, history of colo anal anastomosis PAST SOCIAL HISTORY: Denied smoking, alcohol, drug FAMILY HISTORY: Denied any pertinent family history Coded Allergies: Penicillins (Unverified Allergy, Unknown, hives, 06/30/24) ASSESSMENT: Diabetes mellitus type 2 with associated hyperglycemia patient has dm-2 for many years and use toujeo 10 units daily, humalog 30 units bid and afrezza insulin 20 units before lunch. hba1c 8.6% and she follows for dm-2 with endocrinology in [place]. glucose are stable running low normal, so insulin decreased Ileostomy status status post robotic assisted ileostomy closure with small bowel resection and robotic creation of transverse colostomy History of CKD stage 4 Hypertension Obesity BMI 37.0 Hyperlipidemia PLAN: - decrease lantus to 25 units tid before meals -decrease regular insulin to 10 units qac before meals continue medium dose ssi check glucose q x 6 hourly follows with endocrinology in [place] Vitals/Labs Vital Signs Date Time Temp Pulse Resp B/P (MAP) Pulse Ox O2 Delivery O2 Flow Rate FiO2 10/18/24 17:09 98.1 68 16 109/67 96 Room Air 21 10/18/24 08:00 0 Laboratory Tests 10/18/24 04:02 Medications Current Medications Ertapenem 50 ml @ 100 mls/hr ONCE ONCE IV; Start 10/14/24 at 06:30; Stop 10/14/24 at 06:59; Status DC Lidocaine HCl 100 mg STK-MED ONCE .ROUTE; Start 10/14/24 at 06:47; Stop 10/14/24 at 06:47; Status DC Propofol 200 mg STK-MED ONCE IV; Start 10/14/24 at 06:47; Stop 10/14/24 at 06:47; Status DC Midazolam HCl 2 mg STK-MED ONCE .ROUTE; Start 10/14/24 at 06:48; Stop 10/14/24 at 06:48; Status DC Rocuronium [place] 50 mg STK-MED ONCE .ROUTE; Start 10/14/24 at 06:48; Stop 10/14/24 at 06:48; Status DC Fentanyl Citrate 100 mcg STK-MED ONCE .ROUTE; Start 10/14/24 at 06:48; Stop 10/14/24 at 06:48; Status DC Sodium Chloride 1,000 ml @ As Directed STK-MED ONCE IV Last administered on 10/14/24at 09:00; Start 10/14/24 at 06:53; Stop 10/14/24 at 06:53; Status DC Dexmedetomidine HCl 200 mcg STK-MED ONCE IV; Start 10/14/24 at 07:11; Stop 10/14/24 at 07:12; Status DC Ketamine HCl 500 mg STK-MED ONCE IJ; Start 10/14/24 at 07:12; Stop 10/14/24 at 07:12; Status DC Scopolamine HBr 1 patch STK-MED ONCE TD; Start 10/14/24 at 07:19; Stop 10/14/24 at 07:19; Status DC Acetaminophen 100 ml @ As Directed STK-MED ONCE .ROUTE; Start 10/14/24 at 07:19; Stop 10/14/24 at 07:20; Status DC Lidocaine/ Epinephrine 20 ml STK-MED ONCE .ROUTE Last administered on 10/14/24at 09:08; Start 10/14/24 at 07:29; Stop 10/14/24 at 07:29; Status DC Bupivacaine HCl 5 mg STK-MED ONCE .ROUTE Last administered on 10/14/24at 09:08; Start 10/14/24 at 07:30; Stop 10/14/24 at 07:30; Status DC Phenylephrine HCl 10 mg STK-MED ONCE IV; Start 10/14/24 at 08:36; Stop 10/14/24 at 08:37; Status DC Dexamethasone Sodium Phosphate 10 mg STK-MED ONCE .ROUTE; Start 10/14/24 at 08:50; Stop 10/14/24 at 08:50; Status DC Ondansetron HCl 4 mg STK-MED ONCE .ROUTE; Start 10/14/24 at 08:50; Stop 10/14/24 at 08:51; Status DC Diphenhydramine HCl 50 mg STK-MED ONCE .ROUTE; Start 10/14/24 at 08:52; Stop 10/14/24 at 08:53; Status DC Ketorolac Tromethamine 30 mg STK-MED ONCE .ROUTE; Start 10/14/24 at 08:52; Stop 10/14/24 at 08:53; Status DC Rocuronium [place] 50 mg STK-MED ONCE .ROUTE; Start 10/14/24 at 09:05; Stop 10/14/24 at 09:05; Status DC Ephedrine Sulfate 50 mg STK-MED ONCE .ROUTE; Start 10/14/24 at 09:12; Stop 10/14/24 at 09:12; Status DC Indocyanine Green 25 mg STK-MED ONCE IJ; Start 10/14/24 at 09:19; Stop 10/14/24 at 09:20; Status DC Phenylephrine HCl 10 mg STK-MED ONCE IV; Start 10/14/24 at 09:36; Stop 10/14/24 at 09:37; Status DC Phenylephrine HCl 10 mg STK-MED ONCE IV; Start 10/14/24 at 09:38; Stop 10/14/24 at 09:38; Status DC Fentanyl Citrate 100 mcg STK-MED ONCE .ROUTE; Start 10/14/24 at 11:02; Stop 10/14/24 at 11:03; Status DC Glycopyrrolate 1 mg STK-MED ONCE .ROUTE; Start 10/14/24 at 11:47; Stop 10/14/24 at 11:48; Status DC Neostigmine Methylsulfate 10 mg STK-MED ONCE IV; Start 10/14/24 at 11:48; Stop 10/14/24 at 11:48; Status DC Insulin Human Regular 300 unit STK-MED ONCE .ROUTE Last administered on 10/14/24at 12:30; Start 10/14/24 at 12:25; Stop 10/14/24 at 12:25; Status DC Meperidine HCl 25 mg STK-MED ONCE .ROUTE Last administered on 10/14/24at 12:38; Start 10/14/24 at 12:35; Stop 10/14/24 at 12:35; Status DC Acetaminophen/ Hydrocodone Bitart 1 tab Q4H PRN PO Last administered on 10/18/24at 16:16; Start 10/14/24 at 13:00; Stop 10/19/24 at 12:59 Morphine Sulfate 2 mg Q3H PRN IV Last administered on 10/18/24at 04:10; Start 10/14/24 at 13:00; Stop 10/21/24 at 12:59 Morphine Sulfate 4 mg Q3H PRN IV Last administered on 10/16/24at 05:11; Start 10/14/24 at 13:00; Stop 10/21/24 at 12:59 Ondansetron HCl 4 mg Q4H PRN IVP; Start 10/14/24 at 13:00; Stop 11/13/24 at 12:59 Acetaminophen 650 mg Q4H PRN PO Last administered on 10/18/24at 13:32; Start 10/14/24 at 13:00; Stop 11/13/24 at 12:59 Famotidine 20 mg Q24H IV Last administered on 10/17/24at 19:50; Start 10/14/24 at 21:00; Stop 11/13/24 at 20:59 Insulin Human Regular AD PRN SQ; Start 10/14/24 at 13:00; Stop 10/14/24 at 16:43; Status DC Potassium Chloride/Dextrose/ Sod Cl 1,000 ml @ 75 mls/hr [id number] IV; Start 10/14/24 at 13:00; Stop 10/14/24 at 16:43; Status DC Sodium Chloride 1,000 ml @ 75 mls/hr [id number] IV Last administered on 10/18/24at 05:12; Start 10/14/24 at 17:00; Stop 11/13/24 at 16:59 Insulin Glargine 14 units HS SQ Last administered on 10/14/24at 20:59; Start 10/14/24 at 21:00; Stop 10/15/24 at 07:31; Status DC Insulin Human Regular INSULIN SLIDING SCAL... ACHS SQ Last administered on 10/16/24at 20:57; Start 10/14/24 at 21:00; Stop 10/17/24 at 17:18; Status DC Dextrose 50 ml AD PRN IV; Start 10/14/24 at 17:00; Stop 11/13/24 at 16:59 Glucagon 1 mg AD PRN IM; Start 10/14/24 at 17:00; Stop 11/13/24 at 16:59 Insulin Glargine 20 units DAILY SQ; Start 10/15/24 at 09:00; Stop 10/15/24 at 21:45; Status DC Insulin Human Regular 5 unit TIDAC SQ Last administered on 10/15/24at 17:23; Start 10/15/24 at 11:30; Stop 10/15/24 at 21:45; Status DC Sodium Bicarbonate 50 meq ONCE ONCE IV; Start 10/15/24 at 12:00; Stop 10/15/24 at 12:04; Status DC Sodium Bicarbonate 650 mg TID PO Last administered on 10/18/24at 13:18; Start 10/15/24 at 14:00; Stop 11/14/24 at 13:59 Insulin Glargine 25 units DAILY SQ; Start 10/16/24 at 09:00; Stop 10/16/24 at 06:23; Status DC Insulin Human Regular 8 unit TIDAC SQ Last administered on 10/16/24at 17:49; Start 10/16/24 at 07:30; Stop 10/16/24 at 21:52; Status DC Insulin Glargine 35 units DAILY SQ Last administered on 10/18/24at 08:30; Start 10/16/24 at 09:00; Stop 11/15/24 at 08:59 Metoclopramide HCl 10 mg ONCE ONCE IVP Last administered on 10/16/24at 09:13; Start 10/16/24 at 09:00; Stop 10/16/24 at 09:01; Status DC Dexamethasone 8 mg ONCE ONCE PO Last administered on 10/16/24at 09:13; Start 10/16/24 at 09:00; Stop 10/16/24 at 09:01; Status DC Potassium Chloride 100 ml @ 50 mls/hr ONCE ONCE IV Last administered on 10/16/24at 11:23; Start 10/16/24 at 11:00; Stop 10/16/24 at 12:59; Status DC Potassium Chloride 40 meq ONCE ONCE PO; Start 10/16/24 at 13:00; Stop 10/16/24 at 13:01; Status DC Sodium Bicarbonate 50 meq ONCE ONCE IV Last administered on 10/16/24at 14:50; Start 10/16/24 at 13:00; Stop 10/16/24 at 13:01; Status DC Ferric Sodium Gluconate Complex 125 mg/Sodium Chloride 110 ml @ 110 mls/hr DAILY IV Last administered on 10/18/24at 08:22; Start 10/17/24 at 09:00; Stop 10/19/24 at 20:00 Insulin Human Regular 14 unit TIDAC SQ Last administered on 10/17/24at 17:18; Start 10/17/24 at 07:30; Stop 10/18/24 at 06:50; Status DC Potassium Chloride 40 meq ONCE ONCE PO Last administered on 10/17/24at 10:47; Start 10/17/24 at 09:30; Stop 10/17/24 at 09:31; Status DC Insulin Human Regular INSULIN SLIDING SCAL... ACHS SQ; Start 10/17/24 at 21:00; Stop 11/16/24 at 20:59 Insulin Human Regular 10 unit TIDAC SQ Last administered on 10/18/24at 13:20; Start 10/18/24 at 11:30; Stop 11/17/24 at 11:29 Docusate Sodium 100 mg ONCE ONCE PO Last administered on 10/18/24at 14:20; Start 10/18/24 at 14:00; Stop 10/18/24 at 14:01; Status DC RUBIO FARRIS MD Oct 18, 2024 19:25
[2024-10-19] VITALS (17 sets, daily range): BP systolic 91–118; BP diastolic 52–68; PULSE 70–81; RESP 16–18; TEMP 98–99.4; O2SAT 96
--- NOTE | 2024-10-19 02:20 | NUR ---
nursing note patient alert and oriented times 4. at bedside. plan of care discussed with them and they verbalized understanding. she is ambulatory to the restroom. on 10/17/24, I taught the how to change her right abdominal dressing by removing 2 inches of iodoform dressing and placing new gauze and tegaderm. Tonight on 10/18/23, he wanted to do it himself with my supervision. He removed 2 inches of iodoform, cleaned the skin with ns, pat dry, applied gauze, and tegaderm. The patient tolerated it well. She has slept about 4 hours tonight. she is npo after midnight for an IVC filter placement today. I faxed the order to dye house helper, Earl, and I gave him the orders physically when he rounded. patient has intermittent abdominal pain relieved by pain medication. She also drains and removed brown fluid from her colostomy bag as well as air. Call light within reach, bed alarm on, 2 side rails up. will continue to monitor patient.
[2024-10-19 06:30] LABS: HEMATOCRIT 25.6 % (36-48); MEAN CORPUSCULAR HEMOGLOBIN 28.7 pg (27.0-33.0); MEAN CORPUSCULAR HGB CONC 30.9 g/dL (32.0-36.0); MEAN CORPUSCULAR VOLUME 93.1 fL (79-99); NUCLEATED RED BLOOD CELLS 0.3 % (0.0-0.19); RED BLOOD CELL COUNT(AUTO) 2.75 MIL/uL (4.00-5.50); RED CELL DISTRIBUTION WIDTH 16.7 % (11.0-15.5); WHITE BLOOD COUNT (AUTO) 7.7 K/uL (4.8-10.8)
[2024-10-19 06:40] LABS: INR 0.99 (0.85-1.15); PROTHROMBIN TIME 11.1 SEC (9.6-11.6)
[2024-10-19 06:51] LABS: CREATININE 1.9 mg/dL (0.5-1.0); MAGNESIUM 1.8 mg/dL (1.80-2.40); PHOSPHORUS 3.4 mg/dL (2.5-4.9); POTASSIUM 3.5 mmol/L (3.5-5.1)
[2024-10-19] MEDS: INSULIN GLARgine 100 UNITS/ML 10 ML VIAL SQ SCH (08:12)
[2024-10-19] MEDS ORDERED: PoTASSium chloRIDE 20MEQ/100ML 100 ML IV SCH (09:00)
[2024-10-19] MEDS ORDERED: HEParin-NS 1,000 UNIT/500 ML 500 ML IV ONE ×2 (11:00→11:14)
[2024-10-19] MEDS ORDERED: LIDOCAINE HCL 400MG/20ML VIAL ONE (11:00)
[2024-10-19] MEDS ORDERED: IOHEXOL-350 50ML VIAL IV ONE ×2 (11:04→11:15)
[2024-10-19] MEDS ORDERED: LIDOCAINE HCL 1% MDV 50ML VIAL ONE (11:14)
[2024-10-19] MEDS ORDERED: MIDAZOLAM HCL 1 MG/ML 2ML VIAL ONE (11:36)
[2024-10-19] MEDS ORDERED: FENTanyl CITRate PF 50 MCG/1 ML 2ML VIAL ONE (11:36)
--- NOTE | 2024-10-19 12:20 | NUR ---
NON CDL DRIVER RECEIVED PATIENT FROM PROCEDURE. PATIENT ORIENTATED TO ROOM. BED PUT AT LOWEST POSITION. PATIENT HAS DRESSING TO RIGHT IJ, DRESSING INTACT WITH NO EDEMA ON SURROUNDING SKIN. PATIENTS VITAL SIGNS STARTED AND WITHIN RANGE. ANSWERED ANY QUESTIONS OR CONCERNS PATIENT HAD. CALL LIGHT PLACED WITHIN REACH.
--- NOTE | 2024-10-19 13:05 | PN ---
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 She had coli annual anastomosis perform the past, she was evaluated colorectal surgeon and offered closure of ileostomy with creation of colostomy, postop day 4. 10/18 Patient was evaluated in the room, discussed Doppler study results, remarkable for DVT in the mid and distal left superficial femoral vein. As per patient this has been ongoing a she is currently on anticoagulation with Eliquis 2.5 mg p.o. b.i.d. but currently on hold at this time. Plan is for IVCF via IR for tomorrow. Patient verbalized understanding. She will continue current management, c/w IV iron per hematology. 10/19 patient was seen by nurse practitioner and physician during rounding in room 302 lying in the bed. Patient is s/p ileostomy closure on 10/14/2024. Venous Doppler was positive for DVT. Patient is pending IVC filter by IR today. UA was positive for leukocytosis final urine culture is negative. CO2 today 25. In the meantime we are going to continue to monitor patient. A.m. labs. REVIEW OF SYSTEMS CONSTITUTIONAL: Denies fevers, chills, or night sweats. No unintentional weight loss reported. NEUROLOGICAL: Denies headache, amaurosis fugax, motor weakness, sensory deficit, vertigo/spinning sensation, gait abnormalities, or tremors. ENT: No hearing loss, otalgia, otorrhea, rhinitis, rhinorrhea, hoarseness, or sore throat. CARDIOVASCULAR: Denies any exertional angina, dyspnea on exertion, orthopnea, paroxysmal nocturnal dyspnea, palpitations, life-threatening arrhythmias, claudication. PULMONARY: Denies any shortness of breath, cough, phlegm/sputum, hemoptysis, pleuritic chest pain. SLEEP: Denies morning headaches, daytime somnolence or napping. Denies difficulty falling asleep, staying asleep, waking from sleep. Denies knowledge of snoring. GASTROINTESTINAL: Denies any type of dysphagia to either liquids or solids. Denies nausea, vomiting, pyrosis, early satiety, abdominal pain, diarrhea, constipation, or changes in stool consistency or caliber. Denies coffee-ground emesis, hematemesis, hematochezia, or melanotic stools. GENITOURINARY: Denies frequency, urgency, nocturia, hematuria or incontinence (Storage/Irritative symptoms.) Low urinary stream, straining to void, urinary intermittency or hesitancy, splitting of the voiding stream, terminal dribbling. ENDOCRINOLOGIC: Denies polyuria, polydipsia, polyphagia or heat/cold intolerances. HEMATOLOGIC: Denies thrombophilia/previous clots, or coagulopathy/bleeding disorders. ONCOLOGIC: Denies personal history of malignancy. DERMATOLOGIC: Denies rashes or pruritus. PSYCHIATRIC: Denies any suicidal or homicidal ideation. Denies hallucinations. PHYSICAL EXAM GENERAL APPEARANCE: The patient is awake, alert, and oriented, in no acute cardiopulmonary distress. Patient sleeping at bedside but is able to follow conversations. Patient is obese NEUROLOGICAL: Cranial nerves II-XII grossly intact. Motor is 5/5 in bilateral upper and lower extremities proximal to distal. No sensory deficits. HEENT: Face is symmetric. Pupils are equal and reactive. Extraocular movements are intact. NECK: Supple. No JVD. No thyromegaly. No submental, submandibular, pre- /postauricular, occipital or supraclavicular lymphadenopathy. CHEST: Normal chest expansion. No Telemetry. LUNGS: Absence of any rales, rhonchi or any wheezing. CARDIOVASCULAR: Regular. S1 and S2 normal. No appreciable rubs, murmurs or gallops. ABDOMEN: Soft, nontender, and nondistended. There is no rebound, voluntary guarding, or rigidity. : Deferred. No Armijo. EXTREMITIES: Non-edematous and not cyanotic. No clubbing. Good capillary refill. SKIN: No skin breakdown. Vital Signs (last 8hr) Date Time Temp Pulse Resp B/P (MAP) Pulse Ox O2 Delivery O2 Flow Rate FiO2 10/19/24 12:00 98.2 70 16 107/62 98 21 10/19/24 08:00 96 Room Air* 0 21 10/19/24 08:00 98.2 76 16 107/63 96 Room Air 21 LABS: Laboratory: Test 10/19/24 06:18 10/18/24 11:29 Range/Units White Blood Count 7.7 4.8-10.8 K/uL Red Blood Count 2.75 L 4.00-5.50 MIL/uL Hemoglobin 7.9 L 12.0-16.0 g/dL Hematocrit 25.6 L 36-48 % Mean Corpuscular Volume 93.1 79-99 fL Mean Corpuscular Hemoglobin 28.7 27.0-33.0 pg Mean Corpuscular Hemoglobin Concent 30.9 L 32.0-36.0 g/dL Red Cell Distribution Width 16.7 H 11.0-15.5 % Platelet Count 265 130-400 K/uL Mean Platelet Volume 9.3 7.5-10.5 fL Nucleated Red Blood Cells 0.3 H 0.0-0.19 % Prothrombin Time 11.1 9.6-11.6 SEC Prothromb Time International Ratio 0.99 0.85-1.15 Sodium Level 148 H 136-145 mmol/L Potassium Level 3.5 3.5-5.1 mmol/L Chloride Level 114 H 101-111 mmol/L Carbon Dioxide Level 25 21-32 mmol/L Blood Urea Nitrogen 25 H 7-18 mg/dL Creatinine 1.9 H 0.5-1.0 mg/dL Glomerular Filtration Rate Calc 32 >90 mL/min Random Glucose 73 70-105 mg/dL Total Calcium 8.6 8.5-10.1 mg/dL Phosphorus Level 3.4 2.5-4.9 mg/dL Magnesium Level 1.80 1.80-2.40 mg/dL Blood Gas Specimen Type Venous Arterial Blood Oxygen Saturation 87.3 L 94.0-98.0 % Venous Blood pH 7.415 7.320-7.430 Venous Blood pCO2 at Patient Temp 35 L 38-54 Venous Blood pO2 at Patient Temp 52.7 H 23.0-48.0 mmHg Venous Blood HCO3 21.8 L 22.0-29.0 Venous Blood Base Excess -2.4 L -2.0-3.0 Venous Blood Total Hemoglobin 8.4 L 12.0-16.0 Sodium (Blood Gas) 140 136-145 MMOL/L Bedside Potassium (Blood Gas) 3.5 3.4-4.5 MMOL/L Bedside Chloride (Blood Gas) 113 H 98-107 MMOL/L Bedside Glucose (Blood Gas) 101 H 65-95 MG/DL Bedside Ionized Calcium (Blood Gas) 1.18 1.15-1.33 MMOL/L Bedside Lactic Acid (Blood Gas) 1.22 H 0.36-0.75 MMOL/L Blood Gas Temperature 37.0 35.5-37.0 CELSIUS Blood Gas Vent Mode RA ROOM AIR FiO2 21.0 % Blood Gas Specimen Comment ALONZO Current Medications Medications (Trade) Dose Ordered Sig/Chan Route PRN Reason Start Time Stop Time Status Last Admin Dose Admin Acetaminophen (TYLenol 325MG TAB) 650 mg Q4H PRN PO TEMPERATURE GREATER THAN 101 10/14/24 13:00 11/13/24 12:59 10/18/24 13:32 650 MG Acetaminophen/ Hydrocodone Bitart (NORco 5/325MG) 1 tab Q4H PRN PO MODERATE PAIN (4-6) 10/14/24 13:00 10/19/24 12:59 10/19/24 06:35 1 TAB Dextrose (D50w) 50 ml AD PRN IV HYPOGLYCEMIA PROTOCOL 10/14/24 17:00 11/13/24 16:59 Famotidine (Pepcid 20mg Vial) 20 mg Q24H IV 10/14/24 21:00 11/13/24 20:59 10/18/24 20:06 20 MG Ferric Sodium Gluconate Complex 125 mg/Sodium Chloride 110 ml @ 110 mls/hr DAILY IV 10/17/24 09:00 10/19/24 20:00 10/19/24 08:12 110 MLS/HR Glucagon (Glucagon 1mg Kit) 1 mg AD PRN IM HYPOGLYCEMIA PROTOCOL 10/14/24 17:00 11/13/24 16:59 Insulin Glargine (LANtus 100 UNITS/ML 10 ML VIAL) 14 units HS SQ 10/14/24 21:00 10/15/24 07:31 DC 10/14/24 20:59 14 UNITS Insulin Glargine (LANtus 100 UNITS/ML 10 ML VIAL) 20 units DAILY SQ 10/15/24 09:00 10/15/24 21:45 DC Insulin Glargine (LANtus 100 UNITS/ML 10 ML VIAL) 25 units DAILY SQ 10/16/24 09:00 10/16/24 06:23 DC Insulin Glargine (LANtus 100 UNITS/ML 10 ML VIAL) 25 units DAILY SQ 10/19/24 09:00 11/18/24 08:59 Insulin Glargine (LANtus 100 UNITS/ML 10 ML VIAL) 35 units DAILY SQ 10/16/24 09:00 10/18/24 19:23 DC 10/18/24 08:30 35 UNITS Insulin Human Regular (humuLIN R 100 UNIT/ML 3ML) AD PRN SQ SLIDING SCALE COVERAGE 10/14/24 13:00 10/14/24 16:43 DC Insulin Human Regular (humuLIN R 100 UNIT/ML 3ML) 5 unit TIDAC SQ 10/15/24 11:30 10/15/24 21:45 DC 10/15/24 17:23 5 UNIT Insulin Human Regular (humuLIN R 100 UNIT/ML 3ML) 8 unit TIDAC SQ 10/16/24 07:30 10/16/24 21:52 DC 10/16/24 17:49 8 UNIT Insulin Human Regular (humuLIN R 100 UNIT/ML 3ML) 10 unit TIDAC SQ 10/18/24 11:30 11/17/24 11:29 10/18/24 13:20 10 UNIT Insulin Human Regular (humuLIN R 100 UNIT/ML 3ML) 14 unit TIDAC SQ 10/17/24 07:30 10/18/24 06:50 DC 10/17/24 17:18 14 UNIT Insulin Human Regular (humuLIN R 100 UNIT/ML 3ML) INSULIN SLIDING SCAL... ACHS SQ 10/14/24 21:00 10/17/24 17:18 DC 10/16/24 20:57 16 UNIT Insulin Human Regular (humuLIN R 100 UNIT/ML 3ML) INSULIN SLIDING SCAL... ACHS SQ 10/17/24 21:00 11/16/24 20:59 Morphine Sulfate (morPHINE 2MG SYG) 2 mg Q3H PRN IV MODERATE PAIN (4-6) IF NPO 10/14/24 13:00 10/21/24 12:59 10/19/24 00:42 2 MG Morphine Sulfate (morPHINE 4MG SYG) 4 mg Q3H PRN IV SEVERE PAIN (7-10) 10/14/24 13:00 10/21/24 12:59 10/16/24 05:11 4 MG Ondansetron HCl (zoFRAN 4MG INJ) 4 mg Q4H PRN IVP NAUSEA 10/14/24 13:00 11/13/24 12:59 Potassium Chloride/Dextrose/ Sod Cl 1,000 ml @ 75 mls/hr [id number] IV 10/14/24 13:00 10/14/24 16:43 DC Potassium Chloride 100 ml @ 50 mls/hr PROTOCOL IV 10/19/24 09:00 11/18/24 08:59 Sodium Bicarbonate (Sodium Bicarbonate) 650 mg TID PO 10/15/24 14:00 11/14/24 13:59 10/19/24 08:17 650 MG Sodium Chloride 1,000 ml @ 75 mls/hr [id number] IV 10/14/24 17:00 11/13/24 16:59 10/19/24 04:39 75 MLS/HR DIAGNOSTICS / RADIOLOGY: [ ] ASSESSMENT: + DVT to right mid distal femoral vein, POA S/p IVC filter by IR 10/19/2024 Acute Metabolic acidosis, POA Ileostomy status status post robotic assisted ileostomy closure with small bowel resection and robotic creation of transverse colostomy History of CKD stage 4 Diabetes mellitus type 2 with associated hyperglycemia Hypertension Obesity BMI 37.0 Hyperlipidemia PLAN: - continue with admission and medical-surgical unit -plan is for IVCF via IR, once placed, she will continue to resume Eliquis 2.5 mg PO BID once cleared from surgeon, follow up with PCP for adjustment -continue with H&H monitoring, appreciate GI recommendation and Hematology recommendation -She will continue Ferrlicit IV x 3 days (last day tomorrow) -continue with postoperative recommendations per surgery. -C/w pain management -closely monitor creatinine. We will repeat labs in the morning Continue with GI and DVT prophylaxis (currently on SCD) Dr. Lees spoke with patient at length regarding DVT to right leg. She is in agreeable for IVCF to be placed by IR in am. Patient needs her AC to be resumed once cleared by surgeon, AC to be adjusted by PCP as the current dose is subtherapeutic. Patient verbalized understanding and is in agreement with the plan ATTESTATION BY PHYSICIAN I have seen and examined the patient. I reviewed the documentation, medical decision making, and treatment plan as noted by the mid-level provider above. I agree with the findings and plan of care. Milena Guthrie MD, [employer]AT[employer] B [employer] ENGINEER Oct 19, 2024 13:05
--- NOTE | 2024-10-19 14:22 | PN ---
NEPHROLOGY PROGRESS NOTE Date/Time Patient Seen: Oct 19, 2024 SUBJECTIVE: This is a 49-year-old female with past medical history of hypertension, hyperlipidemia, diabetes mellitus type 2, obesity, CKD stage 4 She presented to the hospital secondary to ileostomy status. 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 She had a coloanal anastomosis performed in the past. She was evaluated by colorectal surgeon and offered closure of ileostomy with creation of colostomy. Patient underwent robotic assisted closure of ileostomy with small bowel resection and robotic creation of transverse colostomy. She was noted with elevated BUN/creatinine. We have been consulted for renal failure. Renal function and electrolytes are stable UA positive for proteinuria. Renal ultrasound showed no hydronephrosis. Hemoglobin is stable at 7.9. She continues to be followed by Hematology/Oncology Doppler study results, remarkable for DVT in the mid and distal left superficial femoral vein IVC filter is planned for later today by IR. She was seen in the medical floor, in no acute distress Family at bedside REVIEW OF SYSTEMS: GENERAL: Negative for any nausea, vomiting, fevers, chills, or weight loss. NEUROLOGIC: Negative for any blurry vision, blind spots, double vision, facial asymmetry, dysphagia, dysarthria, hemiparesis, hemisensory deficits, vertigo, ataxia. HEENT: Negative for any head trauma, neck trauma, neck stiffness, photophobia, phonophobia, sinusitis, rhinitis. CARDIAC: Negative for any chest pain, dyspnea on exertion, paroxysmal nocturnal dyspnea, peripheral edema. PULMONARY: Negative for any shortness of breath, wheezing, COPD, or TB exposure. GASTROINTESTINAL: Negative for any abdominal pain, nausea, vomiting, bright red blood per rectum, melena. GENITOURINARY: Negative for any dysuria, hematuria, incontinence. INTEGUMENTARY: Negative for any rashes, cuts, insect bites. RHEUMATOLOGIC: Negative for any joint pains, photosensitive rashes, history of vasculitis or kidney problems. HEMATOLOGIC: Negative for any abnormal bruising, frequent infections or bleeding. PHYSICAL EXAM: GENERAL: Alert and oriented x 3. No acute distress. Well-nourished. EYES: EOMI. Anicteric. HENT: Moist mucous membranes. No scleral icterus. No cervical lymphadenopathy. LUNGS: Clear to auscultation bilaterally. No accessory muscle use. CARDIOVASCULAR: Regular rate and rhythm. No murmur. No JVD. ABDOMEN: Soft, non-tender and non-distended. No palpable masses. EXTREMITIES: No edema. Non-tender.?SKIN: No rashes or lesions. Warm. NEUROLOGIC: No focal neurological deficits. CN II-XII grossly intact, but not individually tested. PSYCHIATRIC: Cooperative. Appropriate mood and affect. LABORATORY: [ ] Hematology Labs: Test 10/19/24 06:18 Range/Units White Blood Count 7.7 4.8-10.8 K/uL Red Blood Count 2.75 L 4.00-5.50 MIL/uL Hemoglobin 7.9 L 12.0-16.0 g/dL Hematocrit 25.6 L 36-48 % Mean Corpuscular Volume 93.1 79-99 fL Mean Corpuscular Hemoglobin 28.7 27.0-33.0 pg Mean Corpuscular Hemoglobin Concent 30.9 L 32.0-36.0 g/dL Red Cell Distribution Width 16.7 H 11.0-15.5 % Platelet Count 265 130-400 K/uL Mean Platelet Volume 9.3 7.5-10.5 fL Nucleated Red Blood Cells 0.3 H 0.0-0.19 % Chemistry Labs: Test 10/19/24 06:18 Range/Units Sodium Level 148 H 136-145 mmol/L Potassium Level 3.5 3.5-5.1 mmol/L Chloride Level 114 H 101-111 mmol/L Carbon Dioxide Level 25 21-32 mmol/L Blood Urea Nitrogen 25 H 7-18 mg/dL Creatinine 1.9 H 0.5-1.0 mg/dL Glomerular Filtration Rate Calc 32 >90 mL/min Random Glucose 73 70-105 mg/dL Total Calcium 8.6 8.5-10.1 mg/dL Phosphorus Level 3.4 2.5-4.9 mg/dL Magnesium Level 1.80 1.80-2.40 mg/dL Coagulation Labs: Test 10/19/24 06:18 Range/Units Prothrombin Time 11.1 9.6-11.6 SEC Prothromb Time International Ratio 0.99 0.85-1.15 DIAGNOSTICS / RADIOLOGY: REASON: history of left leg DVT ORDERING PHYSICIAN: YAS ELIZONDO MD PROCEDURE: VENOUS ALPA - US VENOUS DOPPLER BILATERAL US VENOUS DOPPLER BILATERAL REASON: history of left leg DVT COMPARISON: None Technique: Bilateral venous doppler ultrasound was performed with spectral analysis and color flow imaging technique. FINDINGS: There is occlusive thrombus in the midportion of the left superficial femoral vein, there is some nonocclusive thrombus in the distal femoral vein. Common femoral vein appears patent as do the greater saphenous, profunda femoris and popliteal veins. Proximal calf veins. Unremarkable. Right-sided you have shows normal findings throughout. There is no deep venous thrombosis in the right lower extremity. IMPRESSION: 1. Deep venous thrombosis in the mid and distal left superficial femoral vein. 2. Normal findings on the right. DICTATED BY: CARLO FRANK MD DATE: 10/17/24 4662 REASON: renal failure ORDERING PHYSICIAN: YAS ELIZONDO MD PROCEDURE: RENAL - US RENAL SONOGRAM US RENAL SONOGRAM HISTORY: Renal failure COMPARISON: None TECHNIQUE: Renal and bladder ultrasound study was performed. FINDINGS: The right kidney measures 9.5 x 4.4 x 4.2 cm. The left kidney measures 8 x 4 x 5.1 cm. There is left renal pelvis fullness. No evidence of hydronephrosis is seen of either kidney. Both kidneys are seen. Bladder is moderately distended. Bladder wall measures 5 mm. Prevoid bladder volume is 702 cc. IMPRESSION: 1. No hydronephrosis is seen. Left renal pelvis fullness is seen. DICTATED BY: HERLINDA ALBERTS MD DATE: 10/16/24 3743 ASSESSMENT: Renal failure Metabolic acidosis Anemia Ileostomy status status post robotic assisted ileostomy closure with small bowel resection and robotic creation of transverse colostomy Diabetes mellitus type 2 Hypertension Obesity BMI 37.0 Hyperlipidemia PLAN: Labs, diagnostic, radiologic exams reviewed and interpreted by myself and supervising physician. We have reviewed external records in detail There is no need for renal replacement therapy at this time. Defer anemia management to Hematology/Oncology Require close monitoring of renal function and electrolytes Order CBC, CMP, and electrolytes in am BiPAP as necessary, for respiratory distress Monitor blood pressure adjust medication doses as needed Avoid hypotensive episodes May use Dilaudid 0.5 mg IV every 6 hours as needed for severe pain Monitor blood sugars Strict intake, output, and daily weight should be monitored Please renally adjust medications Avoid nephrotoxic and nonsteroidal drugs Avoid contrast if possible Will continue to monitor renal function, anemia, electrolytes Treatment plan discussed with patient Questions were answered We have discussed with the other team physicians in detail about the care plan We will continue to monitor the patient closely ATTESTATION BY PHYSICIAN I have seen and examined the patient. I reviewed the documentation, medical decision making, and treatment plan as noted by the mid-level provider above. I agree with the findings and plan of care. JOYCE SANTOS MD, [facility] Oct 19, 2024 14:22
--- NOTE | 2024-10-19 17:19 | PN ---
COLORECTAL PROGRESS NOTE Date of Visit: Oct 19, 2024 Time of Visit: 17:19 Events / Notes: Pt with no n.v. Tolerating diet. passing flatus in appliance. Passing formed stool via colostomy. Review of Systems: CONSTITUTIONAL: No malaise or change in sensation of wellbeing. ENMT: No rhinorrhea, otorrhea, sinus pain, ear ache. CARDIOVASCULAR: No angina, palpitations, orthopnea or paroxysmal dyspnea. RESPIRATORY: No SOB. GASTROINTESTINAL: No abdominal pain, nausea, vomiting, diarrhea, hematemesis, melena or change in the patient's habitual bowel movements consistency/number. GENITOURINARY: No dysuria, hematuria or change in bladder continence. MUSCULOSKELETAL: No new muscle pain or decrease in muscular strength. No new joint swelling, redness or tenderness. SKIN: No new rash. Physical Exam: GEN: Awake, alert, oriented in person, time and place, and in no acute distress. HEENT: No rhinorrhea. Oral pharyngeal mucosa is pink, moist and within normal limits. CHEST: Inspection, palpation of the chest were unremarkable. Lung auscultation revealed normal breath sounds bilaterally. CARDIAC: Heart sounds are regular. ABD: Soft, non-tender and not distended. No peritoneal signs on palpation. No organomegaly. Normal bowel sounds. stoma viable with formed stool. Stoma site incision D&I. 2 inches of wick packing removed. Incision cleaned with NS and dressing changed. EXT: No cyanosis or clubbing. No edema. SKIN: Intact. No rashes. JOINTS: No evidence of synovitis or acute arthritis. NEURO: Alert and oriented to name, place and person. Cranial nerve examination is unremarkable. No focal motor deficits. Normal speech.Strength is normal. Vital Signs (last 8hr) Date Time Temp Pulse Resp B/P (MAP) Pulse Ox O2 Delivery O2 Flow Rate FiO2 10/19/24 14:15 75 16 115/64 98 Room Air 10/19/24 13:45 98.1 75 16 118/62 100 Room Air 10/19/24 13:15 72 16 91/59 94 Room Air 21 10/19/24 13:00 73 16 94/52 94 Room Air 21 10/19/24 12:45 74 16 97 Room Air 10/19/24 12:30 71 16 98/63 89 Room Air 10/19/24 12:15 98.2 75 16 100/64 94 Room Air 21 10/19/24 12:00 98.2 70 16 107/62 98 21 Laboratory: [ ] Laboratory: Test 10/19/24 06:18 10/18/24 11:29 Range/Units White Blood Count 7.7 4.8-10.8 K/uL Red Blood Count 2.75 L 4.00-5.50 MIL/uL Hemoglobin 7.9 L 12.0-16.0 g/dL Hematocrit 25.6 L 36-48 % Mean Corpuscular Volume 93.1 79-99 fL Mean Corpuscular Hemoglobin 28.7 27.0-33.0 pg Mean Corpuscular Hemoglobin Concent 30.9 L 32.0-36.0 g/dL Red Cell Distribution Width 16.7 H 11.0-15.5 % Platelet Count 265 130-400 K/uL Mean Platelet Volume 9.3 7.5-10.5 fL Nucleated Red Blood Cells 0.3 H 0.0-0.19 % Prothrombin Time 11.1 9.6-11.6 SEC Prothromb Time International Ratio 0.99 0.85-1.15 Sodium Level 148 H 136-145 mmol/L Potassium Level 3.5 3.5-5.1 mmol/L Chloride Level 114 H 101-111 mmol/L Carbon Dioxide Level 25 21-32 mmol/L Blood Urea Nitrogen 25 H 7-18 mg/dL Creatinine 1.9 H 0.5-1.0 mg/dL Glomerular Filtration Rate Calc 32 >90 mL/min Random Glucose 73 70-105 mg/dL Total Calcium 8.6 8.5-10.1 mg/dL Phosphorus Level 3.4 2.5-4.9 mg/dL Magnesium Level 1.80 1.80-2.40 mg/dL Blood Gas Specimen Type Venous Arterial Blood Oxygen Saturation 87.3 L 94.0-98.0 % Venous Blood pH 7.415 7.320-7.430 Venous Blood pCO2 at Patient Temp 35 L 38-54 Venous Blood pO2 at Patient Temp 52.7 H 23.0-48.0 mmHg Venous Blood HCO3 21.8 L 22.0-29.0 Venous Blood Base Excess -2.4 L -2.0-3.0 Venous Blood Total Hemoglobin 8.4 L 12.0-16.0 Sodium (Blood Gas) 140 136-145 MMOL/L Bedside Potassium (Blood Gas) 3.5 3.4-4.5 MMOL/L Bedside Chloride (Blood Gas) 113 H 98-107 MMOL/L Bedside Glucose (Blood Gas) 101 H 65-95 MG/DL Bedside Ionized Calcium (Blood Gas) 1.18 1.15-1.33 MMOL/L Bedside Lactic Acid (Blood Gas) 1.22 H 0.36-0.75 MMOL/L Blood Gas Temperature 37.0 35.5-37.0 CELSIUS Blood Gas Vent Mode RA ROOM AIR FiO2 21.0 % Blood Gas Specimen Comment ALONZO Current Medications Medications (Trade) Dose Ordered Sig/Chan Route PRN Reason Start Time Stop Time Status Last Admin Dose Admin Acetaminophen (TYLenol 325MG TAB) 650 mg Q4H PRN PO TEMPERATURE GREATER THAN 101 10/14/24 13:00 11/13/24 12:59 10/18/24 13:32 650 MG Acetaminophen/ Hydrocodone Bitart (NORco 5/325MG) 1 tab Q4H PRN PO MODERATE PAIN (4-6) 10/14/24 13:00 10/19/24 12:59 DC 10/19/24 06:35 1 TAB Dextrose (D50w) 50 ml AD PRN IV HYPOGLYCEMIA PROTOCOL 10/14/24 17:00 11/13/24 16:59 Famotidine (Pepcid 20mg Vial) 20 mg Q24H IV 10/14/24 21:00 11/13/24 20:59 10/18/24 20:06 20 MG Ferric Sodium Gluconate Complex 125 mg/Sodium Chloride 110 ml @ 110 mls/hr DAILY IV 10/17/24 09:00 10/19/24 20:00 10/19/24 08:12 110 MLS/HR Glucagon (Glucagon 1mg Kit) 1 mg AD PRN IM HYPOGLYCEMIA PROTOCOL 10/14/24 17:00 11/13/24 16:59 Insulin Glargine (LANtus 100 UNITS/ML 10 ML VIAL) 14 units HS SQ 10/14/24 21:00 10/15/24 07:31 DC 10/14/24 20:59 14 UNITS Insulin Glargine (LANtus 100 UNITS/ML 10 ML VIAL) 20 units DAILY SQ 10/15/24 09:00 10/15/24 21:45 DC Insulin Glargine (LANtus 100 UNITS/ML 10 ML VIAL) 25 units DAILY SQ 10/16/24 09:00 10/16/24 06:23 DC Insulin Glargine (LANtus 100 UNITS/ML 10 ML VIAL) 25 units DAILY SQ 10/19/24 09:00 11/18/24 08:59 Insulin Glargine (LANtus 100 UNITS/ML 10 ML VIAL) 35 units DAILY SQ 10/16/24 09:00 10/18/24 19:23 DC 10/18/24 08:30 35 UNITS Insulin Human Regular (humuLIN R 100 UNIT/ML 3ML) AD PRN SQ SLIDING SCALE COVERAGE 10/14/24 13:00 10/14/24 16:43 DC Insulin Human Regular (humuLIN R 100 UNIT/ML 3ML) 5 unit TIDAC SQ 10/15/24 11:30 10/15/24 21:45 DC 10/15/24 17:23 5 UNIT Insulin Human Regular (humuLIN R 100 UNIT/ML 3ML) 8 unit TIDAC SQ 10/16/24 07:30 10/16/24 21:52 DC 10/16/24 17:49 8 UNIT Insulin Human Regular (humuLIN R 100 UNIT/ML 3ML) 10 unit TIDAC SQ 10/18/24 11:30 11/17/24 11:29 10/18/24 13:20 10 UNIT Insulin Human Regular (humuLIN R 100 UNIT/ML 3ML) 14 unit TIDAC SQ 10/17/24 07:30 10/18/24 06:50 DC 10/17/24 17:18 14 UNIT Insulin Human Regular (humuLIN R 100 UNIT/ML 3ML) INSULIN SLIDING SCAL... ACHS SQ 10/14/24 21:00 10/17/24 17:18 DC 10/16/24 20:57 16 UNIT Insulin Human Regular (humuLIN R 100 UNIT/ML 3ML) INSULIN SLIDING SCAL... ACHS SQ 10/17/24 21:00 11/16/24 20:59 Morphine Sulfate (morPHINE 2MG SYG) 2 mg Q3H PRN IV MODERATE PAIN (4-6) IF NPO 10/14/24 13:00 10/19/24 15:59 DC 10/19/24 00:42 2 MG Morphine Sulfate (morPHINE 4MG SYG) 4 mg Q3H PRN IV SEVERE PAIN (7-10) 10/14/24 13:00 10/19/24 15:59 DC 10/19/24 14:37 4 MG Ondansetron HCl (zoFRAN 4MG INJ) 4 mg Q4H PRN IVP NAUSEA 10/14/24 13:00 11/13/24 12:59 Potassium Chloride/Dextrose/ Sod Cl 1,000 ml @ 75 mls/hr [id number] IV 10/14/24 13:00 10/14/24 16:43 DC Potassium Chloride 100 ml @ 50 mls/hr PROTOCOL IV 10/19/24 09:00 11/18/24 08:59 Sodium Bicarbonate (Sodium Bicarbonate) 650 mg TID PO 10/15/24 14:00 11/14/24 13:59 10/19/24 14:39 650 MG Sodium Chloride 1,000 ml @ 75 mls/hr [id number] IV 10/14/24 17:00 11/13/24 16:59 10/19/24 04:39 75 MLS/HR ] Pt stable. Care plan per medicine team. Pt clear for discharge from surgical standpoint. Services transferred to Medical team. Patient may start anticoagulation therapy. Patient is to f/u at [facility] on 10/30/24 at 10:00 am. POC discussed with Dr. De La Paz Transfer of services discussed with Cristela Garcia FNP-C and accepted. LALITA LAWS NP Oct 19, 2024 17:19
--- NOTE | 2024-10-19 19:21 | CONS ---
GASTROENTEROLOGY CONSULTATION NOTE Date of Consultation: Oct 19, 2024 Time of Consultation: 19:20 History of Present Illness: [ ] Review of Systems: CONSTITUTIONAL: No malaise or change in sensation of wellbeing. ENMT: No rhinorrhea, otorrhea, sinus pain, ear ache. CARDIOVASCULAR: No angina, palpitations, orthopnea or paroxysmal dyspnea. RESPIRATORY: No SOB. GASTROINTESTINAL: No abdominal pain, nausea, vomiting, diarrhea, hematemesis, melena or change in the patient's habitual bowel movements consistency/number. GENITOURINARY: No dysuria, hematuria or change in bladder continence. MUSCULOSKELETAL: No new muscle pain or decrease in muscular strength. No new joint swelling, redness or tenderness. SKIN: No new rash. Past Medical History: [ ] Past Surgical History: [ ] Past Social History: [ ] Family History: [ ] Coded Allergies: Penicillins (Unverified Allergy, Unknown, hives, 06/30/24) Physical Exam: GEN: Awake, alert, oriented in person, time and place, and in no acute distress. HEENT: No sinus tenderness. Tympanic membranes were not examined. No rhinorrhea. Oral pharyngeal mucosa is pink, moist and within normal limits. Neck is supple with no cervical lymphadenopathy, thyromegaly or JVD. CHEST: Inspection, palpation and percussion of the chest were unremarkable. Lung auscultation revealed normal breath sounds bilaterally. CARDIAC: PMI is within normal limits. Heart sounds are regular. Normal S1, S2. No gallop or murmur. ABD: Soft, non-tender and not distended. No peritoneal signs on palpation. No organomegaly. Normal bowel sounds. EXT: No cyanosis or clubbing. No edema. SKIN: Intact. No rashes. JOINTS: No evidence of synovitis or acute arthritis. NEURO: Alert and oriented to name, place and person. Cranial nerve examination is unremarkable. No focal motor deficits. Normal speech. Gait is normal. Strength is normal. Vital Sign (Last 24 Hours) 10/19/24 10/19/24 10/19/24 08:00 13:45 14:15 Temp 98.1 Pulse 75 Resp 16 B/P (MAP) 115/64 Pulse Ox 98 O2 Delivery Room Air O2 Flow Rate 0 FiO2 21 Intake & Output (last 24hrs) 10/18/24 10/18/24 10/19/24 15:00 23:00 07:00 Intake Total 100 ml 0 ml 900.0 ml Output Total 200 ml Balance 100 ml -200 ml 900.0 ml Laboratory: [ ] Laboratory: Test 10/19/24 06:18 10/18/24 11:29 Range/Units White Blood Count 7.7 4.8-10.8 K/uL Red Blood Count 2.75 L 4.00-5.50 MIL/uL Hemoglobin 7.9 L 12.0-16.0 g/dL Hematocrit 25.6 L 36-48 % Mean Corpuscular Volume 93.1 79-99 fL Mean Corpuscular Hemoglobin 28.7 27.0-33.0 pg Mean Corpuscular Hemoglobin Concent 30.9 L 32.0-36.0 g/dL Red Cell Distribution Width 16.7 H 11.0-15.5 % Platelet Count 265 130-400 K/uL Mean Platelet Volume 9.3 7.5-10.5 fL Nucleated Red Blood Cells 0.3 H 0.0-0.19 % Prothrombin Time 11.1 9.6-11.6 SEC Prothromb Time International Ratio 0.99 0.85-1.15 Sodium Level 148 H 136-145 mmol/L Potassium Level 3.5 3.5-5.1 mmol/L Chloride Level 114 H 101-111 mmol/L Carbon Dioxide Level 25 21-32 mmol/L Blood Urea Nitrogen 25 H 7-18 mg/dL Creatinine 1.9 H 0.5-1.0 mg/dL Glomerular Filtration Rate Calc 32 >90 mL/min Random Glucose 73 70-105 mg/dL Total Calcium 8.6 8.5-10.1 mg/dL Phosphorus Level 3.4 2.5-4.9 mg/dL Magnesium Level 1.80 1.80-2.40 mg/dL Blood Gas Specimen Type Venous Arterial Blood Oxygen Saturation 87.3 L 94.0-98.0 % Venous Blood pH 7.415 7.320-7.430 Venous Blood pCO2 at Patient Temp 35 L 38-54 Venous Blood pO2 at Patient Temp 52.7 H 23.0-48.0 mmHg Venous Blood HCO3 21.8 L 22.0-29.0 Venous Blood Base Excess -2.4 L -2.0-3.0 Venous Blood Total Hemoglobin 8.4 L 12.0-16.0 Sodium (Blood Gas) 140 136-145 MMOL/L Bedside Potassium (Blood Gas) 3.5 3.4-4.5 MMOL/L Bedside Chloride (Blood Gas) 113 H 98-107 MMOL/L Bedside Glucose (Blood Gas) 101 H 65-95 MG/DL Bedside Ionized Calcium (Blood Gas) 1.18 1.15-1.33 MMOL/L Bedside Lactic Acid (Blood Gas) 1.22 H 0.36-0.75 MMOL/L Blood Gas Temperature 37.0 35.5-37.0 CELSIUS Blood Gas Vent Mode RA ROOM AIR FiO2 21.0 % Blood Gas Specimen Comment ALONZO Current Medications Medications (Trade) Dose Ordered Sig/Chan Route PRN Reason Start Time Stop Time Status Last Admin Dose Admin Acetaminophen (TYLenol 325MG TAB) 650 mg Q4H PRN PO TEMPERATURE GREATER THAN 101 10/14/24 13:00 11/13/24 12:59 10/18/24 13:32 650 MG Acetaminophen/ Hydrocodone Bitart (NORco 5/325MG) 1 tab Q4H PRN PO MODERATE PAIN (4-6) 10/14/24 13:00 10/19/24 12:59 DC 10/19/24 06:35 1 TAB Dextrose (D50w) 50 ml AD PRN IV HYPOGLYCEMIA PROTOCOL 10/14/24 17:00 11/13/24 16:59 Famotidine (Pepcid 20mg Vial) 20 mg Q24H IV 10/14/24 21:00 11/13/24 20:59 10/18/24 20:06 20 MG Ferric Sodium Gluconate Complex 125 mg/Sodium Chloride 110 ml @ 110 mls/hr DAILY IV 10/17/24 09:00 10/19/24 20:00 10/19/24 08:12 110 MLS/HR Glucagon (Glucagon 1mg Kit) 1 mg AD PRN IM HYPOGLYCEMIA PROTOCOL 10/14/24 17:00 11/13/24 16:59 Insulin Glargine (LANtus 100 UNITS/ML 10 ML VIAL) 14 units HS SQ 10/14/24 21:00 10/15/24 07:31 DC 10/14/24 20:59 14 UNITS Insulin Glargine (LANtus 100 UNITS/ML 10 ML VIAL) 20 units DAILY SQ 10/15/24 09:00 10/15/24 21:45 DC Insulin Glargine (LANtus 100 UNITS/ML 10 ML VIAL) 25 units DAILY SQ 10/16/24 09:00 10/16/24 06:23 DC Insulin Glargine (LANtus 100 UNITS/ML 10 ML VIAL) 25 units DAILY SQ 10/19/24 09:00 11/18/24 08:59 Insulin Glargine (LANtus 100 UNITS/ML 10 ML VIAL) 35 units DAILY SQ 10/16/24 09:00 10/18/24 19:23 DC 10/18/24 08:30 35 UNITS Insulin Human Regular (humuLIN R 100 UNIT/ML 3ML) AD PRN SQ SLIDING SCALE COVERAGE 10/14/24 13:00 10/14/24 16:43 DC Insulin Human Regular (humuLIN R 100 UNIT/ML 3ML) 5 unit TIDAC SQ 10/15/24 11:30 10/15/24 21:45 DC 10/15/24 17:23 5 UNIT Insulin Human Regular (humuLIN R 100 UNIT/ML 3ML) 8 unit TIDAC SQ 10/16/24 07:30 10/16/24 21:52 DC 10/16/24 17:49 8 UNIT Insulin Human Regular (humuLIN R 100 UNIT/ML 3ML) 10 unit TIDAC SQ 10/18/24 11:30 11/17/24 11:29 10/18/24 13:20 10 UNIT Insulin Human Regular (humuLIN R 100 UNIT/ML 3ML) 14 unit TIDAC SQ 10/17/24 07:30 10/18/24 06:50 DC 10/17/24 17:18 14 UNIT Insulin Human Regular (humuLIN R 100 UNIT/ML 3ML) INSULIN SLIDING SCAL... ACHS SQ 10/14/24 21:00 10/17/24 17:18 DC 10/16/24 20:57 16 UNIT Insulin Human Regular (humuLIN R 100 UNIT/ML 3ML) INSULIN SLIDING SCAL... ACHS SQ 10/17/24 21:00 11/16/24 20:59 Morphine Sulfate (morPHINE 2MG SYG) 2 mg Q3H PRN IV MODERATE PAIN (4-6) IF NPO 10/14/24 13:00 10/19/24 15:59 DC 10/19/24 00:42 2 MG Morphine Sulfate (morPHINE 4MG SYG) 4 mg Q3H PRN IV SEVERE PAIN (7-10) 10/14/24 13:00 10/19/24 15:59 DC 10/19/24 14:37 4 MG Ondansetron HCl (zoFRAN 4MG INJ) 4 mg Q4H PRN IVP NAUSEA 10/14/24 13:00 11/13/24 12:59 Potassium Chloride/Dextrose/ Sod Cl 1,000 ml @ 75 mls/hr [id number] IV 10/14/24 13:00 10/14/24 16:43 DC Potassium Chloride 100 ml @ 50 mls/hr PROTOCOL IV 10/19/24 09:00 11/18/24 08:59 Sodium Bicarbonate (Sodium Bicarbonate) 650 mg TID PO 10/15/24 14:00 11/14/24 13:59 10/19/24 14:39 650 MG Sodium Chloride 1,000 ml @ 75 mls/hr [id number] IV 10/14/24 17:00 11/13/24 16:59 10/19/24 04:39 75 MLS/HR Diagnostics / Radiology: [COPY/PASTE HERE IF NO REPORTS PLEASE DELETE SECTION] Assessment: [ ] Plan: [ ] MICHELLE BARROS [employer] SERVICES SPECIALIST Oct 19, 2024 19:20
--- NOTE | 2024-10-19 19:34 | PN ---
endocrinology progress note Date of Service: Oct 19, 2024 , subjective: glucose are stable running low normal, so insulin was decreased patient has dm-2 for many years and use toujeo 10 units daily, humalog 30 units bid and afrezza insulin 20 units before lunch. hba1c 8.6% and she follows for dm-2 with endocrinology in [place]. REVIEW OF SYSTEMS CONSTITUTIONAL: Denies fevers, chills, or night sweats. No unintentional weight loss reported. NEUROLOGICAL: Denies headache, amaurosis fugax, motor weakness, sensory deficit, vertigo/spinning sensation, gait abnormalities, or tremors. ENT: No hearing loss, otalgia, otorrhea, rhinitis, rhinorrhea, hoarseness, or sore throat. CARDIOVASCULAR: Denies any exertional angina, dyspnea on exertion, orthopnea, paroxysmal nocturnal dyspnea, palpitations, life-threatening arrhythmias, claudication. PULMONARY: Denies any shortness of breath, cough, phlegm/sputum, hemoptysis, pleuritic chest pain. SLEEP: Denies morning headaches, daytime somnolence or napping. Denies difficulty falling asleep, staying asleep, waking from sleep. Denies knowledge of snoring. GASTROINTESTINAL: Denies any type of dysphagia to either liquids or solids. Denies nausea, vomiting, pyrosis, early satiety, abdominal pain, diarrhea, constipation, or changes in stool consistency or caliber. Denies coffee-ground emesis, hematemesis, hematochezia, or melanotic stools. GENITOURINARY: Denies frequency, urgency, nocturia, hematuria or incontinence (Storage/Irritative symptoms.) Low urinary stream, straining to void, urinary intermittency or hesitancy, splitting of the voiding stream, terminal dribbling. ENDOCRINOLOGIC: Denies polyuria, polydipsia, polyphagia or heat/cold intolerances. HEMATOLOGIC: Denies thrombophilia/previous clots, or coagulopathy/bleeding disorders. ONCOLOGIC: Denies personal history of malignancy. DERMATOLOGIC: Denies rashes or pruritus. PSYCHIATRIC: Denies any suicidal or homicidal ideation. Denies hallucinations. PAST MEDICAL HISTORY: Hypertension, hyperlipidemia, diabetes mellitus type 2, obesity, CKD stage 4 PAST SURGICAL HISTORY: History of ileostomy, history of colo anal anastomosis PAST SOCIAL HISTORY: Denied smoking, alcohol, drug FAMILY HISTORY: Denied any pertinent family history Coded Allergies: Penicillins (Unverified Allergy, Unknown, hives, 06/30/24) ASSESSMENT: Diabetes mellitus type 2 with associated hyperglycemia patient has dm-2 for many years and use toujeo 10 units daily, humalog 30 units bid and afrezza insulin 20 units before lunch. hba1c 8.6% and she follows for dm-2 with endocrinology in [place]. glucose are stable running low normal, so insulin decreased Ileostomy status status post robotic assisted ileostomy closure with small bowel resection and robotic creation of transverse colostomy History of CKD stage 4 Hypertension Obesity BMI 37.0 Hyperlipidemia PLAN: - decrease lantus to 20 units tid before meals -decrease regular insulin to 7 units qac before meals continue medium dose ssi check glucose q x 6 hourly follows with endocrinology in [place] Vitals/Labs Vital Signs Date Time Temp Pulse Resp B/P (MAP) Pulse Ox O2 Delivery O2 Flow Rate FiO2 10/19/24 14:15 75 16 115/64 98 Room Air 21 10/19/24 13:45 98.1 10/19/24 08:00 0 Laboratory Tests 10/19/24 06:18 Medications Current Medications Ertapenem 50 ml @ 100 mls/hr ONCE ONCE IV; Start 10/14/24 at 06:30; Stop 10/14/24 at 06:59; Status DC Lidocaine HCl 100 mg STK-MED ONCE .ROUTE; Start 10/14/24 at 06:47; Stop 10/14/24 at 06:47; Status DC Propofol 200 mg STK-MED ONCE IV; Start 10/14/24 at 06:47; Stop 10/14/24 at 06:47; Status DC Midazolam HCl 2 mg STK-MED ONCE .ROUTE; Start 10/14/24 at 06:48; Stop 10/14/24 at 06:48; Status DC Rocuronium [place] 50 mg STK-MED ONCE .ROUTE; Start 10/14/24 at 06:48; Stop 10/14/24 at 06:48; Status DC Fentanyl Citrate 100 mcg STK-MED ONCE .ROUTE; Start 10/14/24 at 06:48; Stop 10/14/24 at 06:48; Status DC Sodium Chloride 1,000 ml @ As Directed STK-MED ONCE IV Last administered on 10/14/24at 09:00; Start 10/14/24 at 06:53; Stop 10/14/24 at 06:53; Status DC Dexmedetomidine HCl 200 mcg STK-MED ONCE IV; Start 10/14/24 at 07:11; Stop 10/14/24 at 07:12; Status DC Ketamine HCl 500 mg STK-MED ONCE IJ; Start 10/14/24 at 07:12; Stop 10/14/24 at 07:12; Status DC Scopolamine HBr 1 patch STK-MED ONCE TD; Start 10/14/24 at 07:19; Stop 10/14/24 at 07:19; Status DC Acetaminophen 100 ml @ As Directed STK-MED ONCE .ROUTE; Start 10/14/24 at 07:19; Stop 10/14/24 at 07:20; Status DC Lidocaine/ Epinephrine 20 ml STK-MED ONCE .ROUTE Last administered on 10/14/24at 09:08; Start 10/14/24 at 07:29; Stop 10/14/24 at 07:29; Status DC Bupivacaine HCl 5 mg STK-MED ONCE .ROUTE Last administered on 10/14/24at 09:08; Start 10/14/24 at 07:30; Stop 10/14/24 at 07:30; Status DC Phenylephrine HCl 10 mg STK-MED ONCE IV; Start 10/14/24 at 08:36; Stop 10/14/24 at 08:37; Status DC Dexamethasone Sodium Phosphate 10 mg STK-MED ONCE .ROUTE; Start 10/14/24 at 08:50; Stop 10/14/24 at 08:50; Status DC Ondansetron HCl 4 mg STK-MED ONCE .ROUTE; Start 10/14/24 at 08:50; Stop 10/14/24 at 08:51; Status DC Diphenhydramine HCl 50 mg STK-MED ONCE .ROUTE; Start 10/14/24 at 08:52; Stop 10/14/24 at 08:53; Status DC Ketorolac Tromethamine 30 mg STK-MED ONCE .ROUTE; Start 10/14/24 at 08:52; Stop 10/14/24 at 08:53; Status DC Rocuronium [place] 50 mg STK-MED ONCE .ROUTE; Start 10/14/24 at 09:05; Stop 10/14/24 at 09:05; Status DC Ephedrine Sulfate 50 mg STK-MED ONCE .ROUTE; Start 10/14/24 at 09:12; Stop 10/14/24 at 09:12; Status DC Indocyanine Green 25 mg STK-MED ONCE IJ; Start 10/14/24 at 09:19; Stop 10/14/24 at 09:20; Status DC Phenylephrine HCl 10 mg STK-MED ONCE IV; Start 10/14/24 at 09:36; Stop 10/14/24 at 09:37; Status DC Phenylephrine HCl 10 mg STK-MED ONCE IV; Start 10/14/24 at 09:38; Stop 10/14/24 at 09:38; Status DC Fentanyl Citrate 100 mcg STK-MED ONCE .ROUTE; Start 10/14/24 at 11:02; Stop 10/14/24 at 11:03; Status DC Glycopyrrolate 1 mg STK-MED ONCE .ROUTE; Start 10/14/24 at 11:47; Stop 10/14/24 at 11:48; Status DC Neostigmine Methylsulfate 10 mg STK-MED ONCE IV; Start 10/14/24 at 11:48; Stop 10/14/24 at 11:48; Status DC Insulin Human Regular 300 unit STK-MED ONCE .ROUTE Last administered on 10/14/24at 12:30; Start 10/14/24 at 12:25; Stop 10/14/24 at 12:25; Status DC Meperidine HCl 25 mg STK-MED ONCE .ROUTE Last administered on 10/14/24at 12:38; Start 10/14/24 at 12:35; Stop 10/14/24 at 12:35; Status DC Acetaminophen/ Hydrocodone Bitart 1 tab Q4H PRN PO Last administered on 10/19/24at 06:35; Start 10/14/24 at 13:00; Stop 10/19/24 at 12:59; Status DC Morphine Sulfate 2 mg Q3H PRN IV Last administered on 10/19/24at 00:42; Start 10/14/24 at 13:00; Stop 10/19/24 at 15:59; Status DC Morphine Sulfate 4 mg Q3H PRN IV Last administered on 10/19/24at 14:37; Start 10/14/24 at 13:00; Stop 10/19/24 at 15:59; Status DC Ondansetron HCl 4 mg Q4H PRN IVP; Start 10/14/24 at 13:00; Stop 11/13/24 at 12:59 Acetaminophen 650 mg Q4H PRN PO Last administered on 10/18/24at 13:32; Start 10/14/24 at 13:00; Stop 11/13/24 at 12:59 Famotidine 20 mg Q24H IV Last administered on 10/18/24at 20:06; Start 10/14/24 at 21:00; Stop 11/13/24 at 20:59 Insulin Human Regular AD PRN SQ; Start 10/14/24 at 13:00; Stop 10/14/24 at 16:43; Status DC Potassium Chloride/Dextrose/ Sod Cl 1,000 ml @ 75 mls/hr [id number] IV; Start 10/14/24 at 13:00; Stop 10/14/24 at 16:43; Status DC Sodium Chloride 1,000 ml @ 75 mls/hr [id number] IV Last administered on 10/19/24at 04:39; Start 10/14/24 at 17:00; Stop 11/13/24 at 16:59 Insulin Glargine 14 units HS SQ Last administered on 10/14/24at 20:59; Start 10/14/24 at 21:00; Stop 10/15/24 at 07:31; Status DC Insulin Human Regular INSULIN SLIDING SCAL... ACHS SQ Last administered on 10/16/24at 20:57; Start 10/14/24 at 21:00; Stop 10/17/24 at 17:18; Status DC Dextrose 50 ml AD PRN IV; Start 10/14/24 at 17:00; Stop 11/13/24 at 16:59 Glucagon 1 mg AD PRN IM; Start 10/14/24 at 17:00; Stop 11/13/24 at 16:59 Insulin Glargine 20 units DAILY SQ; Start 10/15/24 at 09:00; Stop 10/15/24 at 21:45; Status DC Insulin Human Regular 5 unit TIDAC SQ Last administered on 10/15/24at 17:23; Start 10/15/24 at 11:30; Stop 10/15/24 at 21:45; Status DC Sodium Bicarbonate 50 meq ONCE ONCE IV; Start 10/15/24 at 12:00; Stop 10/15/24 at 12:04; Status DC Sodium Bicarbonate 650 mg TID PO Last administered on 10/19/24at 14:39; Start 10/15/24 at 14:00; Stop 11/14/24 at 13:59 Insulin Glargine 25 units DAILY SQ; Start 10/16/24 at 09:00; Stop 10/16/24 at 06:23; Status DC Insulin Human Regular 8 unit TIDAC SQ Last administered on 10/16/24at 17:49; Start 10/16/24 at 07:30; Stop 10/16/24 at 21:52; Status DC Insulin Glargine 35 units DAILY SQ Last administered on 10/18/24at 08:30; Start 10/16/24 at 09:00; Stop 10/18/24 at 19:23; Status DC Metoclopramide HCl 10 mg ONCE ONCE IVP Last administered on 10/16/24at 09:13; Start 10/16/24 at 09:00; Stop 10/16/24 at 09:01; Status DC Dexamethasone 8 mg ONCE ONCE PO Last administered on 10/16/24at 09:13; Start 10/16/24 at 09:00; Stop 10/16/24 at 09:01; Status DC Potassium Chloride 100 ml @ 50 mls/hr ONCE ONCE IV Last administered on 10/16/24at 11:23; Start 10/16/24 at 11:00; Stop 10/16/24 at 12:59; Status DC Potassium Chloride 40 meq ONCE ONCE PO; Start 10/16/24 at 13:00; Stop 10/16/24 at 13:01; Status DC Sodium Bicarbonate 50 meq ONCE ONCE IV Last administered on 10/16/24at 14:50; Start 10/16/24 at 13:00; Stop 10/16/24 at 13:01; Status DC Ferric Sodium Gluconate Complex 125 mg/Sodium Chloride 110 ml @ 110 mls/hr DAILY IV Last administered on 10/19/24at 08:12; Start 10/17/24 at 09:00; Stop 10/19/24 at 20:00 Insulin Human Regular 14 unit TIDAC SQ Last administered on 10/17/24at 17:18; Start 10/17/24 at 07:30; Stop 10/18/24 at 06:50; Status DC Potassium Chloride 40 meq ONCE ONCE PO Last administered on 10/17/24at 10:47; Start 10/17/24 at 09:30; Stop 10/17/24 at 09:31; Status DC Insulin Human Regular INSULIN SLIDING SCAL... ACHS SQ; Start 10/17/24 at 21:00; Stop 11/16/24 at 20:59 Insulin Human Regular 10 unit TIDAC SQ Last administered on 10/18/24at 13:20; Start 10/18/24 at 11:30; Stop 11/17/24 at 11:29 Docusate Sodium 100 mg ONCE ONCE PO Last administered on 10/18/24at 14:20; Start 10/18/24 at 14:00; Stop 10/18/24 at 14:01; Status DC Insulin Glargine 25 units DAILY SQ; Start 10/19/24 at 09:00; Stop 11/18/24 at 08:59 Potassium Chloride 100 ml @ 50 mls/hr PROTOCOL IV; Start 10/19/24 at 09:00; Stop 11/18/24 at 08:59 Lidocaine HCl 20 ml STK-MED ONCE .ROUTE; Start 10/19/24 at 11:00; Stop 10/19/24 at 11:00; Status DC Heparin Sodium/ Sodium Chloride 500 ml @ As Directed STK-MED ONCE IV; Start 10/19/24 at 11:00; Stop 10/19/24 at 11:00; Status DC Iohexol 50 ml STK-MED ONCE IV; Start 10/19/24 at 11:04; Stop 10/19/24 at 11:05; Status DC Lidocaine HCl 50 ml STK-MED ONCE .ROUTE; Start 10/19/24 at 11:14; Stop 10/19/24 at 11:14; Status DC Heparin Sodium/ Sodium Chloride 500 ml @ As Directed STK-MED ONCE IV; Start 10/19/24 at 11:14; Stop 10/19/24 at 11:15; Status DC Iohexol 50 ml STK-MED ONCE IV; Start 10/19/24 at 11:15; Stop 10/19/24 at 11:15; Status DC Fentanyl Citrate 100 mcg STK-MED ONCE .ROUTE; Start 10/19/24 at 11:36; Stop 10/19/24 at 11:36; Status DC Midazolam HCl 2 mg STK-MED ONCE .ROUTE; Start 10/19/24 at 11:36; Stop 10/19/24 at 11:36; Status DC RUBIO FARRIS MD Oct 19, 2024 19:34
[2024-10-19] MEDS: morPHINE 2 MG SYG IVP PRN (20:24)
[2024-10-19] MEDS: ondanSETRON 4MG INJ IVP PRN (20:33)
[2024-10-19] MEDS: HYDROcodone/APAP 5/325 1 TAB TABLET PO PRN (23:18)
[2024-10-20] VITALS: BP 99/55; PULSE 78; RESP 18; TEMP 99.1
--- NOTE | 2024-10-20 01:15 | CCATH ---
PROCEDURES: * IVC gram. * Inferior vena cava filter placement. INDICATION: History of DVT for IVC filter placement. MORTGAGE LOAN COORDINATOR: Dr. Grant. TECHNIQUE: Informed consent was obtained after explaining the procedure and potential complications. The patient was placed supine on the angio table and timeout performed. All elements of maximal sterile barrier technique, including hand hygiene and cutaneous antisepsis were used. The area was prepped and draped in standard sterile fashion. Local anesthesia was applied and under ultrasound guidance, access was gained into the vein with a 21G needle. Then, over a wire, a filter deployment sheath was advanced into the caudal aspect of the inferior vena cava and inferior venacavogram was performed. This was followed by placement of a filter in the inferior vena cava, below the level of the renal veins. Completion venogram was performed. The sheath was removed and hemostasis was achieved at the entry site with manual compression. Sterile dressing was applied. BLOOD LOSS: < 5 mL COMPLICATIONS: None. IMPRESSION: Uneventful placement of infrarenal IVC filter via the right internal jugular vein. TID: [id number] RECEIPT: [id number]
[2024-10-20 04:00] VITALS: BP_SYST 95; BP_SYST 99; BP_DIAS 58; PULSE 74; RESP 18; TEMP 98.1
[2024-10-20 05:50] LABS: BASOPHILS # (AUTO) 0.02 K/uL (0.00-0.20); BASOPHILS % (AUTO) 0.3 % (0.0-5.0); EOSINOPHILS # (AUTO) 0.23 K/uL (0.00-0.70); EOSINOPHILS % (AUTO) 2.9 % (0.0-8.0); HEMATOCRIT 26.2 % (36-48); IMMATURE GRANULOCYTE ABSOLUTE 0.04 K/uL (0-1); LYMPHOCYTES # (AUTO) 1.7 K/uL (1.0-4.8); LYMPHOCYTES % (AUTO) 21.5 % (21.0-51.0); MEAN CORPUSCULAR HEMOGLOBIN 28.8 pg (27.0-33.0); MEAN CORPUSCULAR HGB CONC 29.4 g/dL (32.0-36.0); MEAN CORPUSCULAR VOLUME 98.1 fL (79-99); MONOCYTES # (AUTO) 0.6 K/uL (0.1-1.0); NEUTROPHILS # (AUTO) 5.3 K/uL (1.8-7.7); NEUTROPHILS % (AUTO) 67.8 % (40.0-77.0); NUCLEATED RED BLOOD CELLS 0.3 % (0.0-0.19); PLATELET COUNT (AUTO) 253 K/uL (130-400); RED BLOOD CELL COUNT(AUTO) 2.67 MIL/uL (4.00-5.50); RED CELL DISTRIBUTION WIDTH 16.6 % (11.0-15.5); WHITE BLOOD COUNT (AUTO) 7.8 K/uL (4.8-10.8)
[2024-10-20 06:10] LABS: ALBUMIN 2.2 g/dL (3.5-5.0); BILIRUBIN,TOTAL 0.3 mg/dL (0.2-1.0); CREATININE 1.8 mg/dL (0.5-1.0); MAGNESIUM 1.7 mg/dL (1.80-2.40); POTASSIUM 3.2 mmol/L (3.5-5.1); TOTAL PROTEIN, SERUM 6.1 g/dL (6.0-8.3)
[2024-10-20] MEDS: INSULIN humuLIN R 100 UNIT/ML 3ML SQ SCH (07:00)
[2024-10-20 07:27] VITALS: BP 97/56; PULSE 69; RESP 18; TEMP 98
[2024-10-20 08:00] VITALS: O2SAT 97
--- NOTE | 2024-10-20 08:18 | DS ---
Discharge Summary Hospital Course Summary: DATE OF ADMISSION:[10/13/2024] DATE OF DISCHARGE:[10/20/2024] DISPOSITION:[Home] CONDITION:[Medically stable] CONSULTANTS:[Surgeon, GI, hoop bender tank, dice dealer] FOLLOW UP APPOINTMENTS:[PCP 2 to 3 days. GI 1 to 2 weeks. Canal Driver within one week. Cuff Setter Overlock within 1 to 2 weeks. Surgeon within one week] PROCEDURES:[IVC filter by IR 10/19/2024. 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 She had coli annual anastomosis perform the past, she was evaluated colorectal surgeon and offered closure of ileostomy with creation of colostomy Throughout the hospitalization patient underwent ileostomy closure on 10/16/2024. Patient was also found to have a DVT so IVC filter was placed by IR on 10/19/2024. Patient was cleared to be discharged home. Patient denies any shortness of breath, chest pain, nausea, vomiting or any other discomfort. Patient is also passing gases and having bowel movements. Follow-up with PCP in 2 to 3 days. Follow up with the surgeon within one week. Follow up with hoop bender tank within one week. Follow up with GI within 1 to 2 weeks. follow up with dice dealer within one week. Procedure(s): REVIEW OF SYSTEMS CONSTITUTIONAL: Denies fevers, chills, or night sweats. No unintentional weight loss reported. NEUROLOGICAL: Denies headache, amaurosis fugax, motor weakness, sensory deficit, vertigo/spinning sensation, gait abnormalities, or tremors. ENT: No hearing loss, otalgia, otorrhea, rhinitis, rhinorrhea, hoarseness, or sore throat. CARDIOVASCULAR: Denies any exertional angina, dyspnea on exertion, orthopnea, paroxysmal nocturnal dyspnea, palpitations, life-threatening arrhythmias, claudication. PULMONARY: Denies any shortness of breath, cough, phlegm/sputum, hemoptysis, pleuritic chest pain. SLEEP: Denies morning headaches, daytime somnolence or napping. Denies difficu lty falling asleep, staying asleep, waking from sleep. Denies knowledge of snoring. GASTROINTESTINAL: Denies any type of dysphagia to either liquids or solids. Denies nausea, vomiting, pyrosis, early satiety, abdominal pain, diarrhea, constipation, or changes in stool consistency or caliber. Denies coffee-ground emesis, hematemesis, hematochezia, or melanotic stools. GENITOURINARY: Denies frequency, urgency, nocturia, hematuria or incontinence (Storage/Irritative symptoms.) Low urinary stream, straining to void, urinary intermittency or hesitancy, splitting of the voiding stream, terminal dribbling. ENDOCRINOLOGIC: Denies polyuria, polydipsia, polyphagia or heat/cold intol erances. HEMATOLOGIC: Denies thrombophilia/previous clots, or coagulopathy/bleeding disorders. ONCOLOGIC: Denies personal history of malignancy. DERMATOLOGIC: Denies rashes or pruritus. PSYCHIATRIC: Denies any suicidal or homicidal ideation. Denies hallucinations. PHYSICAL EXAM GENERAL APPEARANCE: The patient is awake, alert, and oriented, in no acute cardiopulmonary distress. Patient sleeping at bedside but is able to follow conversations. Patient is obese NEUROLOGICAL: Cranial nerves II-XII grossly intact. Motor is 5/5 in bilateral upper and lower extremities proximal to distal. No sensory deficits. HEENT: Face is symmetric. Pupils are equal and reactive. Extraocular movements are intact. NECK: Supple. No JVD. No thyromegaly. No submental, submandibular, pre- /postauricular, occipital or supraclavicular lymphadenopathy. CHEST: Normal chest expansion. No Telemetry. LUNGS: Absence of any rales, rhonchi or any wheezing. CARDIOVASCULAR: Regular. S1 and S2 normal. No appreciable rubs, murmurs or gallops. ABDOMEN: Soft, nontender, and nondistended. There is no rebound, voluntary guarding, or rigidity. : Deferred. No Armijo. EXTREMITIES: Non-edematous and not cyanotic. No clubbing. Good capillary refill. SKIN: No skin breakdown. Assessment/Plan: ASSESSMENT: + DVT to right mid distal femoral vein, POA S/p IVC filter by IR 10/19/2024 Acute Metabolic acidosis, POA Ileostomy status status post robotic assisted ileostomy closure with small bowel resection and robotic creation of transverse colostomy 10/16/24 History of CKD stage 4 Diabetes mellitus type 2 with associated hyperglycemia Hypertension Obesity BMI 37.0 Hyperlipidemia Home Medications: Reported Medications Insulin Regular, Human (Afrezza) 12 Unit Cart.inhal, 36 UNIT IH NOON 10/12/24 Insulin Degludec (Tresiba) 100 Unit/Ml Vial, 14 UNIT SQ HS, VIAL 10/12/24 Diphenoxylate HCl/Atropine (Lomotil Tablet) 2.5 Mg-0.025 Mg Tablet, 1 EACH PO TID, TAB 10/12/24 Ferrous Gluconate (Iron) 236 Mg (27 Mg Iron) Tablet, 236 MG PO DAILY, TAB 10/12/24 Insulin Lispro (Humalog Kwikpen) 200 Unit/Ml (3 Ml) Insuln.pen, 40 UNIT SQ BIDMEALS, SYRINGE 10/12/24 Apixaban (Eliquis) 2.5 Mg Tablet, 2.5 MG PO BID, TAB 10/12/24 Sertraline HCl (Zoloft) 50 Mg Tablet, 50 MG PO DAILY, TAB 07/01/24 Midodrine HCl (Midodrine HCl) 10 Mg Tablet, 10 MG PO BID, TAB 07/01/24 Buspirone HCl (Buspirone HCl) 5 Mg Tablet, 5 MG PO BID, TAB 06/30/24 Acetaminophen (Tylenol) 325 Mg Tablet, 325 MG PO AD PRN for PAIN, TAB 06/30/24 Rosuvastatin Calcium (Rosuvastatin Calcium) 5 Mg Tablet, 5 MG PO HS, TAB 06/30/24 Melatonin (Melatonin) 5 Mg Capsule, 5 MG PO HS, CAP 06/30/24 Multivits-Min/FA/Lycopene/Lut (Centrum Silver Tablet) 0.4 Mg-300 Mcg-250 Mcg Tablet, 1 EACH PO AM, TAB 06/30/24 Zaleplon (Zaleplon) 5 Mg Capsule, 5 MG PO HS, CAP 06/30/24 Sodium Bicarbonate (Sodium Bicarbonate) 650 Mg Tablet, 650 MG PO BID, TAB 06/30/24 Time spent arranging discharge: 31-60 minutes ATTESTATION BY PHYSICIAN I have seen and examined the patient. I reviewed the documentation, medical decision making, and treatment plan as noted by the mid-level provider above. I agree with the findings and plan of care. MD MORIS Guthrie KATARZYNA B [facility] Oct 20, 2024 08:18
[2024-10-20] MEDS: MAGNESIUM OXIDE 400 MG TABLET PO ONE (08:38)
[2024-10-20] MEDS: PoTASSium chloRIDE 20MEQ ER 20 MEQ ERTAB PO ONE (08:39)
[2024-10-20] MEDS: INSULIN GLARgine 100 UNITS/ML 10 ML VIAL SQ SCH (08:48)
--- NOTE | 2024-10-20 19:58 | PN ---
endocrinology progress note Date of Service: Oct 20, 2024 , subjective: glucose are stable running low normal, so insulin was decreased patient has dm-2 for many years and use toujeo 10 units daily, humalog 30 units bid and afrezza insulin 20 units before lunch. hba1c 8.6% and she follows for dm-2 with endocrinology in [place]. REVIEW OF SYSTEMS CONSTITUTIONAL: Denies fevers, chills, or night sweats. No unintentional weight loss reported. NEUROLOGICAL: Denies headache, amaurosis fugax, motor weakness, sensory deficit, vertigo/spinning sensation, gait abnormalities, or tremors. ENT: No hearing loss, otalgia, otorrhea, rhinitis, rhinorrhea, hoarseness, or sore throat. CARDIOVASCULAR: Denies any exertional angina, dyspnea on exertion, orthopnea, paroxysmal nocturnal dyspnea, palpitations, life-threatening arrhythmias, claudication. PULMONARY: Denies any shortness of breath, cough, phlegm/sputum, hemoptysis, pleuritic chest pain. SLEEP: Denies morning headaches, daytime somnolence or napping. Denies difficulty falling asleep, staying asleep, waking from sleep. Denies knowledge of snoring. GASTROINTESTINAL: Denies any type of dysphagia to either liquids or solids. Denies nausea, vomiting, pyrosis, early satiety, abdominal pain, diarrhea, constipation, or changes in stool consistency or caliber. Denies coffee-ground emesis, hematemesis, hematochezia, or melanotic stools. GENITOURINARY: Denies frequency, urgency, nocturia, hematuria or incontinence (Storage/Irritative symptoms.) Low urinary stream, straining to void, urinary intermittency or hesitancy, splitting of the voiding stream, terminal dribbling. ENDOCRINOLOGIC: Denies polyuria, polydipsia, polyphagia or heat/cold intolerances. HEMATOLOGIC: Denies thrombophilia/previous clots, or coagulopathy/bleeding disorders. ONCOLOGIC: Denies personal history of malignancy. DERMATOLOGIC: Denies rashes or pruritus. PSYCHIATRIC: Denies any suicidal or homicidal ideation. Denies hallucinations. PAST MEDICAL HISTORY: Hypertension, hyperlipidemia, diabetes mellitus type 2, obesity, CKD stage 4 PAST SURGICAL HISTORY: History of ileostomy, history of colo anal anastomosis PAST SOCIAL HISTORY: Denied smoking, alcohol, drug FAMILY HISTORY: Denied any pertinent family history Coded Allergies: Penicillins (Unverified Allergy, Unknown, hives, 06/30/24) ASSESSMENT: Diabetes mellitus type 2 with associated hyperglycemia patient has dm-2 for many years and use toujeo 10 units daily, humalog 30 units bid and afrezza insulin 20 units before lunch. hba1c 8.6% and she follows for dm-2 with endocrinology in [place]. glucose are stable running low normal, so insulin decreased Ileostomy status status post robotic assisted ileostomy closure with small bowel resection and robotic creation of transverse colostomy History of CKD stage 4 Hypertension Obesity BMI 37.0 Hyperlipidemia PLAN: - decrease lantus to 15 units daily -decrease regular insulin to 5 units qac before meals continue medium dose ssi check glucose q x 6 hourly follows with endocrinology in [place] Vitals/Labs Vital Signs Date Time Temp Pulse Resp B/P (MAP) Pulse Ox O2 Delivery O2 Flow Rate FiO2 10/20/24 08:00 97 Room Air* 0 21 10/20/24 07:27 98.1 69 18 97/56 Laboratory Tests 10/20/24 05:09 Medications Current Medications Ertapenem 50 ml @ 100 mls/hr ONCE ONCE IV; Start 10/14/24 at 06:30; Stop 10/14/24 at 06:59; Status DC Lidocaine HCl 100 mg STK-MED ONCE .ROUTE; Start 10/14/24 at 06:47; Stop 10/14/24 at 06:47; Status DC Propofol 200 mg STK-MED ONCE IV; Start 10/14/24 at 06:47; Stop 10/14/24 at 06:47; Status DC Midazolam HCl 2 mg STK-MED ONCE .ROUTE; Start 10/14/24 at 06:48; Stop 10/14/24 at 06:48; Status DC Rocuronium [place] 50 mg STK-MED ONCE .ROUTE; Start 10/14/24 at 06:48; Stop 10/14/24 at 06:48; Status DC Fentanyl Citrate 100 mcg STK-MED ONCE .ROUTE; Start 10/14/24 at 06:48; Stop 10/14/24 at 06:48; Status DC Sodium Chloride 1,000 ml @ As Directed STK-MED ONCE IV Last administered on 10/14/24at 09:00; Start 10/14/24 at 06:53; Stop 10/14/24 at 06:53; Status DC Dexmedetomidine HCl 200 mcg STK-MED ONCE IV; Start 10/14/24 at 07:11; Stop 10/14/24 at 07:12; Status DC Ketamine HCl 500 mg STK-MED ONCE IJ; Start 10/14/24 at 07:12; Stop 10/14/24 at 07:12; Status DC Scopolamine HBr 1 patch STK-MED ONCE TD; Start 10/14/24 at 07:19; Stop 10/14/24 at 07:19; Status DC Acetaminophen 100 ml @ As Directed STK-MED ONCE .ROUTE; Start 10/14/24 at 07:19; Stop 10/14/24 at 07:20; Status DC Lidocaine/ Epinephrine 20 ml STK-MED ONCE .ROUTE Last administered on 10/14/24at 09:08; Start 10/14/24 at 07:29; Stop 10/14/24 at 07:29; Status DC Bupivacaine HCl 5 mg STK-MED ONCE .ROUTE Last administered on 10/14/24at 09:08; Start 10/14/24 at 07:30; Stop 10/14/24 at 07:30; Status DC Phenylephrine HCl 10 mg STK-MED ONCE IV; Start 10/14/24 at 08:36; Stop 10/14/24 at 08:37; Status DC Dexamethasone Sodium Phosphate 10 mg STK-MED ONCE .ROUTE; Start 10/14/24 at 08:50; Stop 10/14/24 at 08:50; Status DC Ondansetron HCl 4 mg STK-MED ONCE .ROUTE; Start 10/14/24 at 08:50; Stop 10/14/24 at 08:51; Status DC Diphenhydramine HCl 50 mg STK-MED ONCE .ROUTE; Start 10/14/24 at 08:52; Stop 10/14/24 at 08:53; Status DC Ketorolac Tromethamine 30 mg STK-MED ONCE .ROUTE; Start 10/14/24 at 08:52; Stop 10/14/24 at 08:53; Status DC Rocuronium [place] 50 mg STK-MED ONCE .ROUTE; Start 10/14/24 at 09:05; Stop 10/14/24 at 09:05; Status DC Ephedrine Sulfate 50 mg STK-MED ONCE .ROUTE; Start 10/14/24 at 09:12; Stop 10/14/24 at 09:12; Status DC Indocyanine Green 25 mg STK-MED ONCE IJ; Start 10/14/24 at 09:19; Stop 10/14/24 at 09:20; Status DC Phenylephrine HCl 10 mg STK-MED ONCE IV; Start 10/14/24 at 09:36; Stop 10/14/24 at 09:37; Status DC Phenylephrine HCl 10 mg STK-MED ONCE IV; Start 10/14/24 at 09:38; Stop 10/14/24 at 09:38; Status DC Fentanyl Citrate 100 mcg STK-MED ONCE .ROUTE; Start 10/14/24 at 11:02; Stop 10/14/24 at 11:03; Status DC Glycopyrrolate 1 mg STK-MED ONCE .ROUTE; Start 10/14/24 at 11:47; Stop 10/14/24 at 11:48; Status DC Neostigmine Methylsulfate 10 mg STK-MED ONCE IV; Start 10/14/24 at 11:48; Stop 10/14/24 at 11:48; Status DC Insulin Human Regular 300 unit STK-MED ONCE .ROUTE Last administered on 10/14/24at 12:30; Start 10/14/24 at 12:25; Stop 10/14/24 at 12:25; Status DC Meperidine HCl 25 mg STK-MED ONCE .ROUTE Last administered on 10/14/24at 12:38; Start 10/14/24 at 12:35; Stop 10/14/24 at 12:35; Status DC Acetaminophen/ Hydrocodone Bitart 1 tab Q4H PRN PO Last administered on 10/19/24at 06:35; Start 10/14/24 at 13:00; Stop 10/19/24 at 12:59; Status DC Morphine Sulfate 2 mg Q3H PRN IV Last administered on 10/19/24at 00:42; Start 10/14/24 at 13:00; Stop 10/19/24 at 15:59; Status DC Morphine Sulfate 4 mg Q3H PRN IV Last administered on 10/19/24at 14:37; Start 10/14/24 at 13:00; Stop 10/19/24 at 15:59; Status DC Ondansetron HCl 4 mg Q4H PRN IVP Last administered on 10/19/24at 20:33; Start 10/14/24 at 13:00; Stop 10/20/24 at 10:37; Status DC Acetaminophen 650 mg Q4H PRN PO Last administered on 10/18/24at 13:32; Start 10/14/24 at 13:00; Stop 10/20/24 at 10:37; Status DC Famotidine 20 mg Q24H IV Last administered on 10/19/24at 20:23; Start 10/14/24 at 21:00; Stop 10/20/24 at 10:37; Status DC Insulin Human Regular AD PRN SQ; Start 10/14/24 at 13:00; Stop 10/14/24 at 16:43; Status DC Potassium Chloride/Dextrose/ Sod Cl 1,000 ml @ 75 mls/hr [id number] IV; Start 10/14/24 at 13:00; Stop 10/14/24 at 16:43; Status DC Sodium Chloride 1,000 ml @ 75 mls/hr [id number] IV Last administered on 10/19/24at 04:39; Start 10/14/24 at 17:00; Stop 10/20/24 at 10:37; Status DC Insulin Glargine 14 units HS SQ Last administered on 10/14/24at 20:59; Start 10/14/24 at 21:00; Stop 10/15/24 at 07:31; Status DC Insulin Human Regular INSULIN SLIDING SCAL... ACHS SQ Last administered on 10/16/24at 20:57; Start 10/14/24 at 21:00; Stop 10/17/24 at 17:18; Status DC Dextrose 50 ml AD PRN IV; Start 10/14/24 at 17:00; Stop 10/20/24 at 10:37; Status DC Glucagon 1 mg AD PRN IM; Start 10/14/24 at 17:00; Stop 10/20/24 at 10:37; Status DC Insulin Glargine 20 units DAILY SQ; Start 10/15/24 at 09:00; Stop 10/15/24 at 21:45; Status DC Insulin Human Regular 5 unit TIDAC SQ Last administered on 10/15/24at 17:23; Start 10/15/24 at 11:30; Stop 10/15/24 at 21:45; Status DC Sodium Bicarbonate 50 meq ONCE ONCE IV; Start 10/15/24 at 12:00; Stop 10/15/24 at 12:04; Status DC Sodium Bicarbonate 650 mg TID PO Last administered on 10/20/24at 08:38; Start 10/15/24 at 14:00; Stop 10/20/24 at 10:37; Status DC Insulin Glargine 25 units DAILY SQ; Start 10/16/24 at 09:00; Stop 10/16/24 at 06:23; Status DC Insulin Human Regular 8 unit TIDAC SQ Last administered on 10/16/24at 17:49; Start 10/16/24 at 07:30; Stop 10/16/24 at 21:52; Status DC Insulin Glargine 35 units DAILY SQ Last administered on 10/18/24at 08:30; Start 10/16/24 at 09:00; Stop 10/18/24 at 19:23; Status DC Metoclopramide HCl 10 mg ONCE ONCE IVP Last administered on 10/16/24at 09:13; Start 10/16/24 at 09:00; Stop 10/16/24 at 09:01; Status DC Dexamethasone 8 mg ONCE ONCE PO Last administered on 10/16/24at 09:13; Start 10/16/24 at 09:00; Stop 10/16/24 at 09:01; Status DC Potassium Chloride 100 ml @ 50 mls/hr ONCE ONCE IV Last administered on 10/16/24at 11:23; Start 10/16/24 at 11:00; Stop 10/16/24 at 12:59; Status DC Potassium Chloride 40 meq ONCE ONCE PO; Start 10/16/24 at 13:00; Stop 10/16/24 at 13:01; Status DC Sodium Bicarbonate 50 meq ONCE ONCE IV Last administered on 10/16/24at 14:50; Start 10/16/24 at 13:00; Stop 10/16/24 at 13:01; Status DC Ferric Sodium Gluconate Complex 125 mg/Sodium Chloride 110 ml @ 110 mls/hr DAILY IV Last administered on 10/19/24at 08:12; Start 10/17/24 at 09:00; Stop 10/19/24 at 20:00; Status DC Insulin Human Regular 14 unit TIDAC SQ Last administered on 10/17/24at 17:18; Start 10/17/24 at 07:30; Stop 10/18/24 at 06:50; Status DC Potassium Chloride 40 meq ONCE ONCE PO Last administered on 10/17/24at 10:47; Start 10/17/24 at 09:30; Stop 10/17/24 at 09:31; Status DC Insulin Human Regular INSULIN SLIDING SCAL... ACHS SQ Last administered on 10/20/24at 06:59; Start 10/17/24 at 21:00; Stop 10/20/24 at 10:37; Status DC Insulin Human Regular 10 unit TIDAC SQ Last administered on 10/18/24at 13:20; Start 10/18/24 at 11:30; Stop 10/19/24 at 19:35; Status DC Docusate Sodium 100 mg ONCE ONCE PO Last administered on 10/18/24at 14:20; Start 10/18/24 at 14:00; Stop 10/18/24 at 14:01; Status DC Insulin Glargine 25 units DAILY SQ; Start 10/19/24 at 09:00; Stop 10/19/24 at 19:35; Status DC Potassium Chloride 100 ml @ 50 mls/hr PROTOCOL IV; Start 10/19/24 at 09:00; Stop 10/20/24 at 10:37; Status DC Lidocaine HCl 20 ml STK-MED ONCE .ROUTE; Start 10/19/24 at 11:00; Stop 10/19/24 at 11:00; Status DC Heparin Sodium/ Sodium Chloride 500 ml @ As Directed STK-MED ONCE IV; Start 10/19/24 at 11:00; Stop 10/19/24 at 11:00; Status DC Iohexol 50 ml STK-MED ONCE IV; Start 10/19/24 at 11:04; Stop 10/19/24 at 11:05; Status DC Lidocaine HCl 50 ml STK-MED ONCE .ROUTE; Start 10/19/24 at 11:14; Stop 10/19/24 at 11:14; Status DC Heparin Sodium/ Sodium Chloride 500 ml @ As Directed STK-MED ONCE IV; Start 10/19/24 at 11:14; Stop 10/19/24 at 11:15; Status DC Iohexol 50 ml STK-MED ONCE IV; Start 10/19/24 at 11:15; Stop 10/19/24 at 11:15; Status DC Fentanyl Citrate 100 mcg STK-MED ONCE .ROUTE; Start 10/19/24 at 11:36; Stop 10/19/24 at 11:36; Status DC Midazolam HCl 2 mg STK-MED ONCE .ROUTE; Start 10/19/24 at 11:36; Stop 10/19/24 at 11:36; Status DC Insulin Glargine 20 units DAILY SQ Last administered on 10/20/24at 08:48; Start 10/20/24 at 09:00; Stop 10/20/24 at 10:37; Status DC Insulin Human Regular 7 unit TIDAC SQ Last administered on 10/20/24at 07:00; Start 10/20/24 at 07:30; Stop 10/20/24 at 10:37; Status DC Morphine Sulfate 2 mg [id number] PRN IVP Last administered on 10/19/24at 20:24; Start 10/19/24 at 20:30; Stop 10/20/24 at 10:37; Status DC Acetaminophen/ Hydrocodone Bitart 1 tab Q4H PRN PO Last administered on 10/20/24at 10:27; Start 10/19/24 at 20:30; Stop 10/20/24 at 10:37; Status DC Potassium Chloride 40 meq ONCE ONCE PO Last administered on 10/20/24at 08:39; Start 10/20/24 at 08:30; Stop 10/20/24 at 08:31; Status DC Magnesium Oxide 400 mg ONCE ONCE PO Last administered on 10/20/24at 08:38; Start 10/20/24 at 08:30; Stop 10/20/24 at 08:31; Status DC RUBIO FARRIS MD Oct 20, 2024 19:58
--- NOTE | 2024-10-20 20:02 | PN ---
SUBJECTIVE: This patient has multiple problems including renal failure and anemia. The patient has underlying ileostomy, rectovaginal fistula and the patient has ileostomy closure on 10/16. The patient has apparently DVT, IVC filter placed and no other associated finding. No other aggravating or relieving factor. No other associated symptoms. The patient is weak. The patient has underlying acidosis and underlying history of chronic kidney disease, acute on chronic renal failure, diabetes, hypertension, obesity, hyperlipidemia. No other associated finding. No other aggravating or relieving factor. PHYSICAL EXAMINATION: GENERAL: Pale, no other distress or deformities, lying in bed. VITAL SIGNS: Blood pressure now is 108/61, pulse 81, respiratory rate is 18, afebrile. HEENT: Head is atraumatic. Pupils are round and reactive. Sclerae are anicteric. Conjunctivae not pale. Oral mucosa is not dry. NECK: Supple. No masses or bruits. Thyroid is palpable. Neck has no bruits. CHEST: Shows equal thoracic percussion note being resonant in all areas. CARDIAC: Regular rhythm, no rub, no S3, S4. No parasternal heave. ABDOMEN: With no guarding or tenderness. Bowel sounds are normoactive. No free fluid. EXTREMITIES: With no edema. No cyanosis or clubbing. BACK: No tenderness or back deformities. LABORATORY DATA: We have reviewed the labs in detail. Low hemoglobin of 7.7. This is somewhat worsened. Creatinine is still elevated at 1.8. PROBLEMS: Acute renal failure, anemia, ileostomy closure colostomy, multiple other comorbidities, IVC filter and DVT. PLAN: To continue monitoring on renal function, electrolytes. Sugars intake, output and weight will be monitored. Nonsteroidal drugs will be avoided. Dose of medicine will be adjusted. The patient will have continued insulin and we will followup on renal function and overall status. Condition remained guarded, seen several times. I thank you for this patient. I have discussed with other team members in detail. TID: [id number] RECEIPT: [id number] [facility]
== END 2024-10-20 10:37 | disposition home or self-care (01) | DRG 330 ==
LOC: DAHIP 10-14 06:45 → 3AH 10-14 14:50
PROVIDERS: ADMIT Internal Medicine Sleep Medicine; ATTEND Internal Medicine Sleep Medicine
PROC: 0DB80ZZ Excision of Small Intestine, Open Approach (ICD-10-PCS; principal; 2024-10-14 08:19)
PROC: 0D1L0Z4 Bypass Transverse Colon to Cutaneous, Open Approach (ICD-10-PCS; 2024-10-14 08:19)
PROC: 8E0W0CZ Robotic Assisted Procedure of Trunk Region, Open Approach (ICD-10-PCS; 2024-10-14 08:19)
PROC: 06H03DZ Insertion of Intraluminal Device into Inferior Vena Cava, Percutaneous Approach (ICD-10-PCS; 2024-10-19)
DX: Z43.2 Encounter for attention to ileostomy (principal); E87.20 Acidosis, unspecified; N82.3 Fistula of vagina to large intestine; E87.21 Acute metabolic acidosis; I82.412 Acute embolism and thrombosis of left femoral vein; K62.5 Hemorrhage of anus and rectum; N17.9 Acute kidney failure, unspecified; N18.4 Chronic kidney disease, stage 4 (severe); E66.01 Morbid (severe) obesity due to excess calories; E11.22 Type 2 diabetes mellitus with diabetic chronic kidney disease; Z68.37 Body mass index [BMI] 37.0-37.9, adult; E78.5 Hyperlipidemia, unspecified; D64.9 Anemia, unspecified; E11.65 Type 2 diabetes mellitus with hyperglycemia; I12.9 Hypertensive chronic kidney disease with stage 1 through stage 4 chronic kidney disease, or unspecified chronic kidney disease; Z79.01 Long term (current) use of anticoagulants; Z79.4 Long term (current) use of insulin; Z95.828 Presence of other vascular implants and grafts; Z85.048 Personal history of other malignant neoplasm of rectum, rectosigmoid junction, and anus; Z86.718 Personal history of other venous thrombosis and embolism; Z92.21 Personal history of antineoplastic chemotherapy; Z98.84 Bariatric surgery status; Z99.2 Dependence on renal dialysis
CPT/HCPCS: 36415; 36600; 37191; 76770; 80048; 80051; 80053; 81001; 81025; 82435; 82570; 82728; 82803; 82947; 82948; 83036; 83540; 83550; 83605; 83735; 83935; 84100; 84132; 84295; 84443; 84550; 84703; 85025; 85027; 85610; 85730; 87086; 88307; 93005; 93970; 99156; A4344; C1769; G0378; J1100; J1200; J1335; J1644; J1815; J1885; J2003; J2175; J2250; J2270; J2371; J2405; J2704; J2710; J2765; J2916; J3010; J3480; J3490; J7030; J7120; J8540; Q9967; A4215; A4221; A4222; A4223; A4600; A4649; A4663; A6260; C1880; C1894; J0665